=== PATIENT | female | born 1945 | race Caucasian/White ===

== ENCOUNTER 2017-05-31 16:18 | Inpatient (IN) | payer MEDICARE, OTHER ==
[~2017-05-31] VITALS: Ht 162.6 cm; Wt 92.3 kg
[~2017-05-31 16:18] MED LIST: ACETAMINOPHEN500 MG PO; ALBUTEROL2.5 MG/3 M INH; ALLERGY25 MG PO; AMLODIPINE BESYL5 MG PO; AMOX TR-K CLV1 EAC1 PO; ASPIRIN EC325 MG PO; AVASTIN100 MG/4 M IV; AVASTIN100 MG/4 M OU; B12 5,000 MCG1 EACH PO; BENADRYL25 MG PO; BENZONATATE100 MG PO; BUPROPION XL300 MG PO; CARBAMAZEPINE200 MG PO; CARVEDILOL25 MG PO; COZAAR50 MG PO; D3 DOTS2000 UNIT PO; DICLOFENAC SOD2.5 ML OPTH; ERYTHROMYCIN3.5 GM OPTH; FERROUS SULFAT325 MG PO; FLOVENT HFA12 GM INH; FLUZONE HI180 MCG/07 IM; FUROSEMIDE20 MG PO; FUROSEMIDE40 MG PO; GEMFIBROZIL600 MG PO; HYDRALAZINE HCL25 MG PO; IPRAT-ALBUT 0.5-3 ML INH; LIQUITEARS15 ML OU; LOPID600 MG PO; LORAZEPAM0.5 MG PO; LOSARTAN POTASS50 MG PO; LOSARTAN-HCTZ1 EACH PO; MAG-OXIDE400 MG PO; MELOXICAM7.5 MG PO; MUCINEX D ER T1 EACH PO; MUCINEX600 MG PO; NICOTINE PATCH1 EA TD; NICOTINE PATCH1 EAC1 TD; NICOTINE PATCH1 EAC3 TD; NICOTINE1 EAC2 TD; NITROGLYCERIN0.4 MG SL; OMEPRAZOLE20 M1 PO; OPCON-A EYE DRO15 ML OPTH; PLAVIX75 MG PO; POTASSIUM CHLO20 ME1 PO; PRAVASTATIN SOD40 MG PO; PREDNISONE20 MG PO; PROAIR HFA8.5 GM IH; PROAIR HFA8.5 GM INH; PROVENT NS; REFRESH CLASSI1 EACH OS; SIMVASTATIN40 MG PO; TUMS ULTRA400 MG PO; TUMS200 MG PO; ZOSTAVAX VIAL1 VIAL SUB-Q; [UNRECOGNIZED DRUG - OTHER] PO; [UNRECOGNIZED DRUG - OTHER] PO
--- NOTE | 2017-05-31 21:04 | NUR ---
pt arrived to floor via stretcher. pt alert and oriented x4. pleasent demeanor. took standing weight, pt able to stand with 2 person assist and step onto scale, pt sob after standing on scale. gave pt 250mls of water and explained to pt that she is on a fluid restriction. fritz in place and draining freely. pt sl is a field start, wnl and flushes well. gave warm blankets. oriented pt to room and call light. pt has call light in reach. no further needs at this time.
--- NOTE | 2017-05-31 21:59 | NUR ---
PT REFUSED LOVENOX INJECTION TONIGHT, SEE NOTE ON EMAR FOR FURTHER DETAILS. WILL NOTIFY DR SALVADOR VIA MESSAGE ON [employer].
--- NOTE | 2017-05-31 23:02 | NUR ---
PT RESTING QUIETLY. EYES ARE CLOSED, RR WNL AND UNLABORED.
--- NOTE | 2017-06-01 00:22 | NUR ---
PT APPEARS TO BE SLEEPING, RR WNL AND UNLABORED.
--- NOTE | 2017-06-01 02:49 | NUR ---
NOTIFIED DR SALVADOR OF PT'S DECREASED BLOOD PRESSURE. PT ASYMPTOMATIC. HOLD MORNING DOSE OF LASIX PER DR SALVADOR'S ORDER, NURSE NOTIFY ORDER PLACED AND HOLD ACKNOWLEDGMENT PUT ON LASIX IN EMAR. PT NOSE "STUFFED UP." PLACED PT ON OXYMASK AND PUT HUMITITY ON O2 FOR COMFORT. PT HAS NO FURTHER NEEDS AT THIS TIME. CALL LIGHT IN REACH. DOUGLAS DRAINING LARGE AMOUNTS OF DILUTE URINE. CALL LIGHT IN REACH.
--- NOTE | 2017-06-01 05:01 | NUR ---
PT APPEARS TO BE SLEEPING. RR WNL AND UNLABORED. OXYMASK IN PLACE.
--- NOTE | 2017-06-01 05:56 | NUR ---
PT HAD UNEVENTFUL NIGHT, SLEPT MAJORITY OF SHIFT. PLACED PT ON OXYMASK DUE TO HER BREATHING OUT OF HER MOUTH. ALERT AND ORIENTED X4. PT GETS ANXIOUS AT TIMES, CURRENT SMOKER, REFUSES SMOKING CESSATION MEDICATIONS AT THIS TIME. STOOD AT BEDSIDE AND UP TO SCALE WITH 2 PERSON ASSIST, PT STEADY ON FEET ONCE STANDING BUT IS SOB. PT USES CALL LIGHT APPROPRIATLY. LASIX GIVEN.
--- NOTE | 2017-06-01 06:51 | NUR ---
CALLED DR SALVADOR REGARDING LOW BLOOD PRESSURE, ORDERS RECEIVED TO HOLD AM COREG
--- NOTE | 2017-06-01 08:00 | NUR ---
PT AWAKE, SITTING AT EDGE OF BED EATING BREAKFAST. AM MEDS ADMINISTERED. DENIES PAIN OR NAUSEA AT THIS TIME. ALERT AND ORIENTED. C/O SOME DIZZINESS, BP 99/42. CALL LIGHT WITHIN REACH.
--- NOTE | 2017-06-01 09:20 | NUR ---
GOT PT UP TO BEDSIDE COMMODE TO TRY FOR A BM, WAS UNSUCCESSFUL. SHE STATED SHE FELT EXCRUCIATING DIZZINESS. TOLD MARIA ALEJANDRA THE RN, I TOOK HER BLOOD SUGAR (107) AND HER BP WAS FINE. HER OXYGEN SATS WERE 80%, I ASKED THE PT IF SHE WAS A CO2 RETAINER, THEN BUMPED HER O2 UP TO 5 LITERS. NOTIFIED HER NURSE, MARIA ALEJANDRA CHANGED HER TO THE OXYMASK. CALLED DR SALVADOR.
--- NOTE | 2017-06-01 09:25 | NUR ---
JANA ALEMAN ASSISTED PT TO BSC AND BACK TO BED. PT COMPLAINED OF SEVERE DIZZINESS. BP 108/50, O2 SAT 80% ON 3L NC. PT PLACED ON 5L OXY MASK, SATS INCREASED TO 95%. PT GRADUALLY WEANED BACK TO 3LNC, SATTING 90-92%. NOTIFIED DR. SALVADOR ABOUT PT EPISODE, NO NEW ORDERS AT THIS TIME. WILL CONTINUE TO MONITOR. CALL LIGHT WITHIN REACH.
--- NOTE | 2017-06-01 10:00 | NUR ---
PATIENT SITTING UP IN BED. WASHED FACE HANDS AND NECK. REFUSED ORAL CARE. CALL BUTTON IN REACH NO OTHER NEEDS AT THIS TIME.
--- NOTE | 2017-06-01 12:15 | NUR ---
PT ATE SMALL AMOUNT OF LUNCH BUT STATES SHE IS NOT THAT HUNGRY, ASKED ME TO TAKE HER TRAY. SATS 91% ON 4LNC. DENIES FURTHER NEEDS OR CONCERNS AT THIS TIME. CALL LIGHT WITHIN REACH.
--- NOTE | 2017-06-01 12:35 | NUR ---
SD RESTING IN BED, SARCASTIC EVER. SHE MENTIONED HER KNEE GAVE OUT AND DOWN SHE WENT. SEVERAL BRUISES. SHE MENTIONED THAT HER SON WANTS HER TO CONSIDER ASSISTED LIVING. PT NOT TOO KEEN ON THIS IDEA. WE DISCUSSED SOMEMORE, AND HER SON JOCELYN CAME IN TO VISIT. PT REQUESTED COFFEE, ANIL BESS SAID NO MORE FLUIDS BECAUSE HER CHF IF CAUSING FLUID RETENTION. WILL CHECK BACK LATER
--- NOTE | 2017-06-01 13:43 | EKG ---
[facility] [address] [facility] [place] [address] Signed Sinus rhythm with premature atrial complexes Possible Left atrial enlargement Rightward axis Pulmonary disease pattern Nonspecific T wave abnormality Prolonged QT Abnormal ECG When compared with ECG of 17-FEB-2017 16:53, premature atrial complexes are now present Confirmed by FOX SALVADOR MD ([id number]) on 06/01/2017 1:43:07 PM Electronically Signed By: FOX SALVADOR MD 06/01/17 1343 PATIENT NAME: MARIOHUNG Artemio Electrocardiogram DATE OF : 49 PHYSICIAN: FOX SALVADOR MD REPORT #: [id number] REPORT IS CONFIDENTIAL AND NOT TO BE RELEASED WITHOUT AUTHORIZATION
--- NOTE | 2017-06-01 15:16 | NUR ---
PT SITTING UP IN BED WATCHING TV. REBECCA CARE AND DOUGLAS CARE PROVIDED BY JANA ALEMAN. PT SATTING 94% ON 4LNC. DENIES DIFFICULTY BREATHING. CALL LIGHT WITHIN REACH.
--- NOTE | 2017-06-01 16:22 | NUR ---
PT NOT HAPPY WITH FLUID RESTRICTION. NEEDS FREQUENT REMINDERS OF HOW MUCH SHE CAN HAVE. PT ALERT AND ORIENTED. 1PA TO BSC WITH FWW. LOOSE BMX2. CARDIAC DIET, MARIANNA WELL. RECIEVING IV LASIX. DOUGLAS IN PLACE PUTTING OUT CLEAR YELLOW URINE. ON 3L CHRONICALLY, SATTING MID 90'S. OCC MOIST COUGH. NYSTATIN POWDER AVAILABLE FOR PANNUS. SL. 1600ML FLUID RESTRICTION, DAILY WEIGHT.
--- NOTE | 2017-06-01 17:00 | NUR ---
PATIENT REFUSED SHOWER. DOUGLAS CATH CARE DONE. SKIN BREAK DOWN IN THE FOLDS OF HER SKIN AND GROIN. NURSE NOTIFIED.
--- NOTE | 2017-06-01 17:27 | NUR ---
PT C/O STABBING ABD PAIN. NOT LOCALIZED, STATES IT MOVES AROUND. FEELS BETTER WITHOUT MOVEMENT, WORSE WITH MOVEMENT. PT REPORTS NOT PASSING GAS BUT HAS HAD 2BM'S THIS SHIFT, ACTIVE BT. DENIES NAUSEA OR VOMITING. NOTIFIED DR. SALVADOR, STATED HE WOULD BE IN TO SEE HER SHORTLY.
--- NOTE | 2017-06-01 18:52 | NUR ---
PATIENT IN BED WATCHING TV. STATES HER STOMACH PAIN IS STILL THERE BUT NOT BAD. NO NEEDS AT THIS TIME. CALL BUTTON IN REACH.
--- NOTE | 2017-06-01 19:27 | NUR ---
RECEIVED REPORT FROM DAY SHIFT RN. PATIENT IS RESTING IN BED. PATIENT DENIES ANY PAIN. PATIENT DENIES ANY NEEDS AT THIS TIME. CALL LIGHT IN REACH. TELE DC'D. PULSE OX PUT ON PATIENT.
--- NOTE | 2017-06-01 20:31 | NUR ---
PATIENT ASSISTED TO BSC. PATIENT TOLERATED ACTIVITY WELL. PATIENT HAD X1 SMALL BM. PATIENT DID HAVE SOB WITH ACTIVITY. PATIENT IS NOW BACK IN BED RESTING. PATIENT DENIES ANY FURTHER NEEDS. CALL LIGHT IN REACH.
--- NOTE | 2017-06-01 21:45 | NUR ---
PATIENT ASSESMENT COMPLETED. PATIENTS EVENING MEDICATIONS GIVEN PER ORDER. PATIENT REFUSED ENOXAPRIN STATING "THAT MAKES BE BLEED, I AM NOT TAKING THAT STUPID THING HOW MANY TIMES DO I HAVE TO SAY THAT" PATIENT DENIES ANY PAIN AT THIS TIME. PATIENTS IV IS A FIELD START. NEW IV STARTED AND RECORDED. PATIENT IS SL. PATIENT IS AAOX3 AND USES CALL LIGHT APPROPRIATELY. PATIENT DENIES ANY FURTHER NEEDS RAMILA LIGHT IN REACH.
--- NOTE | 2017-06-01 23:52 | NUR ---
PATIENTS PULSE OX ALERTED STAFF THAT HER OXYGEN SATURATION FELL BELOW LIMITS. PATIENTS OXYGEN INCREASED TO 5L VIA NC. PATIENT REFUSES TO WEAR OXY MASK. PATIENT DENIES ANY FURTHER NEEDS. CALL LIGHT IN REACH.
--- NOTE | 2017-06-02 02:10 | NUR ---
PATIENT IS RESTING IN BED WITH EYES CLOSED. PULSE OX READINGS ARE WNL. CALL LIGHT IN REACH.
--- NOTE | 2017-06-02 02:29 | NUR ---
PATIENTS PULSE OX ALERTED STAFF. PATIENTS OXYGEN SATURATION WAS DOWN TO 71 AND KEPT FALLING THE LOWEST IT FELL WAS 62. PATIENT WAS BREATHING THROUGH MOUTH AND VERY SHALLOW WHILE ASLEEP. WOOKE PATIENT AND HAD PATIENT TAKE DEEP BREATHS IN THROUGH HER NOSE AND OUT THROUGH HER MOUTH. PATIENT EDUCATED AN AFGREED TO WEAR OXYMASK AT 5L. PATIENTS OXYGEN SATURATION INCREASED TO 92%. PATIENT DENIES ANY FURTHER NEEDS CALL LIGHT IN REACH.
--- NOTE | 2017-06-02 04:32 | NUR ---
PATIENT IS RESTIN GIN BED WITH EYES CLSOED, BREATHING IS SHALLOW AND UINLABORED. PATIENT REMAINS ON 3L VIA OXYMASK. PULSE OX READINGS ARE WNL.
--- NOTE | 2017-06-02 05:33 | NUR ---
PATIENT RESTED WELL THROUGHOUT THE SHIFT. PATIENT HAD X1 BM. PATIENT IS A SBA PIVOT TO BSC. SOB INCREASES W/ACTIVITY. PATIENT IS NOW ON 3L VIA OXYMASK. PATIENT IS ON A PULSE OX. PATIENT IS ON A CARDIAC DIET. PATIENT IS ON A 1600ML FLUID RESTRICTIONS AND STRUGGLES WITH COMPLIANCE. PATIENT HAS A DOUGLAS IN PLACE , URINE OUTPUT IS QS.
--- NOTE | 2017-06-02 06:45 | NUR ---
PATIENTS VITALS TAKEN AND RECORDED. PATIENT STANDING WEIGHT COMPLEDTED AND RECORDED. PATIENT PLACED BACK ON 3L VIA NC. PATIENT DENIES ANY NEEDS AT THIS TIME. CALL LIGHTIN REACH.
--- NOTE | 2017-06-02 09:03 | NUR ---
PATIENT AWAKE ATE WELL AT BREAKFAST. WHEN ENTERING ROOM, PATIENT ON NC OXYGEN SATURATION 70% PATIENT APPEARED DUSKY. INSTRUCTED PATIENT TO TAKE SOME DEEP BREATHS AND SATURATIONS INCREASED TO 88% ON 3L NC. AUSCULATION OF LUNGS COURSE WITH RALES AND AIR MOVEMENT SOUNDED TIGHT. NOTIFIED RT FOR BREATHING TX THAT WAS SCHEDULED AND DUE. NAHUM RT TO ROOM. PATIENT STATES " I NEED TO HAVE A BM RIGHT NOW". ENCOURAGED PATIENT TO HAVE BREATHING TREATMENT FIRST THEN THE ACTIVITY OF BM. PATIENT AGREED TO POC. FULL BODY ASSESMENT DONE, MORNING MEDICAITONS ADMINISTERED.
--- NOTE | 2017-06-02 10:33 | NUR ---
PT IS SITTING UP IN BED CURRENTLY TALKING TO THE DOCTOR. PT HAS AGREED TO SHOWER BUT WANTS TO WAIT UNTIL LATER DUE TO BEING PAINFUL, NURSE AWARE.
--- NOTE | 2017-06-02 11:00 | NUR ---
ROUNDED WITH DR. SALVADOR, PLAN TO DC DOUGLAS CATHETER IF TOLERATES ACTIVITY WITH SHOWER AND AMBULATING TO RECLINER. EDEMA IMPROVED TO LOWER EXTREMITIES, STILL PAINFUL. CHEST XRAY ORDERED FOR TOMORROW MORNING. PATIENT VERBALIZED UNDERSTANDING OF POC.
--- NOTE | 2017-06-02 11:46 | NUR ---
PT WALKED INTO BATHROOM, SHOWERED WITH ASSISTANCE, AND WALKED TO CHAIR. PT IS NOW SITTING CHAIR RECLINED WITH FEET UP.
--- NOTE | 2017-06-02 13:30 | NUR ---
STELLA DC'D@ [phone]. PATIENT TOLERATED ACTIVITY WELL. APPLIED NYSTATIN TO GROIN AREA AND LOWER PANNUS ON RIGHT SIDE. APPEARS PAINFUL, PATIENT GROANING AND GRIMACING WITH CARE. DISCUSSED WITH DR. SALVADOR. NEW ORDER FOR KENYA.
--- NOTE | 2017-06-02 18:00 | NUR ---
VERBALIZED TO DR. SALVADOR PATIENT OUTPUT AND FREQUENCY TO VOID OVER LAST 4 HOURS, DR. HILTON VERBALIZED AWARENESS. PLAN TO AMBULATE PATIENT IN HALLS TOMORROW. PATIENT IS TOLERATING ACTIVITY TO BSC AND AMBULATING IN BR WELL, SATURATIONS MAINTAINING IN LOW 90 PERCENTILE ON 3-4 L NC. MINIMAL SOB.
--- NOTE | 2017-06-02 18:00 | NUR ---
PATIENT UP FREQUENTLY TO BR, SOMETIMES NEEDING BSC SECONDARY TO URGENCY. PATIENT TOLERATING ACTIVITY WELL. EATING WELL. SATURATIONS MAINTAINGIN IN LOW 90 PERCENTILE ON 3L NC. PATIENT WEIGHT TODAY 245.7 REWEIGHED AROUND 1130, COMPLIANT WITH FLUID RESTRICITON HAS 300 ML LEFT FOR NETWORK DIRECTOR. LUNG SOUNDS COURSE WITH RALES THROUGHOUT, RECIEVING SCHEDULED BREATHING TX. CXR FOR TOMORROW MORNING. VS STABLE.
--- NOTE | 2017-06-02 19:30 | NUR ---
RECEIVED REPORT FROM DAY SHIFT RN. PATIENT IS UP TO THE BSC AT THIS TIME.
--- NOTE | 2017-06-02 19:37 | NUR ---
PATIENT UP TO BEDSIDE CAMODE. SBA W/FWW. NEW GOWN AND LINENS APPLIED. PATIENT COMPLAINED OF HER BOTTOM BEING "RAW" AFTER GOING TO THE BATHROOM. DESATIN CREAM APPLIED PER ORDER. PATIENT REPOSITIONED IN BED. PULSE OX IN PLACE, O2 4L PER NC. O2 SAT OF 92%. CALLLIGHT WITHIN REACH. NO FURTHER REQUEST AT THIS TIME.
--- NOTE | 2017-06-02 21:31 | NUR ---
PATIENT ASSESMENT COMPLETED. PATIENT IS RESTING IN BED WITH LEGS ELEVATED ON PILLOWS. PATIENT RATES PAIN AT A 2/10 IN HER LEGS. PATIENT DENIES THE NEED FOR ANY PAIN MEDICATION. PATIENT IS ON 3L VIA NC AND PULSE OX IN PLACE. PATIENT DENIES ANY NEEDS AT THIS TIME. CALL LIGHT IN REACH.
--- NOTE | 2017-06-02 21:37 | NUR ---
PATIENT UP TO BSC. 1PERSON STANDBY ASSIST. REBECCA CARE PROVIDED AND DESATIN CREAM APPLIED PER ORDER. PATIENT REPOSITIONED IN BED. PULSE OX IN PLACE. 4L NC AND O2 SAT OF 90%. PATIENT DENIES ANY FURTHER NEEDS AT THIS TIME. CALL LIGHT WITHIN REACH.
--- NOTE | 2017-06-02 22:15 | NUR ---
PATIENT ASSISTED TO BSC. PATIENT PIVOT TRANSFERRED TO BSC. PATIENT TOLERATED ACTIVITY WELL. PATIENT IS NOW BACK IN BED RESTING IN BED. PATIENT DENIES ANY FURTHER NEEDS AT THIS TIME. PATIENT IS ON 4L VIA NC AND PULSE OX IN PLACE. CALL LIGHT IN REACH.
--- NOTE | 2017-06-03 00:23 | NUR ---
PATIENT IS RESTING IN BED WITH EYES CLOSED. PULSE OX READINGS ARE WNL. PATIENT REMAINS ON 4L VIA NC. CALL LIGHT IN REACH.
--- NOTE | 2017-06-03 02:29 | NUR ---
PATIENT PLACED ON 4L VIA OXYMASK. PATIENTS PULKSE OX ALERTED STAFF THAT HER OXYGEN SATURATION WAS LOW. PATIENTS CALL LIGHT IN REACH.
--- NOTE | 2017-06-03 02:48 | NUR ---
PATIENT UP TO BSC W/STAND BY ASSIST. REBECCA CARE PROVIDED AND DESATIN APPLIED PER ORDERS. PATIENT COMPLAINED OF CRAMP IN HER RIGHT SIDE. PATIENT STATES SHE THINKS THE PAIN IS GAS RELATED. PATIENT REPOSITIONED IN BED. OXY MASK IN PLACE. O2 SAT 88%. PATIENT DENIES ANY FURTHER NEEDS AT THIS TIME. CALL LIGHT WITHIN REACH.
--- NOTE | 2017-06-03 04:28 | NUR ---
PATIENT UP TO [facility]/ STAND BY ASSIST. PATIENT COMPLAINS OF PAIN FROM HER "HEMORRHOIDS". DESATIN CREAM APPLIED PER ORDERS. PATIENT REPOSITIONED IN BED. NYSTATIN APPLIED TO AFFECTED AREA IN GROIN AND LOWER ABD. PATIENT GIVEN ICE WATER IN COMPLIANCE WITH FLUID RESTRICTION. NO FURTHER REQUEST AT THIS TIME. CALL LIGHT WITHIN REACH.
--- NOTE | 2017-06-03 04:45 | NUR ---
PATIENT COMPLAINED OF SOB. PATIENT SAT UP ON SIDE OF BED. PATIENT REQUEST BREATHING TREATMENT. RT CALLED. PATIENT ON XY MASK AT 4L. O2 SAT AT 94%. WILL REMAIN WITH PTIENT AT THIS TIME.
--- NOTE | 2017-06-03 04:55 | NUR ---
RT IN ROOM. PATIENT RECIEVED BREATHING TREATMENT. PATIENT REPORTED IMPROVED ABILITY TO CATCH HER BREATH. PATIENT REPOSITIONED IN BED. CALL LIGHT IN REACH. NO FURTHER REQUEST AT THIS TIME.
--- NOTE | 2017-06-03 05:17 | NUR ---
PATIENT RESTED WELL THROUGHOUT THE SHIFT. PATIENT IS A 1PA TO [facility] [place]. PATIENT IS ON A CRADICA DIET. PATIENT IS ON A 1600ML FLUID RESTRICTION AND IS TOLERATING IT WELL THIS SHIFT. PATIENT IS ON 4L VIA OXYMASK AND PULSE OX IS IN PLACE. PATIENT RECEIVED X1 PRN NEB. PATIENT IS AAOX3 AND USES CALL LIGHT APPROPRIATLEY.
--- NOTE | 2017-06-03 06:08 | NUR ---
PATIENT IS RESTING IN BED WATHCING TV. PATIENT DENIES ANY PAIN. PATIENT REMAINS ON 4L VIA OXYMASK. PATIENTS STANDING WEIGHT COMPLETED. PATIENT DENIES ANY FURTHER NEEDS AT THIS TIME. CALL LIGHT IS WITHIN REACH.
--- NOTE | 2017-06-03 09:58 | NUR ---
PT IS RESTING IN BED WATCHING TV. PT ASKED FOR ICE WILL CHECK WITH NURSE
--- NOTE | 2017-06-03 10:00 | NUR ---
PATIENT UP TO BATHROOM. HEMRROIHDS ARE BLEEDING, PATIENT IS HAVING FREQUENT SMALL BLACK STOOLS, NOTED ON IRON SUPPLEMENT AND CONTINUES TO PRODUCE GOOD URINE OUTPUT. VS STABLE. PATIENT ON 4L NC, EATING BREAKFAST. TOLERATING ACTIVITY TO BATHROOM WELL. FULL BODY ASSESMENT DONE.
--- NOTE | 2017-06-03 12:56 | NUR ---
MEDICATION RECONCILLIATION DIFFICULT TASK. PATIENT'S DR NOTE FROM [facility] HAS NUMEROUS MEDICATIONS, BUT PATIENT'S SON BROUGHT IN MEDICATION BOTTLES, BUT THE PATIENT ONLY HAS THE FOLLOWING MEDICAITONS: PRAVASTATIN 40 MG TAB FILLED ON 09/15/2016 FOR #90, YET HAS #116 AMLODIPINE 5 MG TAB FILLED 10/02/2016 UNOPENED CARVEDILOL 25 MG TAB, 3 BOTTLES, FILLED 07/20/2016, 10/02/2016, 12/15/2016, TWO UNOPENED, 3RD BOTTLE WITH #137/180 CLOPIDOGREL 75 MG TAB, 3 BOTTLES, FILLED 05/19/2016, 01/05/17, 03/22/2017, TWO UNOPENED, 3RD BOTTLE WITH #80/90 NITROSTAT FILLED 04/01/2016 ADVAIR 250/50 UNOPENED OVER THE COUNTER COUGH AND COLED PRODUCTS [facility] PHENYLEPHRINE PATIENT IS CLEARLY NON-COMPLIANT. PERHAPS THIS PATIENT NEEDS A BUSINESS PLANNING DIRECTOR OR FAMILY TO HELP [facility] MEDICATION ADMINISTRATION.
--- NOTE | 2017-06-03 13:00 | NUR ---
PATIENT PANNUS IMPROVING, APPLIED NYSTATIN AND DESTITIN TO AREA. PATIENT UP TO BR, TOLERATING ACTIVITY WELL. NO COMPLAINTS OF PAIN. PATIENT STATES "I WILL TAKE A WALK IN THE HALLS AFTER A NAP".
--- NOTE | 2017-06-03 14:21 | NUR ---
PT IS RESTING IN BED SAFELY WITH CALL LIGHT IN REACH. PT DID NOT NEED ANYTHING ELSE
--- NOTE | 2017-06-03 17:00 | NUR ---
PATIENT UP AMBULATING IN HALLS, TOLERATING ACTIVITY WELL, CONVERSING EASILY NO SOB. PHYSICAL THERAPY DID AN EVALUATION ON PATIENT FOUND PATIENT TO BE 80% WHILE AMBULATING BACK TO ROOM ON 5L NC. NEED TO INCREASE OXYGEN WHILE UP AMBULATING, PLAN FOR PHYSICAL THERAPY 2-3 MORE DAYS INPATIENT AND NEEDS HOME HEALTH PT AND CAREGIVER. DR. SALVADOR AWARE.
--- NOTE | 2017-06-03 18:09 | NUR ---
PT IS SITTING UP IN BED EATING DINNER. PT DID NOT NEED ANYHTING AT THE MOMENT
--- NOTE | 2017-06-03 18:50 | NUR ---
PATIENT UP AMBULATING WITH PHYSICAL THERAPY AND STAFF. NOTED PATIENT DESATS INTO LOW 80 PERCENTILE. NEED TO INCREASE OXYGEN WHILE UP 1-2 LITERS AND MONITOR. LASIX WILL RESUME TOMORROW. PATIENT FOLLOWED STRICT FLUID INTAKE. PATIENT CONTINUES TO BE UP FREQUENTLY URINATING AND HAVING BMS. HEMORRHOIDS INFLAMED AND BLEEDING.
--- NOTE | 2017-06-03 20:11 | NUR ---
DECLINES LOVENOX SC "DONT WANT IT" TEACHING DONE, STILL DECLINES
--- NOTE | 2017-06-03 20:15 | NUR ---
pt visiting, no requests, no c/o pain, O2 in place, no c/o SOB
--- NOTE | 2017-06-04 00:29 | NUR ---
PT ON 4L N/C O2, SLEEPING SOUNDLY, CONT PULSE OX IN PLACE, DESATTING TO 66%. O2 INCREASED TO 6L. SATS INMEDIATELY UP TO 90-92%, PT STATES 'MAR A MOUTH BREATHER, OF COURSE I DESAT WHEN I GO TO SLEEP, JUST GIVE ME THE MASK' RT NOTIFIED, HERE TO ASSESS PT. PT UP TO BSC. MASK READY TO BE PLACED ON AFTER PT GETS BACK TOP BED, DENIES SOB OR CP
--- NOTE | 2017-06-04 02:00 | NUR ---
Pt up to bsc, voided, lotion to area between buttocks, red colored irritated from frequent loose stools yesterday am and frequent wiping due to urinary frequency. Back to bed, tolerated well, O2 6L via mask, no request. 1 person assist, legs still tight from edema.
--- NOTE | 2017-06-04 03:00 | NUR ---
Up to bsc, voided, back to bed, tolerated well. uses one person assist. Lotion to red area between buttocks, area red and tender. Pt back in bed, Oxy mask in place at 6L O2. cont pulse ox in place sats 92-95%
--- NOTE | 2017-06-04 05:26 | NUR ---
Pt currently resting, eyes closed. O2 at 6L via mask, pt is a mouth breather and she desats at HS and after walking. 4L/NC when awake, gets neb txs. Pt lungs are coarse bilat. Continues to have tight edema of legs, upper butocks and left lateral body and abd area. on Lasix therapy. Received lotion to area between buttocks as it is red and painful from too many loose stools yesterday and urinary frequency. Pt declined Lovenox. Not very receptive to teaching
--- NOTE | 2017-06-04 08:35 | NUR ---
PT RESTING SOUNDLY IN BED, EYES CLOSED, RESP EVEN AND UNLABORED. SATS 95% ON 5LNC. AWOKE EASILY TO VOICE. REQUESTED ASSISTANCE TO COMMODE. SBA TO BSC WITH WALKER. VOIDED AND BACK TO BED. SITTING UP AT EDGE OF BED EATING BREAKFAST, AM MEDS ADMINISTERED. C/O HEMORROID PAIN, OTHERWISE DENIES COMPLAINTS OR CONCERNS. DENIES DIFFICULTY BREATHING OR SOB. CALL LIGHT WITHIN REACH.
--- NOTE | 2017-06-04 10:20 | NUR ---
PT UP TO COMMODE FREQUENTLY THIS AM D/T IV LASIX. AMB TO RESTROOM WITH WALKER FOR BM. PT BACK TO BED. CALL LIGHT WITHIN REACH.
--- NOTE | 2017-06-04 13:04 | NUR ---
PT ATE ALL OF BREAKFAST AND LUNCH. UP TO COMMODE FREQUENTLY. PREPARATION H AND TUCKS APPLIED. PT REPORTS SLIGHT RELIEF. CALL LIGHT WITHIN REACH.
--- NOTE | 2017-06-04 15:04 | NUR ---
PT SBA TO BSC. PREPARATION H AND TUCKS PADS APPLIED. ASSISTED BACK TO BED. CALL LIGHT WITHIN REACH.
--- NOTE | 2017-06-04 15:42 | NUR ---
I HAVE ASKED PT SEVERAL TIMES NOW WHEN SHE WOULD LIKE TO SHOWER AND SHE HAS REFUSED EVERY TIME. NURSE IS AWARE
--- NOTE | 2017-06-04 17:04 | NUR ---
PT UP TO COMMODE WITH MINIMAL ASSIST. BACK TO BED. CALL LIGHT WITHIN REACH.
--- NOTE | 2017-06-04 17:32 | NUR ---
PT UP TO COMMODE. PT AMB TO SIT UP IN CHAIR. BED MALFUNCTIONED SO REPLACED. FAMILY AT BEDSIDE.
--- NOTE | 2017-06-04 18:15 | NUR ---
PT IS SITTING UP IN BED VISITING WITH FAMILY. PT REFUSED DINNER STATNG SHE WAS NOT HUNGRY
--- NOTE | 2017-06-04 19:39 | NUR ---
up to bsc, voided clear yellow urine. tolerated well, Lotion and tucks applied to buttocks due to redness and painful areas between buttocks. back to bed. Cont pulse ox in place, 91% on return to bed. O2 at 4Ln/c Pt repositioned self in bed. Still not very receptive to teaching, Generalzided tight edema of buttocks, abd and legs still present, but much improved from yesterday. No c/o pain or sob. Repositoned self in bed, improved mood.
--- NOTE | 2017-06-04 20:41 | NUR ---
PT UP TO NSC, VOIDED, BACK TO BED. ONE PERSON ASSIST. CREAM TO AREA BETWEEN BUTTOCKS
--- NOTE | 2017-06-05 00:01 | NUR ---
Up to bsc, voided, back to bed. O2 via mask in place, cont pulse ox in place, tolerating well, lotion to paz area applied. Cooperative, no c/o sob
--- NOTE | 2017-06-05 05:56 | NUR ---
CURRENTLY RESTING, EYES CLOSED, NO RESP DISTRESS. OXY MASK AT 4L ON WHEN ASLEEP. USES CALL LIGHT APPROPRIATELY, UP TO BSC SEVERAL TIMES THIS SHIFT, VOIDING 350-400CC CLEAR URINE EVERY TIME. PT ON LASIX THERAPY. DAILY WEIGHT . PT CURRENT WEIGHT 220.4#, APPROX WEIGHT LOSS 20#. LOTION TO AREA BETWEEN BUTTOCKS DUE TO REDNESS AND IRRITATION FROM URINARY FREQUENCY. DECREASED OF EDEMA AROUND LEGS, AND ABD, LUNGS VERY IMPROVED FROM YESTERDAY CLEAR AT THIS TIME. NO SOB, GETS NEB TX. UP TO BSC WITH ONE ASSIST. DECLINED LOVENOX.
--- NOTE | 2017-06-05 09:00 | NUR ---
PT AWAKE IN BED WATCHING TV. DENIES PAIN, DIFFICULTY BREATHING OR OTHER CONCERNS. LOWER EXTREMITIY EDEMA DRASTICALLY IMPROVING, 1-2+ PITTING EDEMA. PT REQUESTED ASSISTANCE TO COMMODE. STRENGTH HAS IMPROVED GREATLY. REQUIRES MINIMAL ASSIST IN AND OUT OF BED WITH WALKER TO COMMODE OR BATHROOM. ASSISTED BACK TO BED. PT REPORTS HEMORROID PAIN IMPROVING. SATTING 95% ON 4LNC. BACK TO BED. CALL LIGHT WITHIN REACH. ATE BREAKFAST, NO FURTHER NEEDS OR CONCERNS.
--- NOTE | 2017-06-05 12:10 | NUR ---
PT UP TO COMMODE, ASSISTED BACK TO BED. UP SITTING AT EDGE OF BED EATING LUNCH INDEPENDENTLY. DENIES NEEDS OR CONCERNS AT THIS TIME. CALL LIGHT WITHIN REACH.
--- NOTE | 2017-06-05 15:24 | NUR ---
PT ASSISTED TO COMMODE AND BACK TO BED. CALL LIGHT WITHIN REACH.
--- NOTE | 2017-06-05 18:20 | NUR ---
PT ATE ALL OF DINNER, MARIANNA WELL. ASSISTED TO COMMODE AND BACK TO BED. DENIES NEEDS OR CONCERNS AT THIS TIME. CALL LIGHT WITHIN REACH.
--- NOTE | 2017-06-05 20:28 | NUR ---
PT UP TO COMMODE AGAIN, SECOND TIME SINCE 1929. [facility] ASSIST WITH TRANSFER. PT REFUSED THE ENOXAPARIN INJECTION, STATES THAT SHE HAS "REFUSED THEM ALL SINCE SHE HAS BEEN HERE" EXPLAINED THE IMPORTANCE, SHE SAID SHE DIDN'T CARE.
--- NOTE | 2017-06-05 22:15 | NUR ---
PT UP TO BSC WITH MIMINAL ASSISTANCE TO VOID. COMPLAINT OF HEMMORDIAL PAIN, PREP H APPLIED. SATS IN 90'2 ON 4L.
--- NOTE | 2017-06-06 00:10 | NUR ---
PT WITH EYES CLOSED, RESP EVEN AND UNLABORED, LAYING ON HER BACK WITH NC IN PLACE @ 4L.
--- NOTE | 2017-06-06 02:25 | NUR ---
PT WITH EYES CLOSED. HAS USED HER CALL LIGHT X 1 SINCE MIDNIGHT TO USE THE BSC WITH ONE ASSIST. BACK TO BED, OXYGEN IN PLACE.
--- NOTE | 2017-06-06 06:37 | NUR ---
PT UP TO BATHROOM SEVERAL TIMES THIS SHIFT WITH NADIA. ASSIST. O2 ON @ 4L SAT IN THE 90'S. PLEASANT AND COOPERATIVE. FLUID RESTRICTIONS CONTINUE.
--- NOTE | 2017-06-06 08:05 | NUR ---
patient resting in bed with her eyes closed.
--- NOTE | 2017-06-06 08:30 | NUR ---
patient sitting up in bed eating breakfast with no oxygen on. oxygen SAT's 77%. Put NC oxygen back on patient and SAT's back up to 90%. call button in reach. no other needs at this time.
--- NOTE | 2017-06-06 08:45 | NUR ---
PT AWAKE IN BED WATCHING TV, RECEIVING NEB TREATMENT. ATE ALL OF BREAKFAST, MARIANNA WELL. DENIES PAIN OR OTHER CONCERNS. SATTING 92% WITH NEB TREATMENT. AM MEDS GIVEN AFTER TREATMENT. BACK ON 4LNC. WITHIN LIMITS OF FLUID RESTRICTION. CALL LIGHT WITHIN REACH.
--- NOTE | 2017-06-06 09:00 | NUR ---
patient in bed resting with her eyes closed.
--- NOTE | 2017-06-06 09:15 | NUR ---
PT AWAKE IN BED, ATE ALL OF BREAKFAST. DENIES PAIN, NAUSEA, SOB, OR OTHER CONCERNS. SATTING 93% ON 4LNC. AM MEDS ADMINISTERED. CALL LIGHT WITHIN REACH.
--- NOTE | 2017-06-06 10:30 | NUR ---
patient up to bed side commode with 1 person assist.
--- NOTE | 2017-06-06 11:10 | NUR ---
talked to patient about assisting her with a shower after lunch. PT in working with patient.
--- NOTE | 2017-06-06 12:22 | NUR ---
PT SITTING UP AT EDGE OF BED EATING LUNCH. ASSESSMENT BENIGN. CALL LIGHT WITHIN REACH.
--- NOTE | 2017-06-06 14:05 | NUR ---
PT MINIMAL ASSIST TO BSC, VOIDED AND HAD SMALL BM. AMB BACK TO BED. CALL LIGHT WITHIN REACH.
--- NOTE | 2017-06-06 15:32 | NUR ---
TALKED TO PATIENT ABOUT SHOWERING NOW. SHE STATES THAT SHE JUST WANTS TO NAP. TOLD PATIENT THAT AT 1600 I'LL BE IN TO ASSIST WITH A SHOWER.
--- NOTE | 2017-06-06 16:30 | NUR ---
PATIENT ASSIST WITH SHOWER. SHAMPOO AND REBECCA CARE DONE. DENTURES OUT AND BRUSHED. PATIENT BACK TO BED. CALL BUTTON IN REACH. NO OTHER NEEDS AT THIS TIME.
--- NOTE | 2017-06-06 17:30 | NUR ---
PT SITTING AT BEDSIDE EATING DINNER, MARIANNA WELL. DENIES NEEDS OR CONCERNS AT THIS TIME. CALL LIGHT WITHIN REACH.
--- NOTE | 2017-06-06 18:50 | NUR ---
ASSISTED PATIENT UP TO BATHROOM. REBECCA CARE DONE BY AID. PATIENT BACK TO BED WITH CALL BUTTON IN REACH. WARM BLANKET GIVEN. NO OTHER NEEDS AT THIS TIME.
--- NOTE | 2017-06-06 20:00 | NUR ---
SON CAME IN AND DISCUSSED DISCHARGE PLANS WITH MOM. SHE BECAME VERY UPSET AND TEARFUL. SHE DID CALM DOWN AFTER TALKING WITH HER FOR A WHILE. WATCHING TV AT THIS TIME, DENIES ANY NEEDS. CALL LIGHT IN EASY REACH.
--- NOTE | 2017-06-06 22:30 | NUR ---
PT IS RESTING QUIETLY ON BED. WEARING OXYMASK WHILE RESTING. CALL LIGHT IN EASY REACH.
--- NOTE | 2017-06-07 02:05 | NUR ---
SBA USING FWW INTO BATHROOM TO VOID, STATES SHE IS RESTING BETTER TONIGHT. DENIES FURTHER NEEDS. CALL LIGHT IN EASY REACH.
--- NOTE | 2017-06-07 03:45 | NUR ---
REQUESTED SOMETHING FOR A HEADACHE. TYLENOL 500MG GIVEN.
--- NOTE | 2017-06-07 05:04 | NUR ---
PT UPSET BEGINNING OF SHIRT, SON DISCUSSED DC PLANS WITH HER. CALMED DOWN AND SLEPT WELL, NEEDED REMINDING TO CALL FOR ASSIST WHEN AMB TO BATHROOM. TYLENOL FOR ABERNATHY. SLEPT WITH OXYMASK AND O2 @ 4L. PLEASED EDEMA IS DECREASED IN LE. WALKING MUCH BETTER.
--- NOTE | 2017-06-07 06:47 | NUR ---
PT WEIGHT TODAY IS 208.2. ADMIT WEIGHT WAS 253.3.
--- NOTE | 2017-06-07 06:50 | NUR ---
NOTE INCORRECTLY ENTERED INCORRECT WEIGHT THIS AM, ATTEMPTED TO CORRECT IT, "UNDO" BUT IT CLEARED OUT HER ADMISSION WEIGHT. THIS WAS CORRECTED BY IT TREVON Fong TODAYS WEIGHT IS 208.2 ADMIT WEIGHT WAS 253.3
--- NOTE | 2017-06-07 07:15 | NUR ---
HAVE RECEIVED REPORT FROM RN. PT. IS SLEEPING AT THIS TIME.
--- NOTE | 2017-06-07 08:58 | NUR ---
MORNING MEDICATIONS GIVEN. PATIENT HAS NO NEEDS AT THIS TIME. PATIENT STATES SHE IS FEELING IRRITABLE.
--- NOTE | 2017-06-07 09:00 | NUR ---
ASSIST RN ALEXIA WITH PLACING SUPPOSITORY. PT TOLERATED WELL. HAD JUST BEEN UP TO RESTROOM AND WAS STILL SOB. O2 AT 7L.
--- NOTE | 2017-06-07 09:57 | NUR ---
PATIENT SITTING UP IN BED DRINKING COFFEE AND WATCHING TV. WASHED HANDS AND FACE. TALKED TO PATIENT ABOUT GETTING UP IN THE CHAIR THIS AM. WILL TRY AGAIN. CALL BUTTON IN REACH NO OTHER NEEDS AT THIS TIME.
--- NOTE | 2017-06-07 10:50 | NUR ---
PT. IS SITTING IN BED WATCHING TV. ASSESSMENT DONE. PT. STATES THAT SHE IS FEELING IRRITABLE.
--- NOTE | 2017-06-07 10:57 | NUR ---
ASSISTED PT TO RESTROOM. HEMORROIDS QUITE PAINFUL UPON RETURNING TO BED. PT UNABLE TO STATE ANYTHING THAT WOULD HELP.
--- NOTE | 2017-06-07 11:15 | NUR ---
PATIENT IS RESTING IN BED WATCHING TV. IV DC'D PER DR. SALVADOR. PATIENT HAS NO NEEDS AT THIS TIME.
--- NOTE | 2017-06-07 11:39 | NUR ---
PATIENT UP TO BATHROOM. COMPLAINING OF PAINFUL HEM. IN RECTUM. PREP. H. APPLIED.
--- NOTE | 2017-06-07 13:45 | NUR ---
PATIENT IS RESTING IN BED WATCHING TV. PATIENT DOES NOT HAVE ANY NEEDS AT THIS TIME. SHE STATES THAT SHE HAS RELIEF FROM HEMORRHOID PAIN.
--- NOTE | 2017-06-07 14:40 | NUR ---
PT TOLD ME RIGHT UP FRONT THAT TODAY WAS NOT A GOOD DAY. SHE APOLOGIZED, AND WE BEGAN TO DISCUSS HER FEELINGS AND WHAT HAS LED UP TO THIS. SHE THOUGHT SHE WAS HEADED HOME TODAY, AND THAT DIDN'T HAPPEN. SHE HAS SEVERE CHF, AND REALLY LIMITS HRE ABILITY TO CARE FOR HERSELF. SHE LET ME PRAY FOR HER, SHE SMILED AND HELD MY HAND. GOD BLESS HER
--- NOTE | 2017-06-07 14:52 | NUR ---
PATIENT SITTING UP IN BED WATCHING TV. TALKED TO PATIENT ABOUT ASSISTING HER THIS AFTERNOON WITH SOME REBECCA CARE. NO OTHER NEEDS AT THIS TIME. CALL BUTTON IN REACH.
--- NOTE | 2017-06-07 14:57 | NUR ---
PATIENT IS RESTING IN BED WATCHING TV. PATIENT HAS NO NEEDS AT THIS TIME.
--- NOTE | 2017-06-07 15:30 | NUR ---
CARE CONFERENCE ATTENDEES: PT, SON OMAR, AND , AND PT FRIEND CEDRIC. STAFF: DR SALVADOR, [employer] MANAGEMENT, ALEXIA RN, [facility] DR SALVADOR DISCUSSED WITH THE PT THAT HE AND WE FEEL IT IS UNSAFE FOR THE PT TO RETURN TO HER HOME BY HERSELF SHE IS NOT ABLE TO TAKE GOOD/SAFE CARE OF HERSELF. DR SALVADOR HAD HAD THIS CONVERSATION PREVIOUSLY WITH PT, BUT WANTED ALL INVOLVED TO BE THERE. PT DID GET TEARFUL WHEN THIS WAS BROUGHT UP. GAVE SON A LIST OF LOCAL ASSISTED LIVING FACILITIES AND TALKED WITH THEM ABOUT THE FACT THAT MEDICARE DOES NOT PAY FOR ASSISTED LIVING AND TALKED WITH THEM ABOUT GETTING THE PT HOOKED UP WITH MEDICAID AGAIN THEY CAN GET HELP WITH PAYMENT THROUGH THIS. DR SALVADOR AND I TOLD PT AND FAMILY THAT PT COULD STAY HERE SWING BED (TRANSITIONAL) WHILE THEY ARE TRYING TO MAKE ARRANGEMENT FOR THE ASSISTED LIVING FOR THE PT.
--- NOTE | 2017-06-07 16:30 | NUR ---
PATIENT REFUSED SHOWER. BED BATH DONE. REBECCA AND SKIN CARE DONE. PATIENT SITTING AT BEDSIDE WITH DINNER TRAY. CALL BUTTON IN REACH. FRESH ICE WATER GIVEN. NO OTHER NEEDS AT THIS TIME.
--- NOTE | 2017-06-07 17:03 | NUR ---
PT. IS SITTING ON END OF BED EATING DINNER. ASSESSMENT DONE, PATIENT HAS NO NEEDS AT THIS TIME.
--- NOTE | 2017-06-07 17:59 | NUR ---
PATIENT HAS BEEN RESTING IN BED THROUGHOUT THE DAY. VITALS HAVE BEEN STABLE, NO COMPLAINTS OF NAUSEA. PATIENT WAS HAVING 10/10 PAIN DUE TO HEMORRHOIDS. HEMORRHOIDS TREATED WITH PREPARATION H AND HYDROCORTISONE SUPPOSITORY. CARE CONFERENCE WAS DONE TODAY WITH CARE TEAM (SEE CARE CONFERENCE NOTE). THERE WERE NO ACUTE CHANGES FROM BEGINNING OF SHIFT ASSESSMENT. INTENTIONAL ROUNDING DONE WITH ALL PATIENT'S NEEDS MET.
--- NOTE | 2017-06-07 17:59 | NUR ---
PATIENT IS SITTING IN BED VISITING WITH FAMILY. HAS NO NEEDS AT THIS TIME.
--- NOTE | 2017-06-07 19:26 | NUR ---
patient up to bathroom stand by assist with walker. oral care done.
--- NOTE | 2017-06-07 19:52 | NUR ---
RESTING ON BED DENIES ANY NEEDS, STATES SHE IS HAPPY WITH NEW ROOM, BETTER VIEW. DOING WELL WITH FLUID RESTRICTION. CALL LIGHT IN EASY REACH.
--- NOTE | 2017-06-07 22:00 | NUR ---
FAMILY IN TO VISIT EARLIER. STATES SHE IS READY TO GO TO SLEEP NOW, CALL LIGHT IN EASY REACH. DOES NOT WANT TO WEAR OXYMASK TONIGHT. AGREES IF OXIMETER IS SOUNDING SHE WILL PUT IT ON.
--- NOTE | 2017-06-08 02:00 | NUR ---
USING CALL LIGHT APPROP FOR ASSIST INTO BATHROOM USING FWW. TOLERATED WELL, DENIES FURTHER NEEDS. MAINTAINING OXIMETER 90% ON 4L/NC.
--- NOTE | 2017-06-08 06:54 | NUR ---
PT STATES SHE SLEPT BETTER TONIGHT. WORE NANSAL CANNULA ALL NIGHT AND WAS ABLE TO MAINTAIN OXIMETER >90%. ONE PERSON ASSIST TO AMBULATE TO BATHROOM. USING CALL LIGHT APPROPRIATELY.
--- NOTE | 2017-06-08 08:00 | NUR ---
PT AWAKE IN BED WATCHING TV. ATE 100% OF BREAKFAST. SATTING 92% ON 4L NC, DENIES SOB. DENIES PAIN OR NAUSEA. REFUSED SUPP FOR HEMORROIDS THIS AM, STATED "THEY AREN'T REALLY BUGGING ME THIS MORNING." ASSESSMENT COMPLETED. CALL LIGHT WITHIN REACH.
--- NOTE | 2017-06-08 08:30 | NUR ---
patient washed hands and face. states that she just want to sleep because she hates herself right now. talked to her about going for a walk with me this am and gave some encouragment. call button in reach no other needs at this time.
== END 2017-06-08 12:05 | disposition swing bed (61) | DRG 292 ==
LOC: ED 16:18 → MS 19:00
PROVIDERS: ADMIT Internal Medicine
DX: I11.0 Hypertensive heart disease with heart failure (principal); J96.11 Chronic respiratory failure with hypoxia; J96.12 Chronic respiratory failure with hypercapnia; I50.33 Acute on chronic diastolic (congestive) heart failure; J44.9 Chronic obstructive pulmonary disease, unspecified; E78.5 Hyperlipidemia, unspecified; Z66 Do not resuscitate; R26.2 Difficulty in walking, not elsewhere classified; F17.210 Nicotine dependence, cigarettes, uncomplicated; E83.42 Hypomagnesemia; I27.2 Other secondary pulmonary hypertension; Z91.14 Patient's other noncompliance with medication regimen; Z91.81 History of falling
CPT/HCPCS: 36415; 36600; 71020; 73560; 80048; 80053; 80069; 81001; 82607; 82728; 82746; 82803; 83540; 83735; 83880; 84100; 84466; 84484; 85025; 85045; 87077; 87088; 87186; 93005; 93010; 94640; 94667; 94668; 94760; 94762; 97110; 97116; 97161; 97162; 97165; 97530; 99406; J1650; J3475

== ENCOUNTER 2017-06-08 12:05 | Inpatient (IN) | payer MEDICARE, OTHER ==
[~2017-06-08] VITALS: Ht 162.6 cm; Wt 90.5 kg
--- NOTE | 2017-06-08 12:20 | NUR ---
PT AT EDGE OF BED EATING LUNCH. DENIES NEEDS OR CONCERNS AT THIS TIME. CALL LIGHT WITHIN REACH.
--- NOTE | 2017-06-08 14:02 | NUR ---
ELECTRONICS TECHNOLOGY INSTRUCTOR STAFF BUSY WITH PT. ASKED IF I WOULD COME BACK LATER. WILL FOLLOW NEEDED
--- NOTE | 2017-06-08 14:30 | NUR ---
REBECCA CARE DONE. PATIENT ABULATED HALLWAY ONE TIME AROUND ONE PERSON ASSIST WITH WALKER. PATIENT STATES THAT SHE IS IRRITATED DUE TO HER HEMOROID PAIN AND BEING TIERED. PATIENT REFUSED SHOWER. BACK IN BED WITH CALL BUTTON IN REACH. NO OTHER NEEDS AT THIS TIME.
--- NOTE | 2017-06-08 14:45 | NUR ---
PATIENT TOOK HER OXYGEN TUBING OFF OXYGEN LEVEL AT 74%. PLACED NC BACK ON AND BUMPED OXYGEN UP TO 6 PER RT REQ. SAT BACK UP TO 93% PATIENT NOW ON 5L OF O2 And level at 91%. patient states she forgot to put NC back on. call button in reach. no other needs at this time.
--- NOTE | 2017-06-08 16:04 | NUR ---
PT INDEPENDENT IN ROOM. IN BED WATCHING TV AT THIS TIME. DENIES NEEDS OR CONCERNS. SATTING 92% ON 4LNC. CALL LIGHT WITHIN REACH.
--- NOTE | 2017-06-08 19:45 | NUR ---
PT SITTING UP IN BED WATCHING TV. NC IN PLACE. PT ALERT AND ORIENTED X4. PLEASENT AT THIS TIME. GAVE PT'S 300MLS OF FRESH ICE WATER FOR THE NIGHT. PT HAS NO FURTHER NEEDS AT THIS TIME. CALL LIGHT IN REACH.
--- NOTE | 2017-06-08 22:15 | NUR ---
PLACED OXYMASK ON PT WHILE SLEEPING DUE TO MOUTH BREATHING. SAT'S DROPPING INTO MID 80'S WHILE SLEEPING WITH NC. SATING IN THE LOW 90'S WITH OXYMASK. CALL LIGHT IN REACH.
--- NOTE | 2017-06-08 23:45 | NUR ---
PT UP TO RESTROOM TO VOID. BACK TO BED. NO FURTHER NEEDS. CALL LIGHT IN REACH.
--- NOTE | 2017-06-09 05:26 | NUR ---
PT HAD UNEVENTFUL NIGHT, SLEPT MAJORITY OF SHIFT. PLACED ON OXYMASK DURING SLEEP. PT USES CALL LIGHT APPROPRIATLY. SOB ON EXERTION. USING FWW WELL, A LITTLE UNSTEADY AT TIMES WHEN FIRST STANDING. ALERT AND ORIENTED X4, PLEASENT DEMEANOR.
--- NOTE | 2017-06-09 08:20 | NUR ---
PATIENT UP TO THE SIDE OF THE BED FOR BREAKFAST. PATIENT IS ALERT AND ORIENTED AND REMAINS ON 5L OF OXYGEN PER NASAL CANNULA. PATIENT BREAKFAST TRAY SET UP FOR HER AT THIS TIME AND AM ASSESSMENT COMPLETE AND MEDICATION GIVEN.
--- NOTE | 2017-06-09 10:09 | NUR ---
PATIENT SITTING UP IN BED, PATIENT ATE 50% OF HER BREAKFAST AND I AND O COMPLETE. PATIENT HAS NO C/O SOB AT THIS TIME BUT DROPPED TO 79% WHEN WORKING WITH PHYSICAL THERAPY. PATIENT NOW BACK UP TO 5L PER NC AND SATURATIONS SITTING AT 90%
--- NOTE | 2017-06-09 12:51 | NUR ---
patient ate 75% of her lunch and is now sitting semi fowlers in bed resting. patient is on oxygen at 4l per nc with no c/o sob o2 sat are at 90%.
--- NOTE | 2017-06-09 15:11 | NUR ---
patient up ambulating the hallway with physical therapy and her front wheeled walker.
--- NOTE | 2017-06-09 16:16 | NUR ---
[facility] SAID NO SHOWER TODAY BUT WILL SHOWER TOMORROW.
--- NOTE | 2017-06-09 16:34 | NUR ---
AWAKE IN BED. HELP TRANSFER HER TO HER CHAIR. FRESH ICE WATER. LINEN CHANGE. EMPTY GARBAGE. CLEANED UP ROOM. CALL LIGHT IN REACH.
--- NOTE | 2017-06-09 19:17 | NUR ---
PATIENT UP TO THE BATHROOM WITH NO ASSIST. PATIENT STEADY ON HER FEET AND KEPT HER OXYGEN ON WHILE SHE AMBULATED.
--- NOTE | 2017-06-09 19:51 | NUR ---
IN TO CHECK ON PT, PT SITTING AT BEDSIDE TALKING WITH FAMILY. PT AAOX3 AND PLEASANT. NO NEEDS AT THIS TIME. CALL LIGHT WITH IN REACH.
--- NOTE | 2017-06-09 20:30 | NUR ---
IN TO SEE PT, PT AWAKE. ASSESSMENT DONE. PM MEDICATIONS GIVEN. RT IN FOR NEBULIZER TREATMENT. NO FURTHER NEEDS AT THIS TIME. CALL LIGHT WITH IN REACH.
--- NOTE | 2017-06-09 21:10 | NUR ---
IN ROOM TO ASSIT PT TO RESTROOM. PT UP WITH MINIMAL ASSIST. TOLERATED WELL. PT STATES THAT SHE IS UPSET AND HAD "BEEN ARGUING WITH HER SON WHILE HE WAS HERE." PT APPEARS TEARY, STATING HER FAMILY WANTS HER TO GO TO ASSITED LIVING. PT FEELS THAT THE MD AGREES WITH HER SON. PT STATES "I GUESS IT DOESN'T MATTER WHAT I WANT ANYMORE." PT STATES SHE WANTS TO GO HOME AND FEELS THAT SHE WOULD BE OKAY LIVING BY HERSELF. LISTENED AND ACKNOWLEDGED PT CONCERNS. ADVISED THE PT WILL PASS ON HER FEELINGS IN REPORT.
--- NOTE | 2017-06-09 23:30 | NUR ---
IN TO CHECK ON PT, PT APPEARS TO BE SLEEPING. RR EVEN AND UNLABORED. O2 PER NC. PULSE OX IN PLACE. CALL LIGHT WITH IN REACH.
--- NOTE | 2017-06-10 01:47 | NUR ---
IN TO CHECK ON PT. O2 CANNULA OUT OF NOSE, O2 SAT 77%. NC REPLACED, O2 RECOVERED TO 90%. NO FURTHER NEEDS AT THIS TIME. CALL LIGHT IN REACH.
--- NOTE | 2017-06-10 03:09 | NUR ---
IN TO CHECK ON PT, PT SITTING AT BEDSIDE. [address], PULSE OX ON. RR EVEN AND UNLABORED. NO NEEDS AT THIS TIME. PT WATCHING TV. CALL LIGHT WITH IN REACH.
--- NOTE | 2017-06-10 04:33 | NUR ---
PT HAS RESTED INTERMITTENTLY THROUGH OUT THE SHIFT. PT HAS REMAINED ON NC ALL SHIFT. O2 SATURATIONS 88-90% ON 4 L. PT UP WITH 1 PERSON STANDBY ASSISTS, SOB WITH EXERTION IMPROVING. PT AAO X3, PLEASANT AND CALL APPROPRIATLY. [address] IN [address].
--- NOTE | 2017-06-10 07:30 | NUR ---
REPORT RECEIVED FROM KAREN MA AT THIS TIME. PATIENT SITTING SEMI FOWLERS IN BED AND RESTING WITH HOB ELEVATED. OXYGEN AT 4L PER NC WITH O2 SAT AT 90%. PATIENT HAS NO C/O SOB AT THIS TIME.
--- NOTE | 2017-06-10 07:57 | NUR ---
AM MEDICATION PASS DONE AND BREAKFAST ORDER CALLED DOWN TO THE KITCHEN. RT IN THE ROOM FOR NEBULIZER TREATMENT.
--- NOTE | 2017-06-10 09:09 | NUR ---
PATIENT C/O ABERNATHY PAIN AT THIS TIME, TYLENOL 500MG PO GIVEN AT THIS TIME.
--- NOTE | 2017-06-10 10:07 | NUR ---
PATIENT RESTING UP IN THE CHAIR WITH OXYGEN ON AT 4L PER NC. PATIENT DENIES ANY NEEDS AT THIS TIME. ABERNATHY PAIN A LITTLE IMPROVED.
--- NOTE | 2017-06-10 11:04 | NUR ---
PT OUT WALKING WITH P.T. WALKED WITH THEM AND PT TOLD ME SHE IS UNHAPPY THAT I DIDN'T STOP BY YESTERDAY-SO I KNOW SHE IS FEELING BETTER! WILL CONTINUE TO FOLLOW
--- NOTE | 2017-06-10 11:06 | NUR ---
patient sitting up in the bed reading her paper.
--- NOTE | 2017-06-10 13:19 | NUR ---
patient ate 100% of her lunch and is now sitting up in the bed reading a book. patient has no c/o sob or pain at this time.
--- NOTE | 2017-06-10 15:05 | NUR ---
PATIENT ASSISTED UP TO THE BATHROOM, HAD A FORMED SMALL BM. ASSISTED PATIENT WITH REBECCA CARE.
--- NOTE | 2017-06-10 17:22 | NUR ---
GOT A SHOWER TODAY FROM [facility]
--- NOTE | 2017-06-10 17:32 | NUR ---
DOCTOR KRISH IN TO SEE THE PATIENT AT THIS TIME, PATIENT WILL STAY THE NIGHT AND D/C TO [facility] IN THE AM
--- NOTE | 2017-06-10 19:45 | NUR ---
RECIEVED REPORT FROM DAY SHIFT NURSE. PT RESTING IN BED. NASAL CANNULA IN PLACE. MEAL TRAY REMOVED, PT ATE 100%. PT REQUESTING SODA. REMINDED PT HER FLUID RESTRICTION IS STILL IN PLACE. PT DENIES FURTHER NEEDS. CALL RAMSEY WITHIN REACH.
--- NOTE | 2017-06-10 20:54 | NUR ---
PT IS ALERT, IN GOOD SPIRITS, SITTING UP ON BED READING A BOOK. RT IN TO GIVE SCHEDULED NEBS. DENIES ANY NEEDS. CALL LIGHT IN EASY REACH.
--- NOTE | 2017-06-11 00:30 | NUR ---
PT UP TO BATHROOM. STATES SHE IS RESTING GOOD TONIGHT. MAINTAINING OXIMETER >90% ON O2 @ 4L/NC.
--- NOTE | 2017-06-11 06:16 | NUR ---
PT SLEPT WELL LAST NIGHT. MAINTAINING OXIMETER >90% ON O2 @ 4L/NC. IN BETTER SPIRITS, SBA IN ROOM WITH WALKER. USING CALL LIGHT APPROP WHEN NEEDING ASSIST.
--- NOTE | 2017-06-11 10:00 | NUR ---
PATIENT UP AMBULATING IN HALLS, DOING BEDSIDE EXCERCISES TODAY. NOTED SOME SOB WITH EXERTION TO BATHROOM. PATIENT APPEARED TO RECOVER FROM ACTIVITY WELL. PATIENT REQUESTING MORE FLUIDS THEN FLUID RESTRICTION ALLOWS, PROVIDED EDUCATION ON IMPORTANCE OF FLUID RESTRICITON WITH CHF. VS STABLE. LUNG SOUNDS COURSE THROUGHOUT.
--- NOTE | 2017-06-11 14:00 | NUR ---
PATIENT RESTING IN BED. FAMILY AND FRIENDS TO VISIT.
--- NOTE | 2017-06-11 18:30 | NUR ---
PATIENT HAD UNEVENTFUL DAY, FRIENDS VISITED THROUGHOUT DAY. VS STABLE. NO COMPLAINTS OF PAIN. APPLIED CREAMS TO REBECCA AREA. PATIENT REPORTE HEMORRHOIDS ARE FEELING BETTER. TOLERATED ACTIVITY THROUGHUT DAY WITH LIMITED SOB.
--- NOTE | 2017-06-11 19:59 | NUR ---
RESTING COMFORTABLY ON BED READING A BOOK, DENIES ANY NEEDS, CALL LIGHT IN EASY REACH.
--- NOTE | 2017-06-11 22:03 | NUR ---
RECIEVED REPORT FROM KAREN MA.
--- NOTE | 2017-06-11 22:37 | NUR ---
PT RANG RAMSEY AND ASKED LEAD APPLIER IF SHE COULD HAVE SOME TYLENOL. LEAD APPLIER RELAYED MESSAGE TO ME. I WENT IN THE ROOM TO FIND PT ASLEEP EVIDENCE BY SNORING.
--- NOTE | 2017-06-11 23:52 | NUR ---
PT RESTING IN BED. PT ASKED FOR TYLENOL FOR A ABERNATHY. WATER PITCHER FILLED. PT DENIES FURTHER NEEDS. CALL RAMSEY IN REACH.
--- NOTE | 2017-06-12 00:45 | NUR ---
PT SLEEPING. NC IN PLACE. CALL RAMSEY IN REACH.
--- NOTE | 2017-06-12 02:33 | NUR ---
PT SLEEPING. NC IN PLACE. CALL RAMSEY IN REACH.
--- NOTE | 2017-06-12 03:30 | NUR ---
RT IN REPLACING HUMIDIFICATION WATER.
--- NOTE | 2017-06-12 05:43 | NUR ---
PT SLEPT ALL NIGHT. ON 4L O2 WITH ADEQUATE O2 SATS. PT INDEPENDENT IN ROOM. HERE FOR REHAB. PLAN IS TO GO TO ASSISTED LIVING.
--- NOTE | 2017-06-12 08:00 | NUR ---
PATIENT RESTING BACK WITH EYES CLOSED. GENTLY WOKE PATIENT, PERFORMED FULL BODY ASSESMENT. PATIENT REPORTED SLEPT WELL THROUGHOUT NIGHT. NO COMPLAINTS OF PAIN OR DISCOMFORT AT THIS TIME.
--- NOTE | 2017-06-12 09:54 | NUR ---
patient was sleeping, i woke her to do her vitals for the shift, she then went back to sleep.
--- NOTE | 2017-06-12 11:30 | NUR ---
PATIENT UP AMBULATING IN ROOM INDEPENDENTLY, NO NOTED SOB. APPEARS TO BE DOING WELL. FOLLOWING FLUID RESTRICTION WELL. FAMILY VISITING AT BEDSIDE.
--- NOTE | 2017-06-12 16:16 | NUR ---
PATIENT DOING CROSSWORD PUZZLES AND WATCHING TELEVISION. HAS NOT COMPLAINTS OF PAIN OR DISCOMFORT. STATES " I AM SO READY TO GET OUT OF THIS HOLE".
--- NOTE | 2017-06-12 19:32 | NUR ---
RECIEVED REPORT FROM DAY SHIFT NURSE. PT RESTING IN BED, NC IN PLACE. PT DENIES NEEDS AT THIS TIME. CALL RAMSEY IN REACH.
--- NOTE | 2017-06-12 22:00 | NUR ---
PT RESTING IN BED. LOTION APPLIED TO BLE. WATER PITCHER FILLED. PT DENIES FURTHER NEEDS. CALL RAMSEY IN REACH.
--- NOTE | 2017-06-13 01:20 | NUR ---
PT SLEEPING. CALL RAMSEY IN REACH.
--- NOTE | 2017-06-13 04:57 | NUR ---
PT SLEEPING. CALL RAMSEY IN REACH.
--- NOTE | 2017-06-13 04:59 | NUR ---
PT SLEPT ALL NIGHT WITH 4L O2 VIA NC. PT UP INDEPENDENTLY IN ROOM. PT STATES HEMORRHOIDS FEELING BETTER. HEMORRHOIDAL SUPPOSITORY SWITCHED TO PRN. TYLENOL ADMINISTERED FOR ABERNATHY. NO OTHER COMPLAINTS.
--- NOTE | 2017-06-13 07:38 | NUR ---
Assessment complete. Patient waiting for breakfast. Discussed fluid restriction with patient who is compliant at this time. O2 in place 4L NC. Lungs very dim, scattered exp wheezes noted.
--- NOTE | 2017-06-13 11:47 | NUR ---
This RN spends one hour talking with patient and family and MD. Patient has been wanting to leave AMA, patient is very upset about having to go to assisted living. After a long tearful discussion patient decides to stay in the hospital. This will likely be a recurring topic of discussion as patient is very unhappy to be moving in to assisted living.
--- NOTE | 2017-06-13 14:17 | NUR ---
Patient requesting more fluids, reminded patient of fluid restriction.
--- NOTE | 2017-06-13 14:47 | NUR ---
PT HAS HAD COMPANY SEVERAL DIFFERENT TIMES TODAY. SHE SEEMS MORE RESTED AND IS BREATHING WITH OUT SO MUCH WHEEZING. GOOD VISIT, ANOTHER PT CAME BY TO VISIT. I LEFT SO THEY COULD CONNECT.
--- NOTE | 2017-06-13 15:38 | NUR ---
SPOKE WITH PT SON ON THE PHONE THIS AFTERNOON, HE STATED THAT HE CONTACTED [facility] AND TALKED WITH THEM ABOUT HIS MOTHER AND THEY STATED THEY WOULD CALL HIM BACK WITH 48 HOURS, WELL HE STATES THEY CALLED [employer] AND GOT HER ALL UPSET ETC AND TALKED WITH HER TELLING HER THINGS THAT WEREN'T NECESSARILY SO. [facility] IS SENDING SOMEONE TO DO AN EVALUATION ON HER ON TUESDAY OF THIS WEEK AT 1100. OMAR SAID HE WOULD BE HERE. I WILL ALSO BE THERE TO MEET WITH THEM TO SEE HOW MUCH ASSISTANCE WE COULD GET HER. I DID TALK TO KHRIS ABOUT IF THEY CAN'T GET HER INTO AN ASSISTED LIVING FACILITY WHAT WOULD THE PLAN BE. HE STATED WELL SHE WILL HAVE TO GO HOME AND WE WILL HAVE TO FIGURE IT OUT. WE DISCUSSED HER MAJOR ISSUE IS SHE DOESN'T TAKE HER MEDS--HE SAID THAT IF SOMEHOW WE COULD GET HER REMINDED DAILY OF THIS IT WOULD MAKE A DIFFERENCE. WE WERE THINKING WE COULD GET HOME HEALTH IN TO SEE HER FOR MED COMPLIANCE, BUT THAT IS ONLY A COUPLE DAYS A WEEK. HE WOULD LIKE TO SEE ABOUT A CAREGIVER A COUPLE HOURS A DAY TO HELP AROUND THE HOUSE. WE WILL REVISIT THIS AFTER THE [facility] APPT.
--- NOTE | 2017-06-13 16:40 | NUR ---
Patient resting in bed, O2 in place. Patient denies needs at this time. Reading a book in no distress.
--- NOTE | 2017-06-13 18:14 | NUR ---
PATIENT VERY UNHAPPY ABOUT ASSISTED LIVING, HOWEVER THIS RN/FAMILY/DC FORESTRY ADVISER/MD/FRIENDS HAVE SPENT A GOOD AMOUNT OF TIME TALKING WITH PATIENT ABOUT ASSISTED LIVING AND SHE IS MORE RECEPTIVE AT THIS ITME. PATIENT IS INDEPENDENT IN ROOM, SOMETIMES USING WALKER, OTHER TIMES USING FURNITURE TO GET AROUND. PATIENT WEARS 4L O2 AT ALL TIMES.
--- NOTE | 2017-06-13 19:36 | NUR ---
RECIEVED REPORT FROM DAY SHIFT. PT RESTING IN BED READING BOOK. NC IN PLACE. PT DENIES NEEDS AT THIS TIME. CALL RAMSEY IN REACH.
--- NOTE | 2017-06-13 22:22 | NUR ---
PT RESTING IN BED. WATER PITCHER FILLED. C/O ABERNATHY-ADMINISTERED TYLENOL PER DEC. APPLIED LOTION TO BLE. CALL RAMSEY IN REACH.
--- NOTE | 2017-06-14 | NUR ---
PT RESTING. DENIES NEEDS. CALL RAMSEY IN REACH.
--- NOTE | 2017-06-14 04:00 | NUR ---
PT SLEEPING. NC IN PLACE. CALL RAMSEY IN REACH.
--- NOTE | 2017-06-14 05:23 | NUR ---
PT HAD AN UNEVENTFUL NIGHT. SLEPT MOST OF THE NIGHT. INDEPENDENT WITH WALKER IN ROOM. PLAN IS FOR D/C TO ASSISTED LIVING TODAY. THERE IS A PLAN IN PLACE IF SHE REFUSES AND WANTS TO GO HOME. PT NOT HAPPY ABOUT CHANGE IN HOSPITALISTS.
--- NOTE | 2017-06-14 08:40 | NUR ---
Patient given AM meds. Patient has just finished eating her breakfast. Patient states, "I am not taking a god dam shower in your freezing cold bathroom, I refuse! I am going home today and I don't care what they say, They can't keep me locked up in this place like a prisoner." Patient is adament that she will be discharged home today.
--- NOTE | 2017-06-14 10:31 | NUR ---
PT IS SITTING UP IN BED WITH CALL LIGHT IN REACH. PT DOES NOT WANT TO SHOWER B/C SHE IS HOPING TO BE DISCHARGED TO HOME. PT DID NOT NEED ANYTHING ELSE AT THE MOMENT
--- NOTE | 2017-06-14 10:35 | NUR ---
Patient watching tv in no distress.
--- NOTE | 2017-06-14 11:12 | NUR ---
PATIENT SLEEPING, O2 IN PLACE.
--- NOTE | 2017-06-14 14:08 | NUR ---
Patient yelling at staff, tearful and very upset. Patient states, "I've got to get out of here. I have this place." This RN talks with demand planner and patient. Plan is patient will be evaluated on . Patient aware, very upset at this time.
--- NOTE | 2017-06-14 16:18 | NUR ---
UPDATED MD, WHO INCREASES FLUID RESTRICTIONS AND CHANGES LASIX DOSE.
--- NOTE | 2017-06-14 16:33 | NUR ---
THIS RN SITS AND TALKS WITH PATIENT WHO IS IN BETTER SPIRITS NOW. PATIENT GIVEN COFFEE AND A COOKIE. PATIENT DENIES NEEDS AT THIS TIME.
--- NOTE | 2017-06-14 17:26 | NUR ---
Patient upset about being in hospital. Patient wants to be discharged home. Patient aware plan is to have and evaluation on at 11:00 and discharge plan will be made from that point. Patient really wants to be discharged home. Patient is at her baseline at this time. Independant in room, O2 at 4L nc.
--- NOTE | 2017-06-14 18:03 | NUR ---
PT IS SITTING UP IN BED EATING HER DINNER PT ASKED FOR ICE FOR HER ICE TEA
--- NOTE | 2017-06-14 21:36 | NUR ---
PT SITTING UP IN BED, WATCHING TV. ALERT AND ORIENTED X4, PLEASENT AT THIS TIME. PT EXPRESSED SADDNESS BECAUSE SHE FOUND OUT THAT HER DOG HAD BEEN KILLED TODAY, SAT WITH PT FOR A WHILE AND TALKED ABOUT THE DOG, PT IS VISIBLY UPSET ABOUT HER DOG. PT HAS FRESH ICE WATER AT BEDSIDE. CALL LIGHT IN REACH. NO FURTHER NEEDS AT THIS TIME.
--- NOTE | 2017-06-15 01:21 | NUR ---
pt has been sleeping well tonight. eyes are closed, rr wnl and unlabored.
--- NOTE | 2017-06-15 05:02 | NUR ---
pt complained of 9/10 headache pain. gave tylenol per request. no further needs. call light in reach.
--- NOTE | 2017-06-15 05:18 | NUR ---
PT HAD UNEVENTFUL NIGHT, SLEPT MAJORITY OF SHIFT. PT IS UPSET ABOUT LOSING HER DOG YESTERDAY. TYLENOL GIVEN FOR HEADACHE THIS MORNING. PT ALERT AND ORIENTED X4, PLEASENT THROUGH SHIFT. COMPLYING WITH FLUID RESTRICTION. INDEPENDANT.
--- NOTE | 2017-06-15 07:30 | NUR ---
Patient up to standing scale. Patient has lost over 50# since origional admission. Patient amazed by this fact. Educated patient about the importance of watching her fluid intake, output and monitoring daily weight.
--- NOTE | 2017-06-15 09:09 | NUR ---
PATIENT AWAKE IN BED. GOT PATIENT SET UP FOR BREAKFAST. CLEANED ROOM. EMPTYED GARBAGE. PATIENT TOOK SHOWER. COMPLETE LINEN CHANGE.
--- NOTE | 2017-06-15 11:30 | NUR ---
PATIENT TAKEN OUTSIDE IN A WHEELCHAIR FOR SOME FRESH AIR. THIS RN ACCOMPANIES PATIENT WHO IS VERY HAPPY TO BE OUTSIDE. PATIENT'S SON OS BRINGING HER DOG TO VISIT LATER TODAY. THESE EFFORTS HAVE GREATLY INCREASED PATIENT'S COMPLIANCE AND MORALE.
--- NOTE | 2017-06-15 12:09 | NUR ---
PT SEEMS TO BE DOING WELL TODAY, ESPECIALLY AFTER THE NEWS OF HER DOG DYING YESTERDAY. ANIL BARRON OFFERED TO TAKE PT FOR A WALK, AND SHE JUMPED AT THE CHANCE. I WILL CONTINUE TO FOLLOW
--- NOTE | 2017-06-15 16:33 | NUR ---
PATIENT AWAKE IN BED. ASH HINDS TOOK PATIENT FOR A WALK. TOOK PATIENT TO THE BATHROOM AND ASSISTED BACK TO BED. PATIENT HAS CALL LIGHT IN REACH.
--- NOTE | 2017-06-15 19:28 | NUR ---
RECEIVED REPORT FROM DAY SHIFT RN. PATIENT HAS FAMILY IN THE ROOM AT THIS TIME. PATIENT DENIES ANY NEEDS.
--- NOTE | 2017-06-15 21:14 | NUR ---
PATIENT ASSESMENT COMPLETED. PATIENTS EVENING MEDICATIONS GIVEN PER ORDER. PATIENT COMPLAINS OF A HEADACHE. PATIENT GIVEN PRN TYLENOL FOR HEADACHE. PATIENT REMAINS ON 4L VIA NC. PATIENT DENIES ANY SOB. PATIENT IS INDPENDENT IN THE ROOM. PATIENT DENIES ANY FURTHER NEEDS. PATIENTS CALL LIGHT IS WITHIN REACH.
--- NOTE | 2017-06-15 23:29 | NUR ---
PATIENT IS RESTING IN BED WITH EYES CLOSED, RR 17
--- NOTE | 2017-06-16 01:59 | NUR ---
PATIENT GIVEN PRN TYELNOL FOR A HEADACHE. PATIENT DENIES ANY SOB. PATIENT REMAINS ON 4L VIA CT. PATIENT REMAINS INDEPENDENT IN THE ROOOM. PATIENT DENIES ANY FURTHER NEEDS. CALL LIGHT IN REACH.
--- NOTE | 2017-06-16 04:21 | NUR ---
PATIENT IS RESTING IN BED WITH EYES CLOSED, RR 16 PATIENTS BREATHING IS EVEN AND UNLABORED. PATIENT REMAINS ON 4L VIA NC. CALL LIGHT IN REACH.
--- NOTE | 2017-06-16 05:30 | NUR ---
PATIENT RESTED WELL THROUGHTOUT THE SHIFT. PATIENT RECEIVED PRN TYLENOL FOR A HEADACHE X2. PATIENT DENIED ANY SOB. PATIENT IS ON 4L VIA NC. PATIENT IS INDEPENDENT IN THE ROOM. PATIENT IS ON CARDIAC DIET W/1200ML FLUID RESTRICITON. PATIENT IS AAOX3 AND USES CALL LIGHT APPROPRIATLEY.
--- NOTE | 2017-06-16 06:31 | NUR ---
PATIENT IS RESTING IN BED WATCHING TV. PATIENT REMAINS ON 4L VIA NC. PATIENT DENIES ANY NEEDS AT THIS TIME. CALL LIGHT IN REACH.
--- NOTE | 2017-06-16 07:00 | NUR ---
BEDSIDE HANDOFF REPORT RECEIVED FROM FILAMENT MAKER RN. PT RESTING IN BED. PT DENIES NEEDS AT THIS TIME.
--- NOTE | 2017-06-16 08:45 | NUR ---
PT RESTING IN BED. PT COMPLAINT OF HEADACHE, REQUESTING TYLEON, GIVEN. PT LUNG SOUNDS CLEAR, DIMINISHED BASES, ON 4L NC, O2 VICKI 88-91%. PT TOLERATING CARDIAC DIET, FOLLOWING FLUID RESTRICTION. PT WITH TRACE EDEMA TO BLE, CMS INTACT. PT INDEPENDENT IN ROOM. PT DENIES NEEDS AT THIS TIME.
--- NOTE | 2017-06-16 12:30 | NUR ---
IN PT ROOM AT 1130 WITH PT, HER SON AND THE WORKER FROM [employer] AND PEOPLE WITH DISABLITIES PT WAS BEING EVALUATED PER THE PT REQUEST FOR ME TO BE THERE. TALKED WITH THE HAND COMPOSITOR AFTER THE EVAL AND SHE STATED IT WOULD BE A MINIMUM OR A WEEK MAYBE 2 BEFORE THEY WOULD HAVE AN ANSWER TO WHETHER SHE WOULD BE ELIGIBLE FOR ANY KIND OF HELP. DISCUSSED IT WITH THE PT THEN WITH HER SON AND THE PT IS STATING SHE IS GOING HOME THAT NO ONE CAN KEEP HER HERE ANY LONGER, DISCUSSED THIS WITH THE SON AND HE STATES HE CAN'T KEEP HER HERE IF SHE WANTS TO GO HOME. SHE DID TELL THE WORKER THAT SHE WOULD GO TO A ASSISTED LIVING FACILITY WHEN THE MONEY/ MEDICAID THING IS WORKED OUT. PT IS GOING HOME WITH HOME HEALTH RN, PT, LIGHT BULB TESTER AND A BATH AIDE. SON ALSO STATES HE WILL BE CHECKING ON HER MUCH MORE FREQUENTLY,
--- NOTE | 2017-06-16 13:45 | NUR ---
PT TO BE DC'D TODAY. WANTS TO FEEL SHE IS IN CONTROL OF HER OWN LIFE, RESISTS WHEN SHE FEELS SHE IS BEING TOLD WHAT TO DO. I HAVE COME TO UNDERSTAND PT, AND SHE SEEMS TO APPRECIATE MY VISITS. HAD PRAYER WITH PT, AND RN CAME IN TO HELP GET HER READY.
--- NOTE | 2017-06-16 14:10 | NUR ---
FAXED CHART NOTES TO [facility] FOR PT TO GET A WALKER, PT HAD TOLD ME SHE DIDN'T HAVE ONE SO WE DISCUSSED IT AND SHE SAID SHE WANTED ONE. FAXED ORDER, H AND P, DC SUMMARY, PT EVAL AND NOTES. SPOKE WITH ZACK.
[2017-06-16] MEDS ORDERED: METOPROLOL SUCC25 MG PO (14:42)
[2017-06-16] MEDS ORDERED: FUROSEMIDE20 MG PO ×2 (14:43→17:48)
[2017-06-16] MEDS ORDERED: NICOTINE PATCH1 EA TD (14:46)
[2017-06-16] MEDS ORDERED: NICORETTE4 M2 BUCCAL (14:46)
--- NOTE | 2017-06-16 16:00 | NUR ---
PT SON HERE TO PICK PT UP, STATES I HAVE HER WALKER FROM HOME IN THE TRUNK SO WE CAN GO LOOK AT A ROOM AT [facility]. I WAS GOING TO TALK TO HIM ABOUT PICKING UP ONE THAT I HAD ORDERED PER PT REQU. WE WENT IN THE ROOM AND ASKED THE PT IF SHE NEEDED ONE, AND SHE SAID YES UNTIL SON SAID HE HAD HERS IN THE TRUNK OF THE CAR. ANYWAY. I CANCELED THE ORDER FOR THE WALKER WITH [facility] PT ALREADY HAS ONE.
[2017-06-16] MEDS ORDERED: FERROUS SULFAT325 MG PO (17:48)
[2017-06-16] MEDS ORDERED: PRAVASTATIN SOD40 MG PO (17:48)
[2017-06-16] MEDS ORDERED: POTASSIUM CHLO20 ME1 PO (17:48)
[2017-06-16] MEDS ORDERED: ASPIRIN EC325 MG PO (17:48)
[2017-06-16] MEDS ORDERED: IPRAT-ALBUT 0.5-3 ML INH (17:48)
[2017-06-16] MEDS ORDERED: MAG-OXIDE400 MG PO (17:48)
[2017-06-16] MEDS ORDERED: LOPID600 MG PO (17:48)
[2017-06-16] MEDS ORDERED: ACETAMINOPHEN500 MG PO (17:48)
[2017-06-16] MEDS ORDERED: NITROGLYCERIN0.4 MG SL (17:48)
[2017-06-16] MEDS ORDERED: REFRESH CLASSI1 EACH OS (17:48)
[2017-06-16] MEDS ORDERED: TUMS200 MG PO (17:48)
[2017-06-16] MEDS ORDERED: ALBUTEROL2.5 MG/3 M INH (17:48)
[2017-06-16] MEDS ORDERED: FLOVENT HFA12 GM INH (17:48)
== END 2017-06-16 16:07 | disposition home or self-care (01) | DRG 292 ==
LOC: MS 12:05
PROVIDERS: ADMIT Internal Medicine
DX: I50.33 Acute on chronic diastolic (congestive) heart failure (principal); J96.11 Chronic respiratory failure with hypoxia; J96.12 Chronic respiratory failure with hypercapnia; J44.9 Chronic obstructive pulmonary disease, unspecified; E78.5 Hyperlipidemia, unspecified; Z91.14 Patient's other noncompliance with medication regimen; Z72.0 Tobacco use
CPT/HCPCS: 36415; 80048; 94640; 94668; 94760; 97110; 97116; 97165; 97530; 97535

== ENCOUNTER 2018-04-30 08:30 | Emergency (ER) | payer MEDICARE, OTHER ==
[~2018-04-30] VITALS: Ht 162.6 cm; Wt 90.5 kg
[~2018-04-30 08:30] MED LIST changes: +METOPROLOL SUCC25 MG PO; +NICORETTE4 M2 BUCCAL
[2018-04-30] MEDS ORDERED: PERCOCET 5-3251 EACH PO (12:14)
== END 2018-04-30 13:02 | disposition home or self-care (01) ==
LOC: ED 08:30
PROC: 0T9B70Z Drainage of Bladder with Drainage Device, Via Natural or Artificial Opening (ICD-10-PCS; principal; 2018-04-30)
DX: N13.2 Hydronephrosis with renal and ureteral calculous obstruction (principal); J44.9 Chronic obstructive pulmonary disease, unspecified; I11.0 Hypertensive heart disease with heart failure; I50.9 Heart failure, unspecified; F17.200 Nicotine dependence, unspecified, uncomplicated; Z88.5 Allergy status to narcotic agent; Z79.899 Other long term (current) drug therapy; Z79.82 Long term (current) use of aspirin
CPT/HCPCS: 51701; 74176; 80053; 81001; 83690; 85025; 85610; 85730; 96374; 96375; 96376; 99284; J1170; J2405

== ENCOUNTER 2018-05-02 09:45 | Emergency (ER) | payer MEDICARE, OTHER ==
[~2018-05-02] VITALS: Ht 162.6 cm; Wt 90.5 kg
[~2018-05-02 09:45] MED LIST changes: +PERCOCET 5-3251 EACH PO
[2018-05-02] MEDS ORDERED: NORCO 5-325 TA1 EACH PO (10:10)
[2018-05-02] MEDS ORDERED: CIPRO250 MG PO (10:11)
[2018-05-02] MEDS ORDERED: NORCO 10-325 T1 EACH PO (10:12)
== END 2018-05-02 10:25 | disposition home or self-care (01) ==
LOC: ED 09:45
DX: N39.0 Urinary tract infection, site not specified (principal); R10.9 Unspecified abdominal pain; I11.0 Hypertensive heart disease with heart failure; I50.9 Heart failure, unspecified; F17.200 Nicotine dependence, unspecified, uncomplicated; Z88.5 Allergy status to narcotic agent; Z79.82 Long term (current) use of aspirin; Z79.899 Other long term (current) drug therapy
CPT/HCPCS: 99283

== ENCOUNTER 2018-06-26 07:50 | Day surgery (SDC) | payer MEDICARE, OTHER ==
[~2018-06-26] VITALS: Ht 162.6 cm; Wt 81.9 kg
[~2018-06-26 07:50] MED LIST changes: +ASPIR-LOW81 MG PO; +CIPRO250 MG PO; +DOCUSATE SODIU100 MG PO; +LIPITOR80 MG PO; +NORCO 10-325 T1 EACH PO; +NORCO 5-325 TA1 EACH PO; +SYMBICORT 16010.2 GM INH; +VITAMIN D32000 UNI1 PO
--- NOTE | 2018-06-26 08:25 | NUR ---
PATIENT IS READY FOR SURGERY. SON IN ROOM WITH PATIENT.
--- NOTE | 2018-06-26 09:16 | NUR ---
INTO PT ROOM AT REQUEST OF LAB TO HELP WITH DRAW. LAB DRAW ATTEMPTED X1 UNSUCCESSFUL. IN TO HELP WITH LAB DRAW, 2ND ATTEMPT UNSUCCESSFUL. PT STATES "GET OUT, I AM DONE." LAB DRAW ATTEMPT DISCONTINUED. DISCUSSED WITH DR. TRUJILLO AND CATERINA NEED FOR T&S PRIOR TO SURGERY. RN OFFERED TO DRAW LAB AFTER PT IS IN OR. PER DR. MATA AND REBECCA,VIBRATING SCREED OPERATOR OKAY TO POSTPONE T&S AT THIS TIME. WILL DISCUSS DRAWING IN OR AFTER VIBRATING SCREED OPERATOR IN TO EVALUATE PT.
--- NOTE | 2018-06-26 11:32 | NUR ---
06/26/18 1132 Jillian Foster 1115 PT ARRIVED IN PACU SLEEPY WITH ORAL AIRWAY IN PLACE. 1130 PT AWAKE. ORAL AIRWAY REMOVED. ASKING FOR WATER. OXYGEN MASK REMOVED AND O2 AT 3L VIA NC PLACED. 1132 SIPPING ON WATER.
--- NOTE | 2018-06-26 12:04 | NUR ---
PATIENT RETURNED TO DAY SURGERY AT 1150. PATIENT RATES ABDOMINAL PAIN 3/10, GIVEN WARM BLANKET TO ABDOMEN. PATIENT IS ON 3L O2 VIA NASAL CANNULA AND THIS IS CHRONIC FOR HER. DOUGLAS CATHETER IS INTACT AND DRAINING MEDIUM RED URINE. PATIENT IS NOT NAUSEATED AND IS TOLERATING COFFEE AND WATER.
[2018-06-26] MEDS ORDERED: PERCOCET 5-3251 EACH PO ×2 (12:31)
--- NOTE | 2018-06-26 13:20 | NUR ---
PATIENT UP TO AMBULATE IN HALLWAY WITH STANDBY ASSIST. DOUGLAS CATHETER LIGHTENING UP TO PINK/RED AND DOUGLAS D/C'D. PATIENT EATING CRACKERS AND PLAN TO GIVE PAIN PILL SOON.
[2018-06-26] MEDS ORDERED: AUGMENTIN 875-1 EACH PO ×2 (13:25)
--- NOTE | 2018-06-26 14:10 | NUR ---
PATIENT TOLERATING PO INTAKE, PO PAIN MEDICATIONS, WAS ABLE TO VOID AND AMBULATE INDEPENDANTLY. RIGHT HAND IV D/C'D WITH CATHETER INTACT. PATIENT D/C INSTRUCTIONS GIVEN, AND DRESSED SELF. PATIENT GIVEN WHEELCHAIR RIDE TO FRONT DOOR FOR SON TO TRANSPORT HOME TO [facility].
[2018-06-27] MEDS ORDERED: AUGMENTIN 875-1 EACH PO (05:06)
[2018-06-27] MEDS ORDERED: PERCOCET 5-3251 EACH PO (05:07)
--- NOTE | 2018-06-28 07:44 | OR ---
[facility] [address] [place], [place] [address] Signed DATE OF OPERATION: 06/26/2018 SURGEON: Saloni Trujillo MD PREOPERATIVE DIAGNOSES: 1. Gross hematuria. 2. Right distal ureteral mass. NAMES OF PROCEDURES: 1. Right retrograde pyelogram with diagnostic cystoscopy and right ureteral washings. 2. Right semi-rigid ureteroscopy with biopsy of right distal ureteral mass and partial laser ablation of right ureteral mass. ANESTHESIA: MAC. ESTIMATED BLOOD LOSS: 5 mL. DRAINS: A 22-P[place] Islander two-way Rausch catheter, connected to gravity drainage. INDICATIONS FOR PROCEDURE: Ms. Pastor is a very pleasant 72-year-old female with a past medical history significant for severe coronary artery disease status post five coronary stents and severe COPD, on supplemental oxygen, who recently presented to my clinic upon referral from her fpc after she began to experience intermittent bouts of severe gross hematuria and flank pain. She underwent a contrasted CT scan, which revealed the presence of an approximately 1 cm distal right ureteral mass that was very suspicious for ureteral carcinoma. After undergoing a thorough preoperative evaluation to ensure safety of the patient while undergoing anesthetic, she now presents today to undergo a biopsy of the suspicious ureteral mass in order to better plan the next phase in her clinical care. OPERATIVE FINDINGS: 1. On cystoscopy, there was no evidence of any suspicious masses, lesions, or stones within the bladder. Bilateral ureteral orifices are in their normal anatomic location. Her left ureteral orifice is completely normal in appearance. Her right ureteral orifice, however, appears to be swollen and ecchymotic, with small amounts of blood effluxing from the ureteral orifice. 2. Right retrograde pyelogram revealed a 3-4 cm obstruction of the distal right ureter Electronically Signed By: SALONI TRUJILLO MD 06/28/18 0744 PATIENT NAME: HUNG PASTOR OPERATIVE REPORT DATE OF : 49 REPORT #: [id number] PHYSICIAN: SALONI TRUJILLO MD PCP: FOX SALVADOR MD REPORT IS CONFIDENTIAL AND NOT TO BE RELEASED WITHOUT AUTHORIZATION [facility] [address] [place], [place] [address] Signed allowing only a very tiny wisps of contrast towards the midportion of the right ureter. This is consistent with this known right distal ureteral mass. Just proximal to the mass, the ureter dilates significantly, consistent with long-standing obstruction on that side. I was unable to pass a ureteral catheter beyond the tumor and into the proximal ureter to actually obtain a right retrograde pyelogram. 3. Diagnostic semi-rigid ureteroscopy was performed on the right side, which revealed the presence of a very long tumor that was completely obstructing the distal right ureter. The tumor appeared to be mostly smooth walled and vascular in nature. 4. I was able to get multiple bites of tissue from the right ureteral mass using the biopsy forceps as well as a Zero tip basket. These bits of tissue were placed in specimen cup and sent to pathology for evaluation. Ureteral washings were also obtained for pathology purposes. 5. A 400 micron Holmium laser fiber was then used to ablate the visible portion of the mass located in the distal portion of the right ureter. This was performed as a part of my attempt to be able to pass the distant ureteroscope into the mid and proximal right ureter. However, this was unsuccessful. 6. At the end of the procedure, a 22-[place] Islander two-way Rausch catheter was inserted into the patient's bladder and connected to gravity drainage for management of gross hematuria. DESCRIPTION OF PROCEDURE: After informed consent was obtained, the patient was taken back to the operating room. She was transferred from the [facility] to the operating room table, where MAC anesthesia was induced. She was placed in the dorsal lithotomy position and her genitalia prepped and draped in the standard sterile fashion. Using a 30-degree lens on a 22-1/2 Pitc[place] Islander introducer, rigid cystoscope was inserted through the urethra and into her bladder under direct visualization. Panendoscopic views of the bladder were then obtained including the lateral thakur, floor, dome, and trigone areas. Please see above findings. Attention was turned to the right ureteral orifice. A whistle-tip ureteral catheter was passed into the right ureteral orifice and a right ureteral washing was obtained. Once the washing was obtained, I then inserted a cone-tipped catheter and performed a right retrograde pyelogram. Please see above findings. I then attempted to pass a 0.035 Sensor wire beyond the tumor and into the right collecting system; however, this was unsuccessful. I then inserted a semi-rigid ureteroscope through the bladder and into the distal right ureter and performed a diagnostic right ureteroscopy. Please see above findings. I also took pictures of the tumor, which were then given to her son, David. The ureteral tumor was biopsied using both biopsy forceps as well as a Zero tip basket. I was able to get larger fragments of tissue using the Zero tip basket. The specimens were then placed in a specimen cup and sent to pathology for evaluation. I did not experience any significant bleeding from the tumor with removal of the specimens. Through the semi-rigid ureteroscope, I then advanced a 400 micron Holmium laser fiber and then ablated the tumor at a frequency of 8 Hz and one joule. I ablated a good deal of the distal aspect of the tumor in hopes to be able to pass my ureteroscope beyond the Electronically Signed By: SALONI TRUJILLO MD 06/28/18 0744 PATIENT NAME: HUNG PASTOR OPERATIVE REPORT DATE OF : 49 REPORT #: [id number] PHYSICIAN: SALONI TRUJILLO MD PCP: FOX SALVADOR MD REPORT IS CONFIDENTIAL AND NOT TO BE RELEASED WITHOUT AUTHORIZATION [facility] [address] [place], [place] [address] Signed tumor and into the proximal portion of the ureter. I was able to get my ureteroscope somewhat past the tumor. However, when I performed a retrograde pyelogram, all I was able to appreciate was a severely dilated proximal right ureter with no obvious entrance into the kidney. At this time, I also noted a significant amount of dark old blood coming from the right proximal ureter. I aspirated a good deal of this blood from the right ureter. Once I realized that there was no obvious or easy way to get proximal to the right ureteral mass, I decided to abort my attempts to pass a stent into the area. I removed the ureteroscope and then I inserted the cystoscope and irrigated the blood clots from the patient's bladder. The patient's bladder was then drained and then the cystoscope was removed. A 22-[place] Islander two-way Rausch catheter was then inserted into the patient's bladder and connected to gravity drainage. The procedure was then terminated. The patient tolerated the procedure well without any complication. She will now be transferred to the Postanesthesia Care Unit in stable condition. DISPOSITION: I discussed the details of today's procedure with the patient's family and answered all of their questions. She will maintain her Rausch catheter gravity drainage as she awakes in the PACU. Once her urine clears, her Rausch catheter can be removed prior to discharge. I discussed the results of what I saw during today's ureteroscopy with her son, David, and answered all of his questions. I recommended that she be seen by a urologic oncologist as soon as possible so that they can make a determination as far as her best course of clinical management given her multiple medical comorbidities. The patient's son verbalized understanding of this. The patient will be referred to Dr. Amauri Baez, in [place], for definitive management of what is most likely a right ureteral tumor. She is scheduled to see me in clinic in approximately 2 to 3 weeks for a postop checkup. By that time, hopefully she will have seen a urologic oncologist, who can then determine the best course of action, which will likely not be a nephroureterectomy given her multiple medical problems. Saloni Trujillo MD AR/MODL /[id number] Copies: Electronically Signed By: SALONI TRUJILLO MD 06/28/18 0744 PATIENT NAME: HUNG PASTOR OPERATIVE REPORT DATE OF : 49 REPORT #: [id number] PHYSICIAN: SALONI TRUJILLO MD PCP: FOX SALVADOR MD REPORT IS CONFIDENTIAL AND NOT TO BE RELEASED WITHOUT AUTHORIZATION [address] [address] Signed ~ Electronically Signed By: SALONI TRUJILLO MD 06/28/18 0744 PATIENT NAME: MARIOAGNESHUNG R OPERATIVE REPORT DATE OF : 49 REPORT #: [id number] PHYSICIAN: SALONI TRUJILLO MD PCP: FOX SALVADOR MD REPORT IS CONFIDENTIAL AND NOT TO BE RELEASED WITHOUT AUTHORIZATION
== END 2018-06-26 13:55 | disposition home or self-care (01) ==
LOC: OPS 07:50 → DS 07:50 → OPS 08:45
PROVIDERS: Urology
PROC: 0TB68ZX Excision of Right Ureter, Via Natural or Artificial Opening Endoscopic, Diagnostic (ICD-10-PCS; principal; 2018-06-26 08:45)
PROC: 0T568ZZ Destruction of Right Ureter, Via Natural or Artificial Opening Endoscopic (ICD-10-PCS; 2018-06-26 08:45)
PROC: BT1DZZZ Fluoroscopy of Right Kidney, Ureter and Bladder (ICD-10-PCS; 2018-06-26 08:45)
DX: C66.1 Malignant neoplasm of right ureter (principal); I25.10 Atherosclerotic heart disease of native coronary artery without angina pectoris; J44.9 Chronic obstructive pulmonary disease, unspecified; I10 Essential (primary) hypertension; E78.5 Hyperlipidemia, unspecified; J96.11 Chronic respiratory failure with hypoxia; Z95.5 Presence of coronary angioplasty implant and graft; Z88.5 Allergy status to narcotic agent; Z79.82 Long term (current) use of aspirin; Z79.899 Other long term (current) drug therapy
CPT/HCPCS: 00910; 74420; C2617; J0696; J1170; J2250; J2704; J3010; J7120; Q9967

== ENCOUNTER 2018-06-27 04:54 | Emergency (ER) | payer MEDICARE, OTHER ==
[~2018-06-27] VITALS: Ht 165.1 cm; Wt 81.9 kg
--- OUTSIDE RECORDS SUMMARY | ~2018-06-27 | XMS | Encounter Summary ---
Demographics + + + | Address | [address] | | | [address] | | | [place] [address] | + + + | Home Phone | | + + + | Preferred Language | Unknown | + + + | Marital Status | Single | + + + | Advent Affiliation | Unknown | + + + | Race | Unknown | + + + | Ethnic Group | Unknown | + + + Author + + + | Author | [employer] | + + + | Organization | [facility] | + + + | Address | Unknown | + + + | Phone | Unavailable | + + + Support + + +---------+ + | Name | Relationship | Address | Phone | + + +---------+ + | Mau Pastor | ECON | Unknown | | + + +---------+ + | Ely Larson | ECON | Unknown | | + + +---------+ + Care Team Providers + +------+ + | Care Travel Information Center Supervisor Name | Role | Phone | + +------+ + | Duyen Chavira MD | PCP | | + +------+ + Encounter Details +--------+ + + + + | Date | Type | Department | Care Team | Description | +--------+ + + + + | 05/29/ | Orders Only | [facility] | Delia Albert, | | | 2017 | | Cardiology [place] | DANIEL | | | | | [address] | | | | | | [address] | | | | | | [place] [address] | | | | | | [phone] | | | +--------+ + + + + Social History + + + +--------+------+ | Tobacco Use | Types | Packs/Day | Years | Date | | | | | Used | | + + + +--------+------+ | Current Every Day | Cigarettes | 1 | 55 | | | Smoker | | | | | + + + +--------+------+ + +---+---+---+ | Smokeless Tobacco: | | | | | Never Used | | | | + +---+---+---+ + + +---------+ + | Alcohol Use | Drinks/We | oz/Week | Comments | | | ek | | | + + +---------+ + | No | 0 | 0.0 | heavy drinker in past hx. | | | Standard | | | | | drinks or | | | | | | | | | | equivalen | | | | | t | | | + + +---------+ + + + + | Sex Assigned at | Date Recorded | | | | + + + | Not on file | | + + + as of this encounter Plan of Treatment +--------+---------+ + + + | Date | Type | Specialty | Care Team | Description | +--------+---------+ + + + | 08/14/ | Office | Cardiology | [facility] [place] | | | 2018 | Visit | | JOSEPHINE [address]illan [address] | | | | | | [address] | | | | | | [place] [address] | | | | | | [phone] | | | | | | | | +--------+---------+ + + + | 08/23/ | Office | Cardiology | Lidia Yañez, | | | 2018 | Visit | | MD Frandy Rao | | | | | | Dr [address], | | | | | | [place] [address] | | | | | | [phone] | | | | | | | | +--------+---------+ + + + as of this encounter Visit Diagnoses Not on filein this encounter"
--- OUTSIDE RECORDS SUMMARY | ~2018-06-27 | XMS | Encounter Summary ---
Demographics + + + | Address | [address] | | | [address] | | | [place] [address] | + + + | Home Phone | | + + + | Preferred Language | Unknown | + + + | Marital Status | Single | + + + | Sikhism Affiliation | Unknown | + + + | Race | Unknown | + + + | Ethnic Group | Unknown | + + + Author + + + | Author | [employer] [facility] | + + + | Organization | [facility] | + + + | Address [...] Team Providers + +------+ + | Care Aircraft Rigging And Controls Mechanic Name | Role | Phone | + +------+ + | Duyen Chavira MD | PCP | | + +------+ + Reason for Visit +--------+ + | Reason | Comments | +--------+ + | Other | [facility] PCP Notes 05/15/18 | +--------+ + Encounter Details +--------+ + + + + | Date | Type | Department | Care Team | Description | +--------+ + + + + | 05/29/ | Tracyati | [facility] | Delia Albert, | Other ([place] | | 2018 | on Only | Cardiology [place] | [place] | PCP Notes 05/15/18 ) | | | | [address] | | | | | | [address] | | | | | | [place] [address] | | | | | | [phone] | | | +--------+ + + + [...] | 08/14/ | Office | Cardiology | [facility] | | | 2017 | Visit | | JOSEPHINE Santillan | | | | | | [address] | | | | | | [place] [address] | | | | | | [phone] | | | | | | | | +--------+---------+ + + + | 08/23/ | Office | Cardiology | Lidia Yañez, | | | 2017 | Visit | | MD Frandy Rao | | | | | | Dr Haq, | | | | | | [place] [address] | | | | | | [phone] | | | | | | | | +--------+---------+ + + + as of this encounter Visit Diagnoses Not on filein this encounter"
--- OUTSIDE RECORDS SUMMARY | ~2018-06-27 | XMS | Encounter Summary ---
Demographics + + + | Address | [address] | | | [address] | | | [place] [address] | + + + | Home Phone | | + + + | Preferred Language | Unknown | + + + | Marital Status | Single | + + + | Rastafarian Affiliation | Unknown | + + + | Race | Unknown | + + + | Ethnic Group | Unknown | + + + Author + + + | Author | [employer] | + + + | Organization | [facility] | + + + | Address [...] Team Providers + +------+ + | Care Buyer Agent Name | Role | Phone | + +------+ + | Duyen Chavira MD | PCP | | + +------+ + Encounter Details +--------+ + + + + | Date | Type | Department | Care Team | Description | +--------+ + + + + | 06/16/ | Telephone | [facility] | Delia Albert, | | | 2017 | | Cardiology [facility] [place] | | | | | [address] [facility] [address] | | | | | | [facility] [address] | | | | | | [place] [address] | | | | | | [phone] | | | +--------+ + + + [...] | | | | | [place] [address] | | | | | | [phone] | | | | | | | | +--------+---------+ + + + | 08/23/ | Office | Cardiology | Lidia Yañez, | | | 2018 | Visit | | MD Frandy Rao | | | | | | Dr [address], | | | | | | [place] [address] | | | | | | [phone] | | | | | | | | +--------+---------+ + + + as of this encounter Visit Diagnoses Not on filein this encounter"
--- OUTSIDE RECORDS SUMMARY | ~2018-06-27 | XMS | Encounter Summary ---
Demographics + + + | Address | [address] | | | [address] | | | [place] [address] | + + + | Home Phone | | + + + | Preferred Language | Unknown | + + + | Marital Status | Single | + + + | Jainism Affiliation | Unknown | + + + | Race | Unknown | + + + | Ethnic Group | Unknown | + + + Author + + + | Author | [employer] | + + + | Organization | [facility] | + + + | Address [...] Team Providers + +------+ + | Care Psychologist Counseling Name | Role | Phone | + +------+ + | Duyen Chavira MD | PCP | | + +------+ + Reason for Visit +--------+ + | Reason | Comments | +--------+ + | Other | [facility] PCP Notes 05/23/18 | +--------+ + Encounter Details +--------+ + + + + | Date | Type | Department | Care Team | Description | +--------+ + + + + | 05/29/ | Documentati | SHEILA [facility] | Delia Albert, | Other ([facility] | | 2018 | on Only | Cardiology [place] | [place] | PCP Notes 05/23/18) | | | | [address] | | | | | | [address] | | | | | | [place] [address] | | | | | | [phone] | | | +--------+ + + + [...] Cardiology | Yelena [facility] | | | 2017 | Visit | | JOSEPHINE Santillan | | | | | | [address] | | | | | | [place] [address] | | | | | | [phone] | | | | | | | | +--------+---------+ + + + | 08/23/ | Office | Cardiology | Lidia Yañez, | | | 2017 | Visit | | MD Frandy Rao | | | | | | Dr [address]q, | | | | | | [place] [address] | | | | | | [phone] | | | | | | | | +--------+---------+ + + + as of this encounter Visit Diagnoses Not on filein this encounter"
--- OUTSIDE RECORDS SUMMARY | ~2018-06-27 | XMS | Encounter Summary ---
Demographics + + + | Address | [id number] | | | [address] | | | [place] [address] | + + + | Home Phone | | + + + | Preferred Language | Unknown | + + + | Marital Status | Single | + + + | Sikhism Affiliation | Unknown | + + + | Race | Unknown | + + + | Ethnic Group | Unknown | + + + Author + + + | Author | [employer] | + + + | Organization | [facility] | + + + | Address [...] Team Providers + +------+ + | Care Lead Housekeeper Name | Role | Phone | + +------+ + | Duyen Chavira MD | PCP | | + +------+ + Reason for Visit + + + | Reason | Comments | + + + | Follow-up | Annual & Clearance for biopsy | + + + Encounter Details +--------+---------+ + + + | Date | Type | Department | Care Team | Description | +--------+---------+ + + + | 05/29/ | Office | [facility] | Yelena Madrid | Coronary artery | | 2018 | Visit | Cardiology [place] | JOSEPHINE [address] | disease involving | | | | [address] | Jalen [address]wood F | kashia coronary | | | | [facility] [address] | [place] [address] | artery of kashia | | | | [place] [address] | [phone] | heart without angina | | | | [phone] | | pectoris (Primary | | | | | | Dx); S/P PTCA | | | | | | (percutaneous | | | | | | transluminal | | | | | | coronary | | | | | | angioplasty); S/P | | | | | | drug eluting | | | | | | coronary stent | | | | | | placement; Mild | | | | | | calcific aortic | | | | | | stenosis; Essential | | | | | | hypertension; Mixed | | | | | | hyperlipidemia; | | | | | | Tobacco abuse; | | | | | | Chronic obstructive | | | | | | pulmonary disease | | | | | | with acute | | | | | | exacerbation ([facility]); | | | | | | Risk factors for | | | | | | obstructive sleep | | | | | | apnea | +--------+---------+ + + + Social History + + [...] + + + as of this encounter Last Filed Vital Signs + + + + | Vital Sign | Reading | Time Taken | + + + + | Blood Pressure | 116/62 | 05/29/2018 11:12 AM PDT | + + + + | Pulse | 83 | 05/29/2018 11:12 AM PDT | + + + + | Temperature | - | - | + + + + | Respiratory Rate | 18 | 05/29/2018 11:12 AM PDT | + + + + | Oxygen Saturation | 94% | 05/29/2018 11:12 AM PDT | + + + + | Inhaled Oxygen | - | - | | Concentration | | | + + + + | Weight | 81.4 kg (179 lb 8 | 05/29/2018 11:12 AM PDT | | | oz) | | + + + + | Height | 162.6 cm (5' 4") | 05/29/2018 11:12 AM PDT | + + + + | Body Mass Index | 30.81 | 05/29/2018 11:12 AM PDT | + + + + in this encounter Instructions Patient Instructions - Yelena MadridJOSEPHINE - 05/29/2018 11:00 AM PDTI made no change s to medications today Keep working on quitting smoking I have ordered Echo to be done to see how your aortic stenosis and pulmonary hypertension a re, and for pre operative exam See me back in 3-4 weeks in this encounter Progress Notes [facility] SantillanJOSEPHINE - 05/29/2018 11:00 AM PDTFormatting of this note may be differen t from the original. Date of visit: 05/30/2018 Primary Care Physician: Duyen Chavira CHIEF COMPLAINT: Chief Complaint Patient presents with Follow-up Annual & Clearance for biopsy HISTORY OF PRESENT ILLNESS: Ms. Sveta Pastor is a 72 yr old woman who is here today as long overdue for follow-up, an d also needs cardiac risk evaluation for biopsy for ureteral mass. He is accompanied today by her son who contributed to history, which is helpful as her memory is quite poor She has a history of three-vessel coronary artery disease with stenting in 2009, and last catheterization in 2009, mild aortic stenosis, severe pulmonary hypertension, heart failure with preserved EF and right sided heart failure hypertension, hyperlipidemia, chronic hypona tremia ,and COPD and is a current smoker. She also has a strong family history for heart disease as her mother at age 68 of hea rt disease congestive heart failure and also had COPD. I saw her last in January 2017when I had started her on hydralazine for fluid overload, and she had never followed up as requested Her previous testing and procedures are detailed below . Her echo performed in February 2017 had shown a normal EF of 60-65 percent, mild diastolic dys function, moderate RV failure, enlarged atrium, mild calcific aortic stenosis. mild mitral a nd tricuspid regurgitation, and severe pulmonary hypertension. Her EKG performed in the clinic today shows normal sinus rhythm with sinus arrhythmia at 83 bpm Since I saw her last, she has been moved to a care facility , [facility], as she was n o longer able to care for herself , and had not been taking her medications . I reviewed the medication and vital sign records from there today . Her son and Dr. Chavira's reports she hospitalized with decompensation of chronic diastol ic heart failure 05/31/2017-06/16/2017 secondary to not taking her medications, and subsequent ly moved to [facility], and established with Dr. Chavira as her PCP. I reviewed Dr. Chavira 's clinic notes today , as well as recent ER notes from , from April when she was seen for hematuria and pain and CT of her abdomen and pelvis not ed severe right hydro-ureter nephrosis and high density material within the right ureter and urinary bladder consistent with hemorrhage and clot also suspicious for underlying malignan cy. CT of abdomen and pelvis done with contrast 05/18/2018 again reported severe right hydrou reter nephrosis down to the level of the trigone with an 8 mm right distal ureteral mass She was referred to Urologist Dr. Tricia Velez who wishes to perform right ureteroscopy with biopsy of her right ureteral but biopsy on Jun 26, possible stent, and aspirin to be held starting June 17. She reports ongoing dyspnea with exertion and continues to use continuous oxygen, and den ies any chest pain, palpitations, dizziness, or syncope. He also denies any signs or sympto ms of stroke or transient ischemic attack but reports ongoing poor memory. 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 Colin . She continues to smoke half a pack a day and is not interested in quitting. She has also been referred for sleep apnea evaluation in [place] REVIEW OF SYSTEMS: Negative except for pertinent items noted in HPI. Constitutional: Weight Down 82 lbs sine 01/2017 ( wt 261 lbs) .Denies fatigue or unexplain ed weight loss. Appetite is good. 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 Colin ( 11/2017) Denies nosebleeds. Denies hearin g problems. Denies dysphagia Eyes: Central retinal vein occlusion left eye., treated with injections. Denies other visua l disturbance or double vision. Denies history of cataracts or glaucoma Respiratory: History COPD, on continuous oxygen at 2-to 4 L , sees Dr. Diaz in [facility] positive for cough and shortness of breath.Denies hemoptysis . Cardiovascular: Reports mild lower extremity edema, much improved, denies chest pain, palpi tations Gastrointestinal: history of GERD. Denies for nausea, vomiting, abdominal pain and blood in stool. Genitourinary: Negative for hematuria. Musculoskeletal:Hx back and severe generalized joint pain. Arthritic TMJ Skin: Reports ongoing skin reddening and rash to lower legs Neurological: Reports ongoing poor memory Denies history of stroke/Transient ischemic .att ack Denies dizziness, syncope and numbness. Denies focal motor or sensory deficits Hematological: Does not bruise/bleed easily. history of cancer: Newly diagnosed right ur eteral mass Endocrine: Denies diabetes or thyroid disease. Denies excessive thirst or hunger. Psychiatric/Behavioral: mild situational depression. Vaccines: Current on 2017 flu vaccine. Current on pneumonia vaccine. Habits: Smoker of half a pack a day, has smoked 1ppd x 55 years. Denies EtOH use. Resid ent of [facility] in [place]. Drinks 1-2 servings of caffeine daily. Denies illicit d rug use. Son is her spokesperson and comes to her appointment Outpatient Medications Prior to Visit Medication Sig Dispense Refill acetaminophen (TYLENOL) 500 MG tablet Take 500 mg by mouth every 6 (six) hours as neede d for Pain. albuterol (VENTOLIN HFA) 108 (90 BASE) MCG/ACT inhaler Inhale 2 puffs into the lungs ev yarelis 4 (four) hours as needed. Calcium Carbonate Antacid (TUMS PO) Take 200 mg by mouth daily. DULoxetine (CYMBALTA) 30 MG capsule Take 1 capsule by mouth daily. furosemide (LASIX) 20 MG tablet Take 1 tablet by mouth 2 (two) times daily. gemfibrozil (LOPID) 600 MG tablet Take 1 tablet by mouth 2 (two) times daily. ipratropium-albuterol (DUO-NEB) 0.5-2.5 mg/3mL 3 mLs. loperamide (IMODIUM) 2 MG capsule Take 2 mg by mouth 4 (four) times daily as needed for Diarrhea. metoprolol (TOPROL-XL) 25 MG 24 hr tablet Take 1 tablet by mouth daily. nitroGLYCERIN (NITROSTAT) 0.[address] 1 tablet under the tongue every 5 (fiv e) minutes as needed. 25 tablet 11 potassium chloride SA (K-DUR,KLOR-CON) 20 MEQ tablet Take 1 tablet by mouth daily. pravastatin (PRAVACHOL) 80 MG tablet Take 1 tablet by mouth daily. SYMBICORT 160-4.5 MCG/ACT inhaler Inhale 2 puffs into the lungs 2 (two) times daily. VOLTAREN 1 % Apply 1 strip topically as needed. amLODIPine (NORVASC) 5 MG tablet Take 1 tablet by mouth daily. (Patient not taking: Rep orted on 05/29/2018) 90 tablet 3 aspirin 325 MG tablet Take 325 mg by mouth daily. bevacizumab (AVASTIN) 100 MG/4ML injection Inject 10 mg/kg into the vein every 30 (thir ty) days. Left eye carvedilol (COREG) 25 MG tablet Take 1 tablet by mouth 2 (two) times daily with meals. (Patient not taking: Reported on 05/29/2018) 180 tablet 3 clopidogrel (PLAVIX) 75 MG tablet take 1 tablet by mouth once daily (Patient not taking : Reported on 05/29/2018) 90 tablet 3 Dextromethorphan-Guaifenesin (MUCINEX DM MAXIMUM STRENGTH) 60-1200 MG per 12 hr tablet Take 1 tablet by mouth as needed. erythromycin (ROMYCIN) ophthalmic ointment Place 5 mg into both eyes nightly. Thin ribb on to affected eye four times daily for 7 days furosemide (LASIX) 40 MG tablet Take 1 tablet by mouth 2 (two) times daily. 60 tablet 2 guaiFENesin (MUCINEX) 600 MG 12 hr tablet Take 600 mg by mouth 2 (two) times daily. hydrALAZINE (APRESOLINE) 25 MG tablet Take 1 tablet by mouth 3 (three) times daily. 90 tablet 3 losartan (COZAAR) 50 MG tablet Take 1 tablet by mouth daily. (Patient not taking: Jaki debby on 05/29/2018) 30 tablet 2 Menthol-Methyl Salicylate (TIGER BALM LINIMENT EX) Apply topically as needed. For fing er nodules Nutritional Supplements (ENSURE ACTIVE) LIQD Take by mouth as needed. pravastatin (PRAVACHOL) 40 MG tablet Take 1 tablet by mouth nightly. (Patient not fernando parks: Reported on 05/29/2018) 90 tablet 3 tiotropium (SPIRIVA RESPIMAT) 2.5 MCG/ACT inhaler Inhale 2 puffs into the lungs. No facility-administered medications prior to visit. PHYSICAL EXAM: Wt Readings from Last 3 Encounters: 05/29/18 81.4 kg (179 lb 8 oz) 01/20/17 118.4 kg (261 lb) 12/20/16 116.8 kg (257 lb 6.4 oz) Temp Readings from Last 3 Encounters: No data found for Temp BP Readings from Last 3 Encounters: 05/29/18 116/62 01/20/17 118/68 12/20/16 148/68 Pulse Readings from Last 3 Encounters: 05/29/18 83 01/20/17 70 12/20/16 84 GENERAL: Thin, pale woman, in no distress. Appears approximately stated age.Examined in wheelchair, unable to get on exam table HEENT: Normocephalic, atraumatic. EYES: PERRL, EOM normal. MOUTH: Oral mucosae moist, dentition poor, no lesions noted NECK: No JVD, lymphadenopathy, thyromegaly, bruits. Carotid pulses are 2+ bilateral ly LUNGS: On continuous oxygen, Clear bilaterally, with diminished air entry to bases with n o rales, rhonchi or wheezing noted, respirations unlabored HEART: Nondisplaced PMI, regular rate and rhythm, S1, S2 normal. No murmurs, rubs or ga llops noted. ABDOMEN: Soft, nontender, no organomegaly, masses or bruits. Bowel sounds are normal in all 4 quadrants. The abdominal aortic pulsation is not palpable. EXTREMITIES:trace edema bilateral lower legs ., Lower legs have reddened skin Radial pu lses 1+ bilaterally. DP and PT pulses are 1+ bilaterally. Mild clubbing. SKIN: Warm and dry, capillary refill is normal, no lesions. NEUROLOGIC: Awake, alert and oriented x 3. No focal motor or sensory deficits. PSYCHIATRIC: Appropriate, affect appears normal DATA: Blood tests: Lab Results Component Value Date WBC 5.9 04/21/2015 RBC 5.66 (A) 04/21/2015 HGB 16.5 (A) 04/21/2015 HCT 50.6 (A) 04/21/2015 PLT 294 04/21/2015 Lab Results Component Value Date NA 138 04/21/2015 K 4.6 04/21/2015 K 4.1 02/23/2010 CL 95 04/21/2015 CO2 31 04/21/2015 ANIONGAP 16.6 04/21/2015 GLUF 104 (A) 04/21/2015 BUN 9 04/21/2015 CREATININE 0.66 (A) 04/21/2015 BCR 13.6 04/21/2015 CA 9.9 04/21/2015 EGFR 89 04/21/2015 Lab Results Component Value Date CHOL 264 (A) 10/28/2014 TRIG 555 (A) 10/28/2014 LDL 66 05/21/2014 GLUF 104 (A) 04/21/2015 HGBA1C 6.3 12/11/2014 Lab Results Component Value Date CKTOTAL 69 04/21/2015 TSH 0.341 04/21/2015 No results found for: METF, NMETFX, TFNMFX, [id number], [id number], TOTEPI CARDIAC IMAGING/PROCEDURES Hx PCI/stent: 03/23/2010:prox LAD (3.5*12mm Promus EL), RCA (3.5*28mm, 3.5*18mm Promus EL) 02/23/2010: prox LCx (2.75*12mm Promus EL), distal L Cx (2.5*12mm Promus EL). Last Cath, 03/23/2010: LCx stents patent, LAD and RCA stented Last stress test, 01/16/2015: Lexiscan, breast/diaphragmatic attenuation, LVEF 55%.. ECHO Last Echo: 02/18/2017:( [facility]):TDS: EF 60-65 percent. LV normal in size and wall thickness. N o regional wall motion abnormalities, septal flattening in diastole and systole, consistent with right ventricular pressure and volume overload. Mild diastolic dysfunction, grade 1 mi ld RVE, moderately impaired RV systolic function. Moderate left atrial enlargement, marked MARGO. Aortic valve trileaflet and moderately thickened with mild aortic stenosis peak/mean p ressure gradient of 27.55mmHg / 13.49mmHg, the aortic valve area by continuity equation is 1 .8cm. Mild MR, mild to moderate MAC. Mild TR. Severe pulmonary hypertension, RVSP 7 1-76 mmHg area did mild MS. IVC dilated >2.5 cm, CVP 15-20. Aortic root, ascending aorta, and aortic arch are normal. No mass, no clot Echo, 02/23/2010: TDS, LVEF grossly NML, no significant valvular stenosis or regurgitation. NON CARDIAC IMAGING/PROCEDURES CXR, 08/25/2016: Questionable mild CHF, superimposed up on diffuse interstitial disease. CT Abd/Pelvis w/ contrast 05/18/2018:( [facility]) Severe right hydroureter nephrosis down to the l evel of the trigone, due to an 8 mm right distal ureteral mass. Urothelial thickening assoc iated with this area. Multiple punctuate calculi present in both kidneys. There is no cont rast noted in delayed images on the right even after 60 minutes PFT: 11/25/2017 ([facility]). FEV1 59 % of predicted and FEF 25-75 % 33 %of predicted, RV/TLC 135% of predicted, DLCO/VA 41 p% of predicted EKG/EVENT MONITORS ,EK02/19/2016: Sinus rhythm with sinus arrhythmia: Rate 69 bpm, MS 180 ms, QRS 98 ms, QTC 450 ms. Nonspecific T-wave abnormalities in anterior leads EK: ER, [place]'s: Sinus tachycardia rate 10 6 bpm, MS 170 ms, QRS 90 ms, QTC 479. PAC, RAD, PRWP, no acute changes. EK12/20/2016: Sinus rhythm, PRWP, rate 79 bpm, MS 198 ms, QRS 94ms,QTC 463 ms personally r eviewed by me EK05/29/2018: Normal sinus rhythm with sinus arrhythmia. Low voltage QRS in limb leads. Rate 83 bpm, MS 174 ms, QRS 90 ms, QTC 470 ms ,Personally reviewed by me, similar morpholog y to previous EKG performed in December 2016, except for MS interval is shortened and now has s inus arrhythmia LABS: Labs: 08/11: Cholesterol 186, triglycerides 202, HDL 44, LDL 101, CMP: Sodium 133, potassium 4.7, chloride 94, glucose 125, BUN 7, creatinine 0.64, GFR 92, AST 16, ALT 13, alk phos 93, total bilirubin 0.5Lab, 09/06/2016: Na: 131, K: 4.2, BUN/Cr: 11/0.5, glu: 84 Labs: 01/05: Sodium 126, potassium 4.8, chloride 86, CO2 29, glucose 135, BUN 9, creatinine 0.59, GFR 101, AST 14, ALT 11, alk phos 88, total bilirubin 0.6 Labs: 11/14/2017: Lipids: Total cholesterol 197, LDL 119, HDL 48, triglycerides 151, A1c 6 Labs: 04/30/2018: CMP: Sodium 131, potassium 4.2, chloride 95, glucose 125, BUN 11, creatin ine 0.88, AST 15, ALT 8, alk phos 151, total bilirubin 0.5, GFR 64, albumin 4.4. Lipase: 10 0. CBC: WBC 9.3, RBC 4.99, hemoglobin 15.1, hematocrit 45, platelets 441, INR 0.9 ASSESSMENT & PLAN: She was here today as overdue for follow-up, and needs cardiac risk evaluation for planned biopsy of her right ureteral mass Since I saw her last, her echo performed in Feb, 2017 had shown normal EF, new mild calcif ic aortic stenosis and severe pulmonary hypertension,and moderate right-sided heart failure . Her EKG performed in the clinic today shows normal sinus rhythm with new sinus arrhythmia , otherwise similar morphology to previous EKG with no ischemic changes. Her medications have changed considerably since I saw her last but her blood pressure and heart rate are well controlled on current medication, and her last lipid panel performed in October had shown a mildly elevated LDL, but otherwise seemed well controlled on Pravachol, and her dose been increased to 80 mg since I saw her last, and now on gemfibrozil I made no changes to medications today, and for her cardiac medications Pravachol 80 mg, m etoprolol XL 25 mg daily, aspirin 81 mg daily, which will be held prior to her biopsy, furos emide 20 mg bid,and potassium 20 mEq daily. I have encouraged her to quit smoking, but she is not interested . I discussed with her today that I would need to order an Echo to evaluate her aortic stenos is and EF, and I am reluctant to order a stress test with aortic stenosis. It is not clear how exactly her procedure is being performed, as she would be a considera ble anesthetic risk with her severe COPD, and I have placed a call to Dr. Chavira to discuss t his further, but he is out of the office today. Her weight is down almost 80 pounds since I saw her last, which may be secondary to her ar thritic TMJ, but may also be secondary to malignancy. I will see her back June 26 to follow-up on the results of her Echo, and she will es tablish care with Dr. Mayer August 23, which had been my plan for her when I had see n her in January 2017 1. Coronary artery disease involving kashia coronary artery of kashia heart without angina pectoris 2. S/P PTCA (percutaneous transluminal coronary angioplasty) 3. S/P drug eluting coronary stent placement 4. Mild calcific aortic stenosis 5. Essential hypertension 6. Mixed hyperlipidemia 7. Tobacco abuse 8. Chronic obstructive pulmonary disease with acute exacerbation (HCC) 9. Risk factors for obstructive sleep apnea 10. Moderate to severe pulmonary hypertension (HCC) 11. Dyspnea on exertion 12. Pre-operative cardiovascular examination 13. Ureteral mass Orders Placed This Encounter Procedures Electrocardiogram, 12-lead Echo cardiac adult complete The following portions of the patient's history were personally reviewed by me and updated as appropriate: EKG tracings, other specialty provider and PCP notes, , previous and current cardiac testin g and procedure reports and data, any hospital admission or discharge records, any ER recor ds Allergies, current medications.labs Family history, past medical history, past social history, past surgical history. Problem list. JOSEPHINE Chaparro [facility] Cardiology 05/30/2018in this encounter Plan of Treatment +--------+---------+ + + + | Date | Type | Specialty | Care Team | Description | +--------+---------+ + + + | 08/14/ | Office | Cardiology | Yelena Madrid | | | 2017 | Visit | | JOSEPHINE [address]an [address] | | | | | | [address] | | | | | | [place] [address] | | | | | | [phone] | | | | | | | | +--------+---------+ + + + | 08/23/ | Office | Cardiology | Lidia Yañez, | | | 2017 | Visit | | [facility] | | | | | | [address], | | | | | | [place] [address] | | | | | | [phone] | | | | | | | | +--------+---------+ + + + as of this encounter Procedures + +--------+ + + + | Procedure Name | Priori | Date/Time | Associated Diagnosis | Comments | | | ty | | | | + +--------+ + + + | EKG STANDARD 12 LEAD | Routin | 05/29/2018 | Coronary artery | Results for this | | | e | 11:20 AM | disease involving | procedure are in the | | | | PDT | kashia coronary | results section. | | | | | artery of kashia | | | | | | heart without angina | | | | | | pectoris S/P PTCA | | | | | | (percutaneous | | | | | | transluminal | | | | | | coronary | | | | | | angioplasty) S/P | | | | | | drug eluting | | | | | | coronary stent | | | | | | placement Essential | | | | | | hypertension Mixed | | | | | | hyperlipidemia | | | | | | Tobacco abuse | | | | | | Chronic obstructive | | | | | | pulmonary disease | | | | | | with acute | | | | | | exacerbation (HCC) | | + +--------+ + + + in this encounter Results ECHO outside interpretation standard (06/07/2018 1:28 PM) + + + | Impressions | Performed At | + + + | 1. Overall left ventricular systolic function is normal with, an EF | [facility] | | between 55 - 60 %. | RADIOLOGY | + + + + + + | Narrative | Performed At | + + + | Patient Name: SVETA PASTOR Date of : 1945 | [facility] | | Performing Physician: SPENSER CARBAJAL | RADIOLOGY | | MD | | | INDICATIONS , PULM HTN CONCLUSIONS | | | 1. Overall left ventricular systolic function is normal with, an EF | | | between 55 - 60 %. FINDINGS -------- ECG rhythm: Sinus rhythm. | | | Study: A 2-dimensional transthoracic echocardiogram with m-mode, | | | spectral and color flow Doppler was perfomed. Study: This was a | | | technically adequate study. Left Ventricle: Overall left ventricular | | | systolic function is normal with, an EF between 55 - 60 %. Left | | | Ventricle: The left ventricle cavity size is normal. Left Ventricle: | | | There is mild concentric left ventricular hypertrophy. Left | | | Ventricle: The diastolic filling pattern indicates impaired relaxation | | | consistent with mild dysfunction (Grade I). Left Ventricle: Both | | | the mean atrial pressure as well as the LV end diastolic pressure is | | | elevated. Right Ventricle: The right ventricle is normal in size and | | | function. Left Atrium: The left atrium is mildly dilated. Right | | | Atrium: The right atrium is normal in size. Aortic Valve: The aortic | | | valve is mildly calcified. Aortic Valve: There is no evidence of | | | aortic regurgitation. Aortic Valve: The aortic valve area by | | | continuity equation is 2.0cm Aortic Valve: Peak/mean gradient | | | across the valve is 8.30mmHg/4.42mmHg. Aortic Valve: The aortic | | | valve appears to be trileaflet. Mitral Valve: Mild mitral | | | regurgitation is present. Mitral Valve: Mild mitral annular | | | calcification present. Tricuspid Valve: The tricuspid valve appears | | | structurally normal. Tricuspid Valve: Mild tricuspid regurgitation | | | present. Tricuspid Valve: The right ventricular systolic pressure | | | (pulmonary artery systolic pressure), as measured by Doppler, is | | | 34.88mmHg. Pulmonic Valve: Pulmonic valve appears structurally | | | normal. Pulmonic Valve: Trace pulmonic regurgitation. | | | Pericardium: There is no pericardial effusion. IVC/Hepatic Veins: The | | | inferior vena cava is normal in size and collapses > 50 % with sniff, | | | indicating normal central venous pressures. Aorta: The aortic root, | | | ascending aorta and aortic arch are normal. Mass: No mass visualized | | | Thrombus: No clot visualized Thrombus: No vegetation visualized. | | | Septum: No ASD observed. Septum: No VSD observed. MEASUREMENTS | | | Ao sinus: 3.12 cm IVC: 1.36 cm LA Diam: | | | 4.08 cm EDV(Teich): 72.65 ml IVSd: 1.02 cm LVIDd: 4.06 | | | cm LVPWd: 0.85 cm LVOT Area: 3.62 cm2 LVOT Diam: 2.15 | | | cm %FS: 23.53 % EF(Teich): 47.53 % ESV(Teich): 38.12 ml | | | LVIDs: 3.10 cm SV(Teich): 34.53 ml RVIDd: 2.86 cm | | | LVEF MOD A2C: 66.55 % SV MOD A2C: 48.54 ml LVEF MOD A4C: | | | 62.37 % SV MOD A4C: 65.41 ml EF Biplane: 63.91 % LVEDV MOD | | | BP: 90.16 ml LVESV MOD BP: 32.53 ml LVEDV MOD A2C: | | | 72.94 ml LVLd A2C: 7.62 cm LVEDV MOD A4C: 104.87 ml LVLd | | | A4C: 8.13 cm LVESV MOD A2C: 24.39 ml LVLs A2C: 6.02 cm | | | LVESV MOD A4C: 39.45 ml LVLs A4C: 6.72 cm LAESV(A-L): | | | 66.19 ml LAESV Index (A-L): 35.40 ml/m2 LAAs A2C: 19.53 cm2 | | | LAESV A-L A2C: 56.96 ml LALs A2C: 5.69 cm LAAs A4C: | | | 22.73 cm2 LAESV A-L A4C: 64.56 ml LALs A4C: 6.79 cm | | | RAAs: 15.32 cm2 RAESV A-L: 40.10 ml RAESV MOD: 36.59 ml | | | RALs: 4.97 cm TAPSE: 1.55 cm AV maxP.30 mmHg AV | | | meanP.42 mmHg AV Vmax: 1.44 m/s AV Vmean: 0.96 m/s | | | AV VTI: 23.77 cm ANTONIO Vmax: 1.71 cm2 ANTONIO (VTI): 2.01 cm2 | | | AVAI (Vmax): 0.00 cm2/m2 AVAI (VTI): 0.00 cm2/m2 LVOT | | | maxP.85 mmHg LVOT meanP.02 mmHg LVSI Dopp: 25.56 | | | ml/m2 LVSV Dopp: 47.80 ml LVOT Vmax: 0.68 m/s LVOT | | | Vmean: 0.47 m/s LVOT VTI: 13.17 cm MV A Eugene: 0.93 m/s | | | MV Dec Howard: 2.44 m/s2 MV DecT: 259.68 ms MV E Eugene: | | | 0.63 m/s MV E/A Ratio: 0.67 MV PHT: 75.30 ms MVA By | | | PHT: 2.92 cm2 Septal e': 0.03 m/s Septal E/e': 19.92 | | | Lateral e': 0.04 m/s Lateral E/e': 15.46 RAP: 5 mmHg | | | RVSP: 34.88 mmHg TR maxP.88 mmHg TR Vmax: 2.73 m/s | | | Sustainability Manager: JUNIOR Authenticated by: SPENSER CARBAJAL MD | | | Report Date/Time: -- [id number]:[id number] | | + + + + + | Procedure Note | + + | [place], Rad Results In - 06/08/2018 4:26 PM PDT Patient Name: Kodi PASTOR of | | : 1945ccession: [id number] Physician: SPENSER CARBAJAL MD | | INDICATIONS , | | PULM HTNCONCLUSIONS 1. Overall left ventricular systolic function is normal | | with, an EF between 55 - 60 %.FINDINGS--------ECG rhythm: Sinus rhythm.Study: A | | 2-dimensional transthoracic echocardiogram with m-mode, spectral and color flow Doppler | | was perfomed. Study: This was a technically adequate study.Left Ventricle: Overall left | | ventricular systolic function is normal with, an EF between 55 - 60 %. Left Ventricle: | | The left ventricle cavity size is normal. Left Ventricle: There is mild concentric left | | ventricular hypertrophy. Left Ventricle: The diastolic filling pattern indicates | | impaired relaxation consistent with mild dysfunction (Grade I). Left Ventricle: Both the | | mean atrial pressure as well as the LV end diastolic pressure is elevated.Right | | Ventricle: The right ventricle is normal in size and function.Left Atrium: The left | | atrium is mildly dilated.Right Atrium: The right atrium is normal in size. Aortic Valve: | | The aortic valve is mildly calcified. Aortic Valve: There is no evidence of aortic | | regurgitation. Aortic Valve: The aortic valve area by continuity equation is 2.0cm | | Aortic Valve: Peak/mean gradient across the valve is 8.30mmHg/4.42mmHg. Aortic Valve: | | The aortic valve appears to be trileaflet.Mitral Valve: Mild mitral regurgitation is | | present. Mitral Valve: Mild mitral annular calcification present.Tricuspid Valve: The | | tricuspid valve appears structurally normal. Tricuspid Valve: Mild tricuspid | | regurgitation present. Tricuspid Valve: The right ventricular systolic pressure | | (pulmonary artery systolic pressure), as measured by Doppler, is 34.88mmHg.Pulmonic | | Valve: Pulmonic valve appears structurally normal. Pulmonic Valve: Trace pulmonic | | regurgitation.Pericardium: There is no pericardial effusion.IVC/Hepatic Veins: The | | inferior vena cava is normal in size and collapses > 50 % with sniff, indicating normal | | central venous pressures.Aorta: The aortic root, ascending aorta and aortic arch are | | normal.Mass: No mass visualizedThrombus: No clot visualized Thrombus: No vegetation | | visualized.Septum: No ASD observed. Septum: No VSD observed.MEASUREMENTS Ao | | sinus: 3.12 cmIVC: 1.36 cmLA Diam: 4.08 cmEDV(Teich): 72.65 mlIVSd: 1.02 | | cmLVIDd: 4.06 cmLVPWd: 0.85 cmLVOT Area: 3.62 [id number] Diam: 2.15 cm%FS: 23.53 | | %EF(Teich): 47.53 %ESV(Teich): 38.12 mlLVIDs: 3.10 cmSV(Teich): 34.53 mlRVIDd: | | 2.86 cmLVEF MOD A2C: 66.55 %SV MOD A2C: 48.54 mlLVEF MOD A4C: 62.37 %SV MOD A4C: | | 65.41 mlEF Biplane: 63.91 %LVEDV MOD BP: 90.16 mlLVESV MOD BP: 32.53 mlLVEDV MOD | | A2C: 72.94 mlLVLd A2C: 7.62 cmLVEDV MOD A4C: 104.87 mlLVLd A4C: 8.13 cmLVESV | | MOD A2C: 24.39 mlLVLs A2C: 6.02 cmLVESV MOD A4C: 39.45 mlLVLs A4C: 6.72 | | cmLAESV(A-L): 66.19 mlLAESV Index (A-L): 35.40 ml/m2LAAs A2C: 19.53 [id number] A-L | | A2C: 56.96 mlLALs A2C: 5.69 cmLAAs A4C: 22.73 [id number] A-L A4C: 64.56 mlLALs | | A4C: 6.79 cmRAAs: 15.32 [id number] A-L: 40.10 mlRAESV MOD: 36.59 mlRALs: 4.97 | | cmTAPSE: 1.55 cmAV maxP.30 mmHgAV meanP.42 mmHgAV Vmax: 1.44 m/Abigail | | Vmean: 0.96 m/Abigail VTI: 23.77 cmAVA Vmax: 1.71 cm2AVA (VTI): 2.01 wi1CLLC (Vmax): | | 0.00 cm2/m2AVAI (VTI): 0.00 cm2/m2LVOT maxP.85 mmHgLVOT meanP.02 | | mmHgLVSI Dopp: 25.56 ml/m2LVSV Dopp: 47.80 mlLVOT Vmax: 0.68 m/sLVOT Vmean: 0.47 | | m/sLVOT VTI: 13.17 cmMV A Eugene: 0.93 m/sMV Dec Howard: 2.44 m/s2MV DecT: 259.68 | | msMV E Eugene: 0.63 m/sMV E/A Ratio: 0.67 MV PHT: 75.30 msMVA By PHT: 2.92 | | wi7Vfikyv e': 0.03 m/sSeptal E/e': 19.92 Lateral e': 0.04 m/sLateral E/e': 15.46 | | RAP: 5 mmHgRVSP: 34.88 mmHgTR maxP.88 mmHgTR Vmax: 2.73 m/sSonographer: | | DBSAuthenticated by: SPENSER CARBAJAL MDReport Date/Time: -- | | [id number]:26:3IMPRESSION:1. Overall left ventricular systolic function is normal | | with, an EF between 55 - 60 %. | | | |MEASUREMENTS | | | |Ao sinus: 3.12 cm | |IVC: 1.36 cm | |LA Diam: 4.08 cm | |EDV(Teich): 72.65 ml | |IVSd: 1.02 cm | |LVIDd: 4.06 cm | |LVPWd: 0.85 cm | |LVOT Area: 3.62 cm2 | |LVOT Diam: 2.15 cm | |%FS: 23.53 % | |EF(Teich): 47.53 % | |ESV(Teich): 38.12 ml | |LVIDs: 3.10 cm | |SV(Teich): 34.53 ml | |RVIDd: 2.86 cm | |LVEF MOD A2C: 66.55 % | |SV MOD A2C: 48.54 ml | |LVEF MOD A4C: 62.37 % | |SV MOD A4C: 65.41 ml | |EF Biplane: 63.91 % | |LVEDV MOD BP: 90.16 ml | |LVESV MOD BP: 32.53 ml | |LVEDV MOD A2C: 72.94 ml | |LVLd A2C: 7.62 cm | |LVEDV MOD A4C: 104.87 ml | |LVLd A4C: 8.13 cm | |LVESV MOD A2C: 24.39 ml | |LVLs A2C: 6.02 cm | |LVESV MOD A4C: 39.45 ml | |LVLs A4C: 6.72 cm | |LAESV(A-L): 66.19 ml | |LAESV Index (A-L): 35.40 ml/m2 | |LAAs A2C: 19.53 cm2 | |LAESV A-L A2C: 56.96 ml | |LALs A2C: 5.69 cm | |LAAs A4C: 22.73 cm2 | |LAESV A-L A4C: 64.56 ml | |LALs A4C: 6.79 cm | |RAAs: 15.32 cm2 | |RAESV A-L: 40.10 ml | |RAESV MOD: 36.59 ml | |RALs: 4.97 cm | |TAPSE: 1.55 cm | |AV maxP.30 mmHg | |AV meanP.42 mmHg | |AV Vmax: 1.44 m/s | |AV Vmean: 0.96 m/s | |AV VTI: 23.77 cm | |ANTONIO Vmax: 1.71 cm2 | |ANTONIO (VTI): 2.01 cm2 | |AVAI (Vmax): 0.00 cm2/m2 | |AVAI (VTI): 0.00 cm2/m2 | |LVOT maxP.85 mmHg | |LVOT meanP.02 mmHg | |LVSI Dopp: 25.56 ml/m2 | |LVSV Dopp: 47.80 ml | |LVOT Vmax: 0.68 m/s | |LVOT Vmean: 0.47 m/s | |LVOT VTI: 13.17 cm | |MV A Eugene: 0.93 m/s | |MV Dec Howard: 2.44 m/s2 | |MV DecT: 259.68 ms | |MV E Eugene: 0.63 m/s | |MV E/A Ratio: 0.67 | |MV PHT: 75.30 ms | |MVA By PHT: 2.92 cm2 | |Septal e': 0.03 m/s | |Septal E/e': 19.92 | |Lateral e': 0.04 m/s | |Lateral E/e': 15.46 | |RAP: 5 mmHg | |RVSP: 34.88 mmHg | |TR maxP.88 mmHg | |TR Vmax: 2.73 m/s | | | |Sustainability Manager: DBS | |Authenticated by: SPENSER CARBAJAL MD | |Report Date/Time: -- [id number]:26:3 | | | |IMPRESSION: | |1. Overall left ventricular systolic function is normal with, an EF between 55 - 60 %. | + + + + + + + | Performing | Address | City/State/Zipcode | Phone Number | | Organization | | | | + + + + + | [facility] | [address] | [place] [address] | | + + + + + EKG STANDARD 12 LEAD (05/29/2018 11:20 AM) + + + + + | Component | Value | Ref Range | Performed At | + + + + + | Ventricular Rate | 83 | BPM | [facility] | + + + + + | Atrial Rate | 83 | BPM | [facility] | + + + + + | P-R Interval | 174 | ms | [facility] | + + + + + | QRS Duration | 90 | ms | [facility] | + + + + + | Q-T Interval | 400 | ms | [facility] | + + + + + | QTC Calculation | 470 | ms | [facility] | | (Bezet) | | | | + + + + + | Calculated P [place] | 46 | degrees | [facility] | + + + + + | Calculated R [place] | 47 | degrees | [facility] | + + + + + | Calculated T [place] | 62 | degrees | [facility] | + + + + + | Diagnosis | Please refer to | | [facility] | | | Providers office visit | | | | | note for Providers | | | | | Interpretation.Confirmed | | | | | by [facility] [place] Read Only, | | | | | [facility] Jalen ([id number]), | | | | | editorial assistant Martin Simmons | | | | | ([phone]) on 05/29/2018 | | | | | 12:05:43 PM | | | + + + + + + + + + + | Performing | Address | City/State/Zipcode | Phone Number | | Organization | | | | + + + + + | [facility] | [address] | [place] [address] | | + + + + + in this encounter Visit Diagnoses + + | Diagnosis | + + | Coronary artery disease involving kashia coronary artery of kashia heart without angina | | pectoris - Primary | + + | S/P PTCA (percutaneous transluminal coronary angioplasty) | + + | Postsurgical percutaneous transluminal coronary angioplasty status | + + | S/P drug eluting coronary stent placement | + + | Mild calcific aortic stenosis | + + | Aortic valve disorders | + + | Essential hypertension | + + | Unspecified essential hypertension | + + | Mixed hyperlipidemia | + + | Tobacco abuse | + + | Tobacco use disorder | + + | Chronic obstructive pulmonary disease with acute exacerbation (HCC) | + + | Obstructive chronic bronchitis with exacerbation | + + | Risk factors for obstructive sleep apnea | + + | Moderate to severe pulmonary hypertension (HCC) | + + | Other chronic pulmonary heart diseases | + + | Dyspnea on exertion | + + | Other dyspnea and respiratory abnormality | + + | Pre-operative cardiovascular examination | + + | Ureteral mass | + + | Unspecified disorder of kidney and ureter | + +
--- OUTSIDE RECORDS SUMMARY | ~2018-06-27 | XMS | Encounter Summary ---
Demographics + + + | Address | [address] | | | [address] | | | [place] [address] | + + + | Home Phone | | + + + | Preferred Language | Unknown | + + + | Marital Status | Single | + + + | Scientology Affiliation | Unknown | + + + | Race | Unknown | + + + | Ethnic Group | Unknown | + + + Author + + + | Author | [id number] | + + + | Organization | [facility] | + + + | Address [...] Team Providers + +------+ + | Care Tractor Mechanic Name | Role | Phone | + +------+ + | Duyen Chavira MD | PCP | | + +------+ + Reason for Visit + + + | Reason | Comments | + + + | Labs Only | [facility] 06/08/18 | + + + Encounter Details +--------+ + + + + | Date | Type | Department | Care Team | Description | +--------+ + + + + | 06/21/ | Documentati | [facility] [place] | Delia Albert, | Labs Only ([facility] | | 2018 | on Only | [facility] [place] | DANIEL | Labs 06/08/18) | | | | [address] [facility] [address] | | | | [address] | | | | | | [place] [address] | | | | | | [phone] | | | +--------+ + + + [...] | 08/14/ | Office | Cardiology | [facility] | | | 2017 | Visit | | JOSEPHINE Santillan [address] | | | | | | [address] | | | | | | [place] [address] | | | | | | [phone] | | | | | | | | +--------+---------+ + + + | 08/23/ | Office | Cardiology | Lidia Yañez, | | | 2018 | Visit | | MD Frandy Rao | | | | | | Dr Haq, | | | | | | [place] [address] | | | | | | [phone] | | | | | | | | +--------+---------+ + + + as of this encounter Visit Diagnoses Not on filein this encounter"
--- OUTSIDE RECORDS SUMMARY | ~2018-06-27 | XMS | Encounter Summary ---
Demographics + + + | Address | [address] | | | [address] | | | [place] [address] | + + + | Home Phone | | + + + | Preferred Language | Unknown | + + + | Marital Status | Single | + + + | Religion Affiliation | Unknown | + + + | Race | Unknown | + + + | Ethnic Group | Unknown | + + + Author + + + | Author | [facility] | + + + | Organization | [facility] | + + + | Address [...] Team Providers + +------+ + | Care Aquaculturist Name | Role | Phone | + [...] [facility] | [address]alen [address]wood F | napaimute coronary | | | | [facility] [address] | [place] [address] | artery of napaimute | | | | [place] [address] | [phone] | heart without angina | | | | [phone] | | pectoris (Primary | | | [...] | | | | | | exacerbation ([facility]); | | | | | | Risk [...] been moved to a care facility , [facility], as she was n o longer able to care for herself , and had not been taking her medications . I reviewed the medication and vital sign records from there today . Her son and Dr. Chavira's reports she hospitalized with decompensation of chronic diastol ic heart failure 05/31/2017-06/16/2017 secondary to not taking her medications, and subsequent ly moved to [facility], and established with Dr. Chavira [...] been referred for sleep apnea evaluation in [place] REVIEW OF SYSTEMS: Negative except for pertinent [...] 4 L , sees Dr. Diaz in [facility] positive for cough and shortness of [...] years. Denies EtOH use. Resid ent of Xplenty in [place]. Drinks 1-2 servings of caffeine daily. Denies [...] No results found for: METF, NMETFX, TFNMFX, [id number], [id number], TOTEPI CARDIAC IMAGING/PROCEDURES Hx PCI/stent: 03/23/2010:prox LAD [...] RVSP 7 1-76 mmHg area did mild MI. IVC dilated >2.5 cm, CVP 15-20. Aortic [...] rhythm with sinus arrhythmia: Rate 69 bpm, MI 180 ms, QRS 98 ms, QTC 450 ms. Nonspecific T-wave abnormalities in anterior leads EK: ER, [place]: Sinus tachycardia rate 10 6 bpm, MI 170 ms, QRS 90 ms, QTC 479. PAC, RAD, PRWP, no acute changes. EK12/20/2016: Sinus rhythm, PRWP, rate 79 bpm, MI 198 ms, QRS 94ms,QTC 463 ms personally r eviewed by me EK05/29/2018: Normal sinus rhythm with sinus arrhythmia. Low voltage QRS in limb leads. Rate 83 bpm, MI 174 ms, QRS 90 ms, QTC 470 ms ,Personally reviewed by me, similar morpholog y to previous EKG performed in December 2016, except for MI interval is shortened and now has s [...] January 2017 1. Coronary artery disease involving napaimute coronary artery of napaimute heart without angina pectoris 2. S/P PTCA [...] past surgical history. Problem list. JOSEPHINE Chaparro [facility] 05/30/2018in this encounter Plan of Treatment +--------+---------+ + + + | Date | Type | Specialty | Care Team | Description | +--------+---------+ + + + | 08/14/ | Office | Cardiology | Yelena [place] | | | 2017 | Visit | | JOSEPHINE [address] | | | | | | [address] | | | | | | [place] [address] | | | | | | [phone] | | | | | | | | +--------+---------+ + + + | 08/23/ | Office | Cardiology | Lidia Yañez, | | | 2017 | Visit | | MD Frandy [address] | | | | | | Dr Haq, | | | | | | [place] [address] | | | | | | [phone] | | | | | | | [...] the | | | | PDT | napaimute coronary | results section. | | | | | artery of napaimute | | | | | | heart [...] 0.93 m/s | | | MV Dec Yuba: 2.44 m/s2 MV DecT: 259.68 ms MV [...] TR Vmax: 2.73 m/s | | | Supervisor Solder Making: JUNIOR Authenticated by: SPENSER CARBAJAL MD | | | Report Date/Time: -- [id number]:[id number] | | + + + + + | Procedure Note | + + | [place], Rad Results In - 06/08/2018 4:26 PM PDT Patient Name: Kodi PASTOR of | | : 1945ccession: [id number] Physician: SPENSER CARBAJAL MD | | INDICATIONS [...] cmLVIDd: 4.06 cmLVPWd: 0.85 cmLVOT Area: 3.62 [id number] Diam: 2.15 cm%FS: 23.53 | | %EF(Teich): [...] mlLAESV Index (A-L): 35.40 ml/m2LAAs A2C: 19.53 [id number] A-L | | A2C: 56.96 mlLALs A2C: 5.69 cmLAAs A4C: 22.73 [id number] A-L A4C: 64.56 mlLALs | | A4C: 6.79 cmRAAs: 15.32 [id number] A-L: 40.10 mlRAESV MOD: 36.59 mlRALs: 4.97 | | cmTAPSE: 1.55 cmAV maxP.30 mmHgAV meanP.42 mmHgAV Vmax: 1.44 m/Abigail | | Vmean: 0.96 m/Abigail VTI: 23.77 cmAVA Vmax: 1.71 cm2AVA (VTI): 2.01 lr0PPEK (Vmax): | | 0.00 cm2/m2AVAI (VTI): 0.00 cm2/m2LVOT maxP.85 mmHgLVOT meanP.02 | | mmHgLVSI Dopp: 25.56 ml/m2LVSV Dopp: 47.80 mlLVOT Vmax: 0.68 m/sLVOT Vmean: 0.47 | | m/sLVOT VTI: 13.17 cmMV A Eugene: 0.93 m/sMV Dec Yuba: 2.44 m/s2MV DecT: 259.68 | | msMV E Eugene: 0.63 m/sMV E/A Ratio: 0.67 MV PHT: 75.30 msMVA By PHT: 2.92 | | jh6Xzjqjb e': 0.03 m/sSeptal E/e': 19.92 Lateral e': 0.04 m/sLateral E/e': 15.46 | | RAP: 5 mmHgRVSP: 34.88 mmHgTR maxP.88 mmHgTR Vmax: 2.73 m/sSonographer: | | DBSAuthenticated by: SPENSER CARBAJAL MDReport Date/Time: -- | | [id number]:26:3IMPRESSION:1. Overall left ventricular systolic function is normal [...] A Eugene: 0.93 m/s | |MV Dec Yuba: 2.44 m/s2 | |MV DecT: 259.68 ms [...] |TR Vmax: 2.73 m/s | | | |Supervisor Solder Making: DBS | |Authenticated by: SPENSER CARBAJAL MD | |Report Date/Time: -- [id number] | | | |IMPRESSION: | |1. Overall left ventricular systolic function is normal with, an EF between 55 - 60 %. | + + + + + + + | Performing | Address | City/State/Zipcode | Phone Number | | Organization | | | | + + + + + | [facility] | [address] | [place] [address] | | + + + + + [...] + + + + | Calculated P [place] | 46 | degrees | [facility] | + + + + + | Calculated R [place] | 47 | degrees | [facility] | + + + + + | Calculated T [place] | 62 | degrees | [facility] | + + + + + | Diagnosis | Please refer to | | [facility] | | | Providers office visit | | | | | note for Providers | | | | | Interpretation.Confirmed | | | | | by [facility] [place] Read Only, | | | | | [facility] Jalen ([id number]), | | | | | web editor Martin Simmons | | | | | ([id number]) on 05/29/2018 | | | | | 12:05:43 PM | | | + + + + + + + + + + | Performing | Address | City/State/Zipcode | Phone Number | | Organization | | | | + + + + + | [facility] | [address] | [place] [address] | | + + + + + in this encounter Visit Diagnoses + + | Diagnosis | + + | Coronary artery disease involving napaimute coronary artery of napaimute heart without angina | | pectoris - [...]
--- OUTSIDE RECORDS SUMMARY | ~2018-06-27 | XMS | Encounter Summary ---
Demographics + + + | Address | [address] | | | [address] | | | [place] [address] | + + + | Home Phone | | + + + | Preferred Language | Unknown | + + + | Marital Status | Single | + + + | Congregation Affiliation | Unknown | + + + | Race | Unknown | + + + | Ethnic Group | Unknown | + + + Author + + + | Author | [employer] | + + + | Organization | [facility] | + + + | Address [...] Team Providers + +------+ + | Care Home Health Physical Therapist Name | Role | Phone | + +------+ + | Duyen Chavira MD | PCP | | + +------+ + Encounter Details +--------+ + + + + | Date | Type | Department | Care Team | Description | +--------+ + + + + | 06/16/ | Telephone | [facility] [place] | Y[facility] | | | 2017 | | Cardiology [place] | JOSEPHINE [address] | | | | | [address] | [address] | | | | | [facility] [address] | [place] [address] | | | | | [place] [address] | [phone] | | | | | [phone] | | | +--------+ + + + [...] Ren | | | | | | [place] [address] | | | | | | [phone] | | | | | | | | +--------+---------+ + + + | 08/23/ | Office | Cardiology | Lidia Yañez, | | | 2017 | Visit | | MD Frandy Rao | | | | | | Dr Haq, | | | | | | [place] [address] | | | | | | [phone] | | | | | | | | +--------+---------+ + + + as of this encounter Visit Diagnoses Not on filein this encounter"
--- OUTSIDE RECORDS SUMMARY | ~2018-06-27 | XMS | Clinical Summary ---
Demographics + + + | Address | [address] | | | [place] [address] | + + + | Home Phone | | + + + | Preferred Language | Unknown | + + + | Marital Status | Single | + + + | Christianity Affiliation | NRP | + + + | Race | White | + + + | Ethnic Group | Not or | + + + Author + + + | Author | [facility] | + + + | Organization | [facility] | + + + | Address | Unknown | + + + | Phone | Unavailable | + + + Support + + +---------+ + | Name | Relationship | Address | Phone | + + +---------+ + | Walker Martin | ECON | Unknown | | + + +---------+ + Care Team Providers + +------+ + | Care Ice Cream Freezer Name | Role | Phone | + +------+ + PP | Unavailable | + +------+ + Source Comments YAO is fully live on both [facility] and [facility] InPatient.[facility] & [facility] Allergies + + + + + + | Active Allergy | Reactions | Severity | Noted | Comments | | | | | Date | | + + + + + + | Morphine | Headache | | 06/07/20 | | | | | | 13 | | + + + + + + Current Medications + + +--------+---------+------+------+-------+ | Prescription | Sig. | Disp. | Refills | Star | End | Statu | | | | | | t | Date | s | | | | | | Date | | | + + +--------+---------+------+------+-------+ | carBAMazepine 200 | Take 200 mg by mouth | | | | | Activ | | mg Oral tablet | two times daily. | | | | | e | + + +--------+---------+------+------+-------+ | carvedilol 25 mg | Take 25 mg by mouth | | | | | Activ | | Oral tablet | two times daily. | | | | | e | | | Administer with | | | | | | | | food. | | | | | | + + +--------+---------+------+------+-------+ | buPROPion XL 300 | Take 300 mg by mouth | | | | | Activ | | mg Oral tablet | once daily in the | | | | | e | | extended release 24 | morning. | | | | | | | hr | | | | | | | + + +--------+---------+------+------+-------+ | simvastatin 40 mg | Take 40 mg by mouth | | | | | Activ | | Oral tablet | once daily in the | | | | | e | | | evening. | | | | | | + + +--------+---------+------+------+-------+ | clopidogrel 75 mg | Take 75 mg by mouth | | | | | Activ | | Oral tablet | once daily. | | | | | e | + + +--------+---------+------+------+-------+ | amLODIPine 5 mg | Take 5 mg by mouth | | | | | Activ | | Oral tablet | once daily. | | | | | e | + + +--------+---------+------+------+-------+ | losartan 50 mg | Take 50 mg by mouth | | | | | Activ | | Oral tablet | once daily. | | | | | e | + + +--------+---------+------+------+-------+ | traMADol 50 mg | Take 50 mg by mouth | | | | | Activ | | Oral tablet | every six hours as | | | | | e | | | needed. | | | | | | + + +--------+---------+------+------+-------+ | aspirin 325 mg | Take 325 mg by mouth | | | | | Activ | | Oral tablet | once daily. | | | | | e | + + +--------+---------+------+------+-------+ | BECLOMETHASONE | Inhale 2 Puffs as | | | | | Activ | | DIPROPIONATE (QVAR | needed. | | | | | e | | INHL) | | | | | | | + + +--------+---------+------+------+-------+ | albuterol (PROAIR | Inhale 2 Puffs every | | | | | Activ | | HFA) 90 | four hours as | | | | | e | | mcg/actuation | needed. | | | | | | | Inhalation HFA | | | | | | | | Aerosol Inhaler | | | | | | | + + +--------+---------+------+------+-------+ | nitroglycerin 0.4 | Place 0.4 mg under | | | | | Activ | | mg Sublingual | tongue every five | | | | | e | | tablet, sublingual | minutes as needed. | | | | | | | | Do not crush. Place | | | | | | | | under tongue and | | | | | | | | allow to dissolve. | | | | | | | | Administer every 5 | | | | | | | | minutes for a | | | | | | | | maximum of 3 doses | | | | | | | | in 15 minutes. | | | | | | + + +--------+---------+------+------+-------+ | oxyCODONE, | Take 1 to 2 tablets | 30 | 0 | 09/ | | Activ | | immediate release, 5 | by mouth every four | tablet | | 0/20 | | e | | mg Oral tablet | hours as needed for | | | 13 | | | | | severe pain. | | | | | | + + +--------+---------+------+------+-------+ Active Problems + + + | Problem | Noted Date | + + + | Trigeminal neuralgia | 06/07/2013 | + + + + + | Overview: On tegretal with side effect of hyponatremia | + + Family History + + +------+ + | Medical History | Relation | Name | Comments | + + +------+ + | Cancer | Father | | | + + +------+ + | Cancer | Mother | | | + + +------+ + | Diabetes | Mother | | | + + +------+ + | Heart Disease | Mother | | | + + +------+ + | Cancer | Sister | | | + + +------+ + + +------+ + + | Relation | Name | Status | Comments | + +------+ + + | Brother | | Alive | | + +------+ + + | Father | | | | + +------+ + + | Mother | | | | + +------+ + + | Sister | | | | + +------+ + + | Sister | | Alive | | + +------+ + + | Sister | | | | + +------+ + + | Son | | Alive | | + +------+ + + | Son | | Alive | | + +------+ + + | Son | | Alive | | + +------+ + + Social History + + + +--------+------+ | Tobacco Use | Types | Packs/Day | Years | Date | | | | | Used | | + + + +--------+------+ | Current Every Day | Cigarettes | 1.5 | 55 | | | Smoker | | | | | + + + +--------+------+ + +---+---+---+ | Smokeless Tobacco: | | | | | Never Used | | | | + +---+---+---+ + + +---------+ + | Alcohol Use | Drinks/We | oz/Week | Comments | | | ek | | | + + +---------+ + | No | | | | + + +---------+ + + + + | Sex Assigned at | Date Recorded | | | | + + + | Not on file | | + + + Last Filed Vital Signs + + + + | Vital Sign | Reading | Time Taken | + + + + | Blood Pressure | 162/81 | 07/06/2013 10:00 AM PDT | + + + + | Pulse | 69 | 07/06/2013 6:57 AM PDT | + + + + | Temperature | 36.5 C (97.7 F) | 07/06/2013 8:18 AM PDT | + + + + | Respiratory Rate | 16 | 07/06/2013 10:00 AM PDT | + + + + | Oxygen Saturation | 94% | 07/06/2013 10:00 AM PDT | + + + + | Inhaled Oxygen | - | - | | Concentration | | | + + + + | Weight | 103 kg (227 lb) | 06/07/2013 2:01 PM PDT | + + + + | Height | 165.1 cm (5' 5") | 06/07/2013 2:01 PM PDT | + + + + | Body Mass Index | 37.77 | 06/07/2013 2:01 PM PDT | + + + + Plan of Treatment + + + + + | Health Maintenance | Due Date | Last Done | Comments | + + + + + | Pneumococcal (Adult) | | | | | (1 of 2 - PCV13) | 2 | | | + + + + + | INFLUENZA VACCINE | | | | | (FLU SHOT) | 8 | | | + + + + + Results Not on filefrom Last 3 Months Insurance + +--------+ +--------+ + + | Payer | Benefi | Subscriber | Type | Phone | Address | | | t Plan | ID | | | | | | / | | | | | | | Group | | | | | + +--------+ +--------+ + + | MEDICARE | MEDICA | xxxxxxxxxx | Medica | [phone] | [address] | | | RE A & | | re | [phone] | [place] [address] | | | B | | | | | + +--------+ +--------+ + + | [place] | MCAID | xxxxxxxx | Medica | [phone] | [address] [address] | | | QMM | | id | [phone] | [place] [address] | | | QMB | | | | | + +--------+ +--------+ + + + +--------+ +--------+ + + | Guarantor Name | Accoun | Relation to | Date | Phone | Billing Address | | | t Type | Patient | of | | | | | | | | | | + +--------+ +--------+ + + | SVETA MARTIN | Person | Self | [birth year] Home: | [address] | | | al/Fam | | 1945 | [phone] | [place] [address] | | | [place] | | | [phone] | | + +--------+ +--------+ + +
--- OUTSIDE RECORDS SUMMARY | ~2018-06-27 | XMS | Clinical Summary ---
Demographics + + + | Address | [address] | | | [place] [address] | + + + | Home Phone [...] Team Providers + +------+ + | Care Ping Pong Table Assembler Name | Role | Phone | + +------+ + PP | Unavailable | + +------+ + Source Comments YAO is fully live on both [facility] Ambulatory and [facility] InPatient.[facility] & [facility] Allergies + + + + + [...] | MEDICA | xxxxxxxxxx | Medica | [phone] | [address] | | | RE A & | | re | [phone] | [place] [address] | | | B | | | | | + +--------+ +--------+ + + | [place]ID [place] | MCAID | xxxxxxxx | Medica | [phone] | [address] [address] | | | QMM | | id | [phone] | [place] [address] | | | QMB | | | [...] | 1945 | [phone] | [place] [address] | | | [place] | | | [phone] | | + +--------+ +--------+ + +
--- OUTSIDE RECORDS SUMMARY | ~2018-06-27 | XMS | Encounter Summary ---
Demographics + + + | Address | [address] | | | [place] [address] | | | [place] [address] | + + + | Home Phone | | + + + | Preferred Language | Unknown | + + + | Marital Status | Single | + + + | Cheondoism Affiliation | Unknown | + + + | Race | Unknown | + + + | Ethnic Group | Unknown | + + + Author + + + | Author | [facility] | + + + | Organization | [facility] | + + + | Address [...] Team Providers + +------+ + | Care Tire Man Name | Role | Phone | + [...] SHEILA [place] | Delia Albert, | Other ([place] | | 2018 | on Only | [facility] [place] | MA | PCP Notes 05/15/18 ) | | | | [address] | | | | | | [address] | | | | | | [place] [address] | | | | | | [phone] | | | +--------+ + + + [...] | | | | | [place] [address] | | | | | | [phone] | | | | | | | | +--------+---------+ + + + | 08/23/ | Office | Cardiology | Lidia Yañez, | | | 2017 | Visit | | MD Frandy Rao | | | | | | Dr Haq, | | | | | | [place] [address] | | | | | | [phone] | | | | | | | | +--------+---------+ + + + as of this encounter Visit Diagnoses Not on filein this encounter"
--- OUTSIDE RECORDS SUMMARY | ~2018-06-27 | XMS | Encounter Summary ---
Demographics + + + | Address | [address] | | | [place] [address] [place] | | | [place] [address] | + + + | Home Phone | | + + + | Preferred Language | Unknown | + + + | Marital Status | Single | + + + | Episcopal Affiliation | Unknown | + + + | Race | Unknown | + + + | Ethnic Group | Unknown | + + + Author + + + | Author | [facility] | + + + | Organization | [facility] | + + + | Address [...] Team Providers + +------+ + | Care Log Turner Name | Role | Phone | + [...] + | 06/21/ | Documentati | SHEILA [place] | Delia Albert, | Labs Only ([facility] | | 2018 | on Only | [facility] [place] | DANIEL | Labs 06/08/18) | | | | [address] [facility] [address] | | [address] | | | | | | [place] [address] | | | | | | [phone] | | | +--------+ + + + [...] | | | | | [place] [address] | | | | | | [phone] | | | | | | | | +--------+---------+ + + + | 08/23/ | Office | Cardiology | Lidia Yañez, | | | 2018 | Visit | | MD Frandy Rao | | | | | | Dr Haq, | | | | | | [place] [address] | | | | | | [phone] | | | | | | | | +--------+---------+ + + + as of this encounter Visit Diagnoses Not on filein this encounter"
--- OUTSIDE RECORDS SUMMARY | ~2018-06-27 | XMS | Clinical Summary ---
Demographics + + + | Address | [address] | | | [place] [address] | + + + | Home Phone | | + + + | Preferred Language | Unknown | + + + | Marital Status | | + + + | Adventism Affiliation | Unknown | + + + | Race | Unknown | + + + | Ethnic Group | Unknown | + + + Author + + + | Author | [facility] | | | and [place] | + + + | Organization | [facility] | | | and [place] | + + + | Address | Unknown | + + + | Phone | Unavailable | + + + Support + + + + + | Name | Relationship | Address | Phone | + + + + + | Lamonte Pastor | POONAM | [address] | | | | | [place] | | + + + + + | David Pastor | ECON | Unknown | | + + + + + Care Team Providers + +------+ + | Care Stogie Packer Name | Role | Phone | + +------+ + | Duyen Chavira MD | PP | | + +------+ + Allergies + + + +--------+ + | Active Allergy | Reactions | Severity | Noted | Comments | | | | | Date | | + + + +--------+ + | Morphine | | | | | + + + +--------+ + Current Medications + + + +---------+------+------+-------+ | Prescription | Sig. | Disp. | Refills | Star | End | Statu | | | | | | t | Date | s | | | | | | Date | | | + + + +---------+------+------+-------+ | carvedilol (COREG) | Take 25 mg by mouth | | | 04/0 | | Activ | | 25 mg tablet | 2 times daily. | | | 1/20 | | e | | | | | | 11 | | | + + + +---------+------+------+-------+ | aspirin 325 mg | Take 325 mg by mouth | | | 04/0 | | Activ | | tablet | Daily. | | | 1/20 | | e | | | | | | 11 | | | + + + +---------+------+------+-------+ | clopidogrel | Take 75 mg by mouth | | | 04/0 | | Activ | | (PLAVIX) 75 mg | Daily. | | | 11/05 | | e | | tablet | | | | 11 | | | + + + +---------+------+------+-------+ | amLODIPine | Take 5 mg by mouth | | | | | Activ | | (NORVASC) 5 mg | Daily. | | | | | e | | tablet | | | | | | | + + + +---------+------+------+-------+ | losartan (COZAAR) | Take 50 mg by mouth | | | 08/2 | | Activ | | 50 mg tablet | Daily. | | | 05/05 | | e | | | | | | 13 | | | + + + +---------+------+------+-------+ | loperamide | Take 2 mg by mouth 4 | | | | | Activ | | (IMODIUM) 2 mg | times daily as | | | | | e | | capsule | needed. | | | | | | + + + +---------+------+------+-------+ | pravastatin | Take 40 mg by mouth | | | 10/0 | | Activ | | (PRAVACHOL) 40 MG | nightly. | | | 4/20 | | e | | tablet | | | | 16 | | | + + + +---------+------+------+-------+ | nitroglycerin | Place 0.4 mg under | | | | | Activ | | (NITROSTAT) 0.4 mg | the tongue every 5 | | | | | e | | SL tablet | minutes as needed | | | | | | | | for Chest pain. | | | | | | + + + +---------+------+------+-------+ | furosemide (LASIX) | Take 80 mg by mouth | | 0 | 12/2 | | Activ | | 40 mg tablet | Daily. | | | 1/20 | | e | | | | | | 16 | | | + + + +---------+------+------+-------+ | BEVACIZUMAB IV | Place into the left | | | | | Activ | | | eye Every 4 months. | | | | | e | + + + +---------+------+------+-------+ | | Take 3 mLs by | 360 mL | 5 | 03/2 | | Activ | | albuterol-ipratropiu | nebulization every 4 | | | 0/20 | | e | | m (DUONEB) 2.5-0.5 | hours as needed. | | | 17 | | | | mg/3 mL SOLN | | | | | | | + + + +---------+------+------+-------+ | albuterol (PROAIR | Inhale 2 puffs into | | | 03/2 | | Activ | | HFA) 90 mcg/puff | the lungs every 4 | | | 0/20 | | e | | inhaler | hours as needed for | | | 17 | | | | | Shortness of Breath. | | | | | | + + + +---------+------+------+-------+ | tiotropium | Inhale 2 puffs into | 1 | 5 | 03/2 | | Activ | | (SPIRIVA RESPIMAT) | the lungs Daily. | Inhaler | | 0/20 | | e | | 2.5 mcg/puff | | | | 17 | | | | inhalerIndications: | | | | | | | | COPD, severe (HCC) | | | | | | | + + + +---------+------+------+-------+ Active Problems + + + | Problem | Noted Date | + + + | COPD, severe (HCC) | 01/03/2017 | + + + | Hypoxemia | 01/03/2017 | + + + | Facet arthritis of lumbar region ([facility]) | 01/31/2013 | + + + | Lumbar radiculopathy (L5 distribution) | 08/17/2012 | + + + | DDD (degenerative disc disease), lumbar | 08/17/2012 | + + + | Spinal stenosis of lumbar region (moderate at L2-L3) | 08/17/2012 | + + + | CAD (coronary artery disease) | 08/17/2012 | + + + | CHF (congestive heart failure) ([facility]) | 08/17/2012 | + + + | Nicotine addiction | 08/17/2012 | + + + | Obesity | 08/17/2012 | + + + | PERIPHERAL NEUROPATHY | 01/15/2011 | + + + | TRIGEMINAL NEURALGIA | 01/15/2011 | + + + | HYPERCHOLESTEROLEMIA | | + + + | HYPERTENSION | | + + + | CARPAL TUNNEL SYNDROME | | + + + | DEPRESSION, PROLONGED | | + + + | SYNDROME X | | + + + Resolved Problems + + + + | Problem | Noted | Resolved | | | Date | Date | + + + + | COPD (chronic obstructive pulmonary disease) (HCC) | 08/17/20 | | | | 12 | 7 | + + + + Immunizations + + + + | Name | Dates Previously Given | Next Due | + + + + | INFLUENZA 67 Y [place] >, | 08/09/2016 | | | TRIVALENT HIGH-DOSE | | | + + + + | PNEUMOCOCCAL | 08/08/2015 | | | CONJUGATE 13-VALENT | | | | (PCV13) | | | + + + + | ZOSTER, 1 DOSE | 08/09/2016 | | | (ADULT) | | | + + + + Family History + + +------+ + | Medical History | Relation | Name | Comments | + + +------+ + | No Known Problems | Brother | | | + + +------+ + | Cancer | Father | | Prostate | + + +------+ + | Diabetes | Father | | | + + +------+ + | COPD | Mother | | | + + +------+ + | COPD | Sister | | | + + +------+ + | * | Sister | | Unknown | + + +------+ + + +------+ [...] + + Social History + + + +--------+ + | Tobacco Use | Types | Packs/Day | Years | Date | | | | | Used | | + + + +--------+ + | Former Smoker | Cigarettes | 2 | 59 | 05/05/1957 - | | | | | | 08/17/2016 | + + + +--------+ + + +---+---+---+ | Smokeless Tobacco: | | | | | Never Used | | | | + +---+---+---+ + + | Tobacco Cessation: Counseling Given: No | + + + + +---------+ + | Alcohol Use | Drinks/We | oz/Week | Comments | | | ek | | | + + +---------+ + | Yes | 0 | 0.0 | Occasional | | | Standard | | | [...] + + + | Blood Pressure | 120/86 | 01/24/20171513 PDT | + + + + | Pulse | 76 | 01/24/20171513 PDT | + + + + | Temperature | - | - | + + + + | Respiratory Rate | 14 | 08/09/2013923 PDT | + + + + | Oxygen Saturation | 93% | 01/24/20171513 PDT | + + + + | Inhaled Oxygen | - | - | | Concentration | | | + + + + | Weight | 115.2 kg (254 lb) | 01/24/20171513 PDT | + + + + | Height | 165.1 cm (5' 5") | 01/24/20171513 PDT | + + + + | Body Mass Index | 42.27 | 01/24/20171513 PDT | + + + + Plan of Treatment + + + + + | Health Maintenance | Due Date | Last Done | Comments | + + + + + | Hepatitis C | | | | | Screening | 7 | | | + + + + + | Vaccine: | | | | | Dtap/Tdap/Td (1 - | 6 | | | | Tdap) | | | | + + + + + | BREAST CANCER | | | | | SCREENING (MAMM Q2 | 7 | | | | YEARS 50-74) | | | | + + + + + | Colorectal Cancer | | | | | Screening | 7 | | | | (Colonoscopy) | | | | + + + + + | Lung Cancer | | 02/23/2010 | | | Screening | 1 | | | + + + + + | Statin Therapy | | | | | (optimal intensity) | 5 | | | + + + + + | Vaccine: | | 08/08/2015 | | | Pneumococcal 65+ | 6 | | | | Low/Medium Risk (2 | | | | | of 2 - PPSV23) | | | | + + + + + | Vaccine: Zoster (2 | | 08/09/2016 | | | of 3) | 6 | | | + + + + + | Vaccine: Influenza | | 08/09/2016 | | | (#1) | 8 | | | + + + + + Results Not on filefrom Last 3 Months Insurance + +--------+ +--------+ +---------+ | Payer | Benefi | Subscriber | Type | Phone | Address | | | t Plan | ID | | | | | | / | | | | | | | Group | | | | | + +--------+ +--------+ +---------+ | MEDICARE | MEDICA | [id number] | Medica | [phone] | | | | RE | | re | [phone] | | | | PART A | | | | | | | AND B | | | | | + +--------+ +--------+ +---------+ + +--------+ +--------+ + + | Guarantor Name | Accoun | Relation to | Date | Phone | Billing Address | | | t Type | Patient | of | | | | | | | | | | + +--------+ +--------+ + + | SVETA PASTOR | Person | Self | [birth year] | Home: | [address] | | | al/Fam | | 1945 | [phone] | [address] [place] | | | [place] | | | [phone] | [address] | + +--------+ +--------+ + +
--- OUTSIDE RECORDS SUMMARY | ~2018-06-27 | XMS | Encounter Summary ---
Demographics + + + | Address | [address] | | | [place] [address] [place] | | | [place] [address] | + + + | Home Phone | | + + + | Preferred Language | Unknown | + + + | Marital Status | Single | + + + | Bahai Affiliation | Unknown | + + + | Race | Unknown | + + + | Ethnic Group | Unknown | + + + Author + + + | Author | [facility] | + + + | Organization | [facility] | + + + | Address [...] Team Providers + +------+ + | Care Vice President Industrial Relations Name | Role | Phone | + +------+ + | Duyen Chavira MD | PCP | | + +------+ + Encounter Details +--------+ + + + + | Date | Type | Department | Care Team | Description | +--------+ + + + + | 06/07/ | Ancillary | [facility] | [place] | Mild calcific aortic | | 2018 | Procedure | ECHO | [address] | stenosis; Moderate | | | | | Jalen Haywood F | to severe pulmonary | | | | | [place] [address] | hypertension (HCC); | | | | | [phone] | Dyspnea on exertion; | | | | | | Pre-operative | | | | | | cardiovascular | | | | | | examination | +--------+ + + + + Social [...] Ren | | | | | | [place] [address] | | | | | | [phone] | | | | | | | | +--------+---------+ + + + | 08/23/ | Office | Cardiology | Lidia Yañez, | | | 2017 | Visit | | MD Frandy Trejos | | | | | | Dr [address], | | | | | | [place] [address] | | | | | | [phone] | | | | | | | | +--------+---------+ + + + as of this encounter Procedures + +--------+ + + + | Procedure Name | Priori | Date/Time | Associated Diagnosis | Comments | | | ty | | | | + +--------+ + + + | ECHO OUTSIDE | Routin | 06/07/2018 | Mild calcific | Results for this | | INTERPRETATION | e | 1:28 PM | aortic stenosis | procedure are in the | | STANDARD | | PDT | Moderate to severe | results section. | | | | | pulmonary | | | | | | hypertension (HCC) | | | | | | Dyspnea on exertion | | | | | | Pre-operative | | | | | | cardiovascular | | | | | | examination | | + +--------+ + + + in this encounter Results ECHO outside interpretation standard (06/07/2018 1:28 PM) + + + | Impressions | Performed At | + + + | 1. Overall left ventricular systolic function is normal with, an EF | [facility] | | between 55 - 60 %. | RADIOLOGY | + + + + + + | Narrative | Performed At | + + + | Patient Name: SVETA PASTOR Date of : 1945 | [facility] | | Performing Physician: SPENSER CARBAJAL | [...] 0.93 m/s | | | MV Dec Chugach: 2.44 m/s2 MV DecT: 259.68 ms MV [...] TR Vmax: 2.73 m/s | | | Head And Neck Surgeon: JUNIOR Authenticated by: SPENSER CARBAJAL MD | | | Report Date/Time: -- [id number] | | + + + + + | Procedure Note | + + | Curt Stark Results In - 06/08/2018 4:26 PM PDT Patient Name: Kodi PASTOR of | | : 1945ccession: [id number] Physician: SPENSER CARBAJAL MD | | INDICATIONS [...] cmLVIDd: 4.06 cmLVPWd: 0.85 cmLVOT Area: 3.62 eh8ICWB Diam: 2.15 cm%FS: 23.53 | | %EF(Teich): [...] mlLAESV Index (A-L): 35.40 ml/m2LAAs A2C: 19.53 [id number] A-L | | A2C: 56.96 mlLALs A2C: 5.69 cmLAAs A4C: 22.73 kt5XIFRW A-L A4C: 64.56 mlLALs | | A4C: 6.79 cmRAAs: 15.32 gw1SNTIP A-L: 40.10 mlRAESV MOD: 36.59 mlRALs: 4.97 | | cmTAPSE: 1.55 cmAV maxP.30 mmHgAV meanP.42 mmHgAV Vmax: 1.44 m/Abigail | | Vmean: 0.96 m/Abigail VTI: 23.77 cmAVA Vmax: 1.71 cm2AVA (VTI): 2.01 la0RLFL (Vmax): | | 0.00 cm2/m2AVAI (VTI): 0.00 cm2/m2LVOT maxP.85 mmHgLVOT meanP.02 | | mmHgLVSI Dopp: 25.56 ml/m2LVSV Dopp: 47.80 mlLVOT Vmax: 0.68 m/sLVOT Vmean: 0.47 | | m/sLVOT VTI: 13.17 cmMV A Eugene: 0.93 m/sMV Dec Chugach: 2.44 m/s2MV DecT: 259.68 | | msMV E Eugene: 0.63 m/sMV E/A Ratio: 0.67 MV PHT: 75.30 msMVA By PHT: 2.92 | | at9Smurvf e': 0.03 m/sSeptal E/e': 19.92 Lateral e': 0.04 m/sLateral E/e': 15.46 | | RAP: 5 mmHgRVSP: 34.88 mmHgTR maxP.88 mmHgTR Vmax: 2.73 m/sSonographer: | | DBSAuthenticated by: SPENSER CARBAJAL MDReport Date/Time: -- | | [id number]:1. Overall left ventricular systolic function is normal [...] A Eugene: 0.93 m/s | |MV Dec Chugach: 2.44 m/s2 | |MV DecT: 259.68 ms [...] |TR Vmax: 2.73 m/s | | | |Head And Neck Surgeon: DBS | |Authenticated by: SPENSER CARBAJAL MD | |Report Date/Time: -- [id number] | | | |IMPRESSION: | |1. Overall left ventricular systolic function is normal with, an EF between 55 - 60 %. | + + + + + + + | Performing | Address | City/State/Zipcode | Phone Number | | Organization | | | | + + + + + | [facility] | [address] | [place] [address] | | + + + + + in this encounter Visit Diagnoses + + | Diagnosis | + + | Mild calcific aortic stenosis | + + | Aortic valve disorders | + + | Moderate to severe pulmonary hypertension (HCC) | + + | Other chronic pulmonary heart diseases | + + | Dyspnea on exertion | + + | Other dyspnea and respiratory abnormality | + + | Pre-operative cardiovascular examination | + +"
--- OUTSIDE RECORDS SUMMARY | ~2018-06-27 | XMS | Encounter Summary ---
Demographics + + + | Address | [address] | | | [address] | | | [place] [address] | + + + | Home Phone | | + + + | Preferred Language | Unknown | + + + | Marital Status | Single | + + + | Orthodoxy Affiliation | Unknown | + + + | Race | Unknown | + + + | Ethnic Group | Unknown | + + + Author + + + | Author | [employer] | + + + | Organization | [facility] | + + + | Address [...] Team Providers + +------+ + | Care Grades 1 6 Tutor Name | Role | Phone | + +------+ + | Duyen Chavira MD | PCP | | + +------+ + Reason for Visit + + + | Reason | Comments | + + + | Labs Only | [facility] 06/21/18 | + + + Encounter Details +--------+ + + + + | Date | Type | Department | Care Team | Description | +--------+ + + + + | 06/22/ | Documentati | [facility] [place] | Delia Albert, | Labs Only ([facility] | | 2018 | on Only | [facility] [place] | [place] | Labs 06/21/18) | | | | [address] | | | | | | [address] | | | | | | [place] [address] | | | | | | [phone] | | | +--------+ + + + [...] | | | | | [place] [address] | | | | | | [phone] | | | | | | | | +--------+---------+ + + + | 08/23/ | Office | Cardiology | Lidia Yañez, | | | 2018 | Visit | | MD Frandy Rao | | | | | | Dr Haq, | | | | | | [place] [address] | | | | | | [phone] | | | | | | | | +--------+---------+ + + + as of this encounter Visit Diagnoses Not on filein this encounter"
--- OUTSIDE RECORDS SUMMARY | ~2018-06-27 | XMS | Encounter Summary ---
Demographics + + + | Address | [address] | | | [address] | | | [place] [address] | + + + | Home Phone | | + + + | Preferred Language | Unknown | + + + | Marital Status | Single | + + + | Evangelical Affiliation | Unknown | + + + | Race | Unknown | + + + | Ethnic Group | Unknown | + + + Author + + + | Author | [employer] | + + + | Organization | [facility] | + + + | Address [...] Team Providers + +------+ + | Care Car Lubricator Name | Role | Phone | + [...] | 2018 | on Only | [facility] [place] | [place] | PCP Notes 05/23/18) | | | | [address] | | | | | | [address] | | | | | | [place] [address] | | | | | | [phone] | | | +--------+ + + + [...] | | | | | [place] [address] | | | | | | [phone] | | | | | | | | +--------+---------+ + + + | 08/23/ | Office | Cardiology | Lidia Yañez, | | | 2017 | Visit | | MD Frandy Rao | | | | | | Dr Haq, | | | | | | [place] [address] | | | | | | [phone] | | | | | | | | +--------+---------+ + + + as of this encounter Visit Diagnoses Not on filein this encounter"
--- OUTSIDE RECORDS SUMMARY | ~2018-06-27 | XMS | Encounter Summary ---
Demographics + + + | Address | [address] | | | [address] | | | [place] [address] | + + + | Home Phone | | + + + | Preferred Language | Unknown | + + + | Marital Status | Single | + + + | Rastafarian Affiliation | Unknown | + + + | Race | Unknown | + + + | Ethnic Group | Unknown | + + + Author + + + | Author | [id number] | + + + | Organization | [facility] [facility] | + + + | Address [...] Team Providers + +------+ + | Care Winch Driver Name | Role | Phone | + [...] severe pulmonary | | | | | [place] [address] | hypertension (HCC); | | | | | [phone] | Dyspnea on exertion; | | | [...] Ren | | | | | | [place] [address] | | | | | | [phone] | | | | | | | | +--------+---------+ + + + | 08/23/ | Office | Cardiology | Lidia Yañez, | | | 2017 | Visit | | MD Frandy Trejos | | | | | | Dr [address]q, | | | | | | [place] [address] | | | | | | [phone] | | | | | | | [...] SVETA PASTOR Date of : 1945 | [facility] | | Performing Physician: SPENSER CARBAJAL | [...] 0.93 m/s | | | MV Dec Mccreary: 2.44 m/s2 MV DecT: 259.68 ms MV [...] TR Vmax: 2.73 m/s | | | Tie Maker: JUNIOR Authenticated by: SPENSER CARBAJAL MD | | | Report Date/Time: -- [id number] | | + + + + + | Procedure Note | + + | Curt Stark Results In - 06/08/2018 4:26 PM PDT Patient Name: Kodi PASTOR of | | : 1945ccession: [id number] Physician: SPENSER CARBAJAL MD | | INDICATIONS [...] cmLVIDd: 4.06 cmLVPWd: 0.85 cmLVOT Area: 3.62 [id number] Diam: 2.15 cm%FS: 23.53 | | %EF(Teich): [...] mlLAESV Index (A-L): 35.40 ml/m2LAAs A2C: 19.53 [id number] A-L | | A2C: 56.96 mlLALs A2C: 5.69 cmLAAs A4C: 22.73 [id number] A-L A4C: 64.56 mlLALs | | A4C: 6.79 cmRAAs: 15.32 [id number] A-L: 40.10 mlRAESV MOD: 36.59 mlRALs: 4.97 | | cmTAPSE: 1.55 cmAV maxP.30 mmHgAV meanP.42 mmHgAV Vmax: 1.44 m/Abigail | | Vmean: 0.96 m/Abigail VTI: 23.77 cmAVA Vmax: 1.71 cm2AVA (VTI): 2.01 ad2IZLV (Vmax): | | 0.00 cm2/m2AVAI (VTI): 0.00 cm2/m2LVOT maxP.85 mmHgLVOT meanP.02 | | mmHgLVSI Dopp: 25.56 ml/m2LVSV Dopp: 47.80 mlLVOT Vmax: 0.68 m/sLVOT Vmean: 0.47 | | m/sLVOT VTI: 13.17 cmMV A Eugene: 0.93 m/sMV Dec Mccreary: 2.44 m/s2MV DecT: 259.68 | | msMV E Eugene: 0.63 m/sMV E/A Ratio: 0.67 MV PHT: 75.30 msMVA By PHT: 2.92 | | ml6Evnyyn e': 0.03 m/sSeptal E/e': 19.92 Lateral e': 0.04 m/sLateral E/e': 15.46 | | RAP: 5 mmHgRVSP: 34.88 mmHgTR maxP.88 mmHgTR Vmax: 2.73 m/sSonographer: | | DBSAuthenticated by: SPENSER CARBAJAL MDReport Date/Time: -- | | [id number]:26:3IMPRESSION:1. Overall left ventricular systolic function is normal [...] A Eugene: 0.93 m/s | |MV Dec Mccreary: 2.44 m/s2 | |MV DecT: 259.68 ms [...] |TR Vmax: 2.73 m/s | | | |Tie Maker: DBS | |Authenticated by: SPENSER CARBAJAL MD | |Report Date/Time: -- [id number]:26:3 | | | |IMPRESSION: | |1. Overall left ventricular systolic function is normal with, an EF between 55 - 60 %. | + + + + + + + | Performing | Address | City/State/Zipcode | Phone Number | | Organization | | | | + + + + + | [facility] | [address] | [place] [address] | | + + + + + [...]
--- OUTSIDE RECORDS SUMMARY | ~2018-06-27 | XMS | Encounter Summary ---
Demographics + + + | Address | [address] | | | [address] | | | [place] [address] | + + + | Home Phone | | + + + | Preferred Language | Unknown | + + + | Marital Status | Single | + + + | Sikh Affiliation | Unknown | + + + | Race | Unknown | + + + | Ethnic Group | Unknown | + + + Author + + + | Author | [employer] | + + + | Organization | [facility] | + + + | Address [...] Team Providers + +------+ + | Care Title Investigator Name | Role | Phone | + [...] [place] | | | | | [address] [facility] [address] | | | | | | [facility] [address] | | | | | | [place] [address] | | | | | | [phone] | | | +--------+ + + + [...] | | | | | [place] [address] | | | | | | [phone] | | | | | | | | +--------+---------+ + + + | 08/23/ | Office | Cardiology | Lidia Yañez, | | | 2018 | Visit | | MD Frandy Rao | | | | | | Dr [address]q, | | | | | | [place] [address] | | | | | | [phone] | | | | | | | | +--------+---------+ + + + as of this encounter Visit Diagnoses Not on filein this encounter"
--- OUTSIDE RECORDS SUMMARY | ~2018-06-27 | XMS | Clinical Summary ---
Demographics + + + | Address | [address] | | | [place] [address] | + + + | Home Phone | | + + + | Preferred Language | Unknown | + + + | Marital Status | | + + + | Orthodoxy Affiliation | Unknown | + + + | Race | Unknown | + + + | Ethnic Group | Unknown | + + + Author + + + | Author | [facility] | | | and [place] | + + + | Organization | [facility] | | | and [...] Team Providers + +------+ + | Care Logging Assistant Name | Role | Phone | + [...] + | Facet arthritis of lumbar region ([facility]) | 01/31/2013 | + + + | Lumbar radiculopathy (L5 distribution) | 08/17/2012 | + + + | DDD (degenerative disc disease), lumbar | 08/17/2012 | + + + | Spinal stenosis of lumbar region (moderate at L2-L3) | 08/17/2012 | + + + | CAD (coronary artery disease) | 08/17/2012 | + + + | CHF (congestive heart failure) ([facility]) | 08/17/2012 | + + + | [...] +--------+ +---------+ | MEDICARE | MEDICA | [id number] | Medica | [phone]-- | | | [...] Self | [birth year] | Home: | [address] [address] | | | al/Fam | | 1945 | [phone] [address] [place] | | | [place] | | | [phone] | [address] | + +--------+ +--------+ + +
--- OUTSIDE RECORDS SUMMARY | ~2018-06-27 | XMS | Encounter Summary ---
Demographics + + + | Address | [address] | | | [address] | | | [place] [address] | + + + | Home Phone | | + + + | Preferred Language | Unknown | + + + | Marital Status | Single | + + + | Holiness Affiliation | Unknown | + + + | Race | Unknown | + + + | Ethnic Group | Unknown | + + + Author + + + | Author | [employer] | + + + | Organization | [facility] | + + + | Address [...] Team Providers + +------+ + | Care Fire Protection Engineering Technician Name | Role | Phone | + [...] + | 06/22/ | Documentati | [facility] [place] | Delia Albert, | Labs Only ([facility] | | 2018 | on Only | Cardiology [place] | [place] | Labs 06/21/18) | | | | [address] | | | | | | [address] | | | | | | [place] [address] | | | | | | [phone] | | | +--------+ + + + [...] | | | | | [place] [address] | | | | | | [phone] | | | | | | | | +--------+---------+ + + + | 08/23/ | Office | Cardiology | Lidia Yañez, | | | 2018 | Visit | | MD Frandy Rao | | | | | | Dr Haq, | | | | | | [place] [address] | | | | | | [phone] | | | | | | | | +--------+---------+ + + + as of this encounter Visit Diagnoses Not on filein this encounter"
--- OUTSIDE RECORDS SUMMARY | ~2018-06-27 | XMS | Encounter Summary ---
Demographics + + + | Address | [address] | | | [address] | | | [place] [address] | + + + | Home Phone | | + + + | Preferred Language | Unknown | + + + | Marital Status | Single | + + + | Sikhism Affiliation | Unknown | + + + | Race | Unknown | + + + | Ethnic Group | Unknown | + + + Author + + + | Author | [employer] | + + + | Organization | [facility] | + + + | Address [...] Team Providers + +------+ + | Care Engine Service Repairer Name | Role | Phone | + +------+ + | Duyen Chavira MD | PCP | | + +------+ + Encounter Details +--------+ + + + + | Date | Type | Department | Care Team | Description | +--------+ + + + + | 06/16/ | Telephone | [facility] [place] | [place] | | | 2017 | | Cardiology [place] | [address] | | | | | [address] | [place] | | | | | [facility] [address] | [place] [address] | | | | | [place] [address] | [phone] | | | | | [phone] | | | +--------+ + + + [...] Ren | | | | | | [place] [address] | | | | | | [phone] | | | | | | | | +--------+---------+ + + + | 08/23/ | Office | Cardiology | Lidia Yañez, | | | 2017 | Visit | | MD Frandy Rao | | | | | | Dr [address]q, | | | | | | [place] [address] | | | | | | [phone] | | | | | | | | +--------+---------+ + + + as of this encounter Visit Diagnoses Not on filein this encounter"
--- OUTSIDE RECORDS SUMMARY | ~2018-06-27 | XMS | Encounter Summary ---
Demographics + + + | Address | [address] | | | [address] | | | [place] [address] | + + + | Home Phone | | + + + | Preferred Language | Unknown | + + + | Marital Status | Single | + + + | Taoist Affiliation | Unknown | + + + | Race | Unknown | + + + | Ethnic Group | Unknown | + + + Author + + + | Author | [employer] | + + + | Organization | [facility] | + + + | Address [...] Team Providers + +------+ + | Care Ccna Name | Role | Phone | + +------+ + | Duyen Chavira MD | PCP | | + +------+ + Reason for Visit +--------+ + | Reason | Comments | +--------+ + | [place]rell | [facility] ED Visits 04/30/2018 & 05/02/2018 | +--------+ + Encounter Details +--------+ + + + + | Date | Type | Department | Care Team | Description | +--------+ + + + + | 05/29/ | Documentati | [facility] [place] | Delia Albert, | Other ([facility] | | 2018 | on Only | Cardiology [place] | DANIEL | ED Visits 04/30/2018 | | | | [address] | | & 05/02/2018) | | | | [address] | | | | | | [place] [address] | | | | | | [phone] | | | +--------+ + + + [...] | | | | | [place] [address] | | | | | | [phone] | | | | | | | | +--------+---------+ + + + | 08/23/ | Office | Cardiology | Lidia Yañez, | | | 2017 | Visit | | MD Frandy Rao | | | | | | Dr [address]q | | | | | | [place] [address] | | | | | | [phone] | | | | | | | | +--------+---------+ + + + as of this encounter Visit Diagnoses Not on filein this encounter"
--- OUTSIDE RECORDS SUMMARY | ~2018-06-27 | XMS | Encounter Summary ---
Demographics + + + | Address | [address] | | | [address] | | | [place] [address] | + + + | Home Phone | | + + + | Preferred Language | Unknown | + + + | Marital Status | Single | + + + | Bahai Affiliation | Unknown | + + + | Race | Unknown | + + + | Ethnic Group | Unknown | + + + Author + + + | Author | [employer] | + + + | Organization | [facility] | + + + | Address [...] Team Providers + +------+ + | Care Ophthalmic Lens Inspector Name | Role | Phone | + +------+ + | Duyen Chavira MD | PCP | | + +------+ + Encounter Details +--------+ + + + + | Date | Type | Department | Care Team | Description | +--------+ + + + + | 05/29/ | Orders Only | [facility] [place] | Delia Albert, | | | 2017 | | Cardiology [place] | DANIEL | | | | | [address] | | | | | | [address] | | | | | | [place] [address] | | | | | | [phone] | | | +--------+ + + + [...] | | | | | [place] [address] | | | | | | [phone] | | | | | | | | +--------+---------+ + + + | 08/23/ | Office | Cardiology | Lidia Yañez, | | | 2018 | Visit | | MD Frandy Rao | | | | | | Dr [address]q, | | | | | | [place] [address] | | | | | | [phone] | | | | | | | | +--------+---------+ + + + as of this encounter Visit Diagnoses Not on filein this encounter"
--- OUTSIDE RECORDS SUMMARY | ~2018-06-27 | XMS | Clinical Summary ---
Demographics + + + | Address | [address] | | | [address] | | | [place] [address] | + + + | Home Phone | | + + + | Preferred Language | Unknown | + + + | Marital Status | Single | + + + | Muslim Affiliation | Unknown | + + + | Race | Unknown | + + + | Ethnic Group | Unknown | + + + Author + + + | Author | [employer] | + + + | Organization | [facility] | + + + | Address [...] Team Providers + +------+ + | Care News Production Supervisor Name | Role | Phone | + +------+ + | Duyen Chavira MD | PP | | + +------+ + Allergies + + + + + + | Active Allergy | Reactions | Severity | Noted | Comments | | | | | Date | | + + + + + + | Morphine | Other (See Comments) | Medium | 08/30/20 | other | | | | | 13 | | + + + + + + Current Medications + + +--------+---------+------+------+-------+ | Prescription | Sig. | Disp. | Refills | Star | End | Statu | | | | | | t | Date | s | | | | | | Date | | | + + +--------+---------+------+------+-------+ | albuterol | Inhale 2 puffs into | | | | | Activ | | (VENTOLIN HFA) 108 | the lungs every 4 | | | | | e | | (90 BASE) MCG/ACT | (four) hours as | | | | | | | inhaler | needed. | | | | | | + + +--------+---------+------+------+-------+ | Calcium Carbonate | Take 200 mg by mouth | | | | | Activ | | Antacid (TUMS PO) | daily. | | | | | e | + + +--------+---------+------+------+-------+ | acetaminophen | Take 500 mg by mouth | | | | | Activ | | (TYLENOL) 500 MG | every 6 (six) hours | | | | | e | | tablet | as needed for Pain. | | | | | | + + +--------+---------+------+------+-------+ | nitroGLYCERIN | Place 1 tablet under | 25 | 11 | 11/2 | | Activ | | (NITROSTAT) 0.4 MG | the tongue every 5 | tablet | | 1/20 | | e | | SL tablet | (five) minutes as | | | 16 | | | | | needed. | | | | | | + + +--------+---------+------+------+-------+ | loperamide | Take 2 mg by mouth 4 | | | | | Activ | | (IMODIUM) 2 MG | (four) times daily | | | | | e | | capsule | as needed for | | | | | | | | Diarrhea. | | | | | | + + +--------+---------+------+------+-------+ | | 3 mLs. | | | 03/2 | | Activ | | ipratropium-albutero | | | | 0/20 | | e | | l (DUO-NEB) 0.5-2.5 | | | | 17 | | | | mg/3mL | | | | | | | + + +--------+---------+------+------+-------+ | SYMBICORT 160-4.5 | Inhale 2 puffs into | | | 07/1 | | Activ | | MCG/ACT inhaler | the lungs 2 (two) | | | 6/20 | | e | | | times daily. | | | 18 | | | + + +--------+---------+------+------+-------+ | VOLTAREN 1 % | Apply 1 strip | | | 08/0 | | Activ | | | topically as needed. | | | 1/20 | | e | | | | | | 18 | | | + + +--------+---------+------+------+-------+ | DULoxetine | Take 1 capsule by | | | /2 | | Activ | | (CYMBALTA) 30 MG | mouth daily. | | | 1/20 | | e | | capsule | | | | 18 | | | + + +--------+---------+------+------+-------+ | furosemide (LASIX) | Take 1 tablet by | | | /3 | | Activ | | 20 MG tablet | mouth 2 (two) times | | | 0/20 | | e | | | daily. | | | 18 | | | + + +--------+---------+------+------+-------+ | gemfibrozil | Take 1 tablet by | | | 07/2 | | Activ | | (LOPID) 600 MG | mouth 2 (two) times | | | 6/20 | | e | | tablet | daily. | | | 18 | | | + + +--------+---------+------+------+-------+ | metoprolol | Take 1 tablet by | | | 2 | | Activ | | (TOPROL-XL) 25 MG 24 | mouth daily. | | | 3/20 | | e | | hr tablet | | | | 18 | | | + + +--------+---------+------+------+-------+ | potassium chloride | Take 1 tablet by | | | 08/0 | | Activ | | SA (MAURI DIAZ) | mouth daily. | | | 6/20 | | e | | 20 MEQ tablet | | | | 18 | | | + + +--------+---------+------+------+-------+ | pravastatin | Take 1 tablet by | | | 04/17 | | Activ | | (PRAVACHOL) 80 MG | mouth daily. | | | 12/06 | | e | | tablet | | | | 18 | | | + + +--------+---------+------+------+-------+ | aspirin 81 MG | Take 81 mg by mouth | | | | | Activ | | tablet | daily. | | | | | e | + + +--------+---------+------+------+-------+ | docusate sodium | Take 100 mg by mouth | | | | | Activ | | (COLACE) 100 MG | daily. | | | | | e | | capsule | | | | | | | + + +--------+---------+------+------+-------+ | ferrous sulfate, | Take 65 mg of iron | | | | | Activ | | 65 FE, 324 (65 FE) | by mouth daily with | | | | | e | | MG EC tablet | breakfast. | | | | | | + + +--------+---------+------+------+-------+ | Cholecalciferol | Take 1 capsule by | | | | | Activ | | 2000 units CAPS | mouth daily. | | | | | e | + + +--------+---------+------+------+-------+ | nicotine | Place 4 mg inside | | | | | Activ | | polacrilex (COMMIT) | cheek as needed for | | | | | e | | 4 MG lozenge | Smoking cessation. | | | | | | + + +--------+---------+------+------+-------+ | SUMAtriptan | Take 50 mg by mouth | | | | | Activ | | (IMITREX) 50 MG | as needed for | | | | | e | | tablet | Migraine. May repeat | | | | | | | | dose in 2 hours if | | | | | | | | no relief. Do not | | | | | | | | exceed 2 doses in 24 | | | | | | | | hours. | | | | | | + + +--------+---------+------+------+-------+ | aspirin 325 MG | Take 325 mg by mouth | | | | 08/1 | Disco | | tablet | daily. | | | | 3/20 | ntinu | | | | | | | 18 | ed | + + +--------+---------+------+------+-------+ | | Take 1 tablet by | | | | 08/1 | Disco | | Dextromethorphan-Gua | mouth as needed. | | | | 3/20 | ntinu | | ifenesin (MUCINEX DM | | | | | 18 | ed | | MAXIMUM STRENGTH) | | | | | | | | 60-1200 MG per 12 hr | | | | | | | | tablet | | | | | | | + + +--------+---------+------+------+-------+ | clopidogrel | take 1 tablet by | 90 | 3 | 01/0 | 08/1 | Disco | | (PLAVIX) 75 MG | mouth once daily | tablet | | 4/20 | 3/20 | ntinu | | tablet | | | | 15 | 18 | ed | + + +--------+---------+------+------+-------+ | carvedilol (COREG) | Take 1 tablet by | 180 | 3 | 02/2 | 08/ | Disco | | 25 MG tablet | mouth 2 (two) times | tablet | | /20 | 3/20 | ntinu | | | daily with meals. | | | 15 | 18 | ed | + + +--------+---------+------+------+-------+ | amLODIPine | Take 1 tablet by | 90 | 3 | 05/17 | 08/ | Disco | | (NORVASC) 5 MG | mouth daily. | tablet | | 8/20 | 3/20 | ntinu | | tablet | | | | 15 | 18 | ed | + + +--------+---------+------+------+-------+ | erythromycin | Place 5 mg into both | | | | 08/1 | Disco | | (ROMYCIN) ophthalmic | eyes nightly. Thin | | | | 3/20 | ntinu | | ointment | ribbon to affected | | | | 18 | ed | | | eye four times daily | | | | | | | | for 7 days | | | | | | + + +--------+---------+------+------+-------+ | bevacizumab | Inject 10 mg/kg into | | | | 08/1 | Disco | | (AVASTIN) 100 MG/4ML | the vein every 30 | | | | 3/20 | ntinu | | injection | (thirty) days. Left | | | | 18 | ed | | | eye | | | | | | + + +--------+---------+------+------+-------+ | Menthol-Methyl | Apply topically as | | | | 08/1 | Disco | | Salicylate (TIGER | needed. For finger | | | | 3/20 | ntinu | | BALM LINIMENT EX) | nodules | | | | 18 | ed | + + +--------+---------+------+------+-------+ | guaiFENesin | Take 600 mg by mouth | | | | 08/1 | Disco | | (MUCINEX) 600 MG 12 | 2 (two) times | | | | 3/20 | ntinu | | hr tablet | daily. | | | | 18 | ed | + + +--------+---------+------+------+-------+ | pravastatin | Take 1 tablet by | 90 | 3 | 10/0 | 08/1 | Disco | | (PRAVACHOL) 40 MG | mouth nightly. | tablet | | 4/20 | 3/20 | ntinu | | tablet | | | | 16 | 18 | ed | + + +--------+---------+------+------+-------+ | Nutritional | Take by mouth as | | | | 08/1 | Disco | | Supplements (ENSURE | needed. | | | | 3/20 | ntinu | | ACTIVE) LIQD | | | | | 18 | ed | + + +--------+---------+------+------+-------+ | furosemide (LASIX) | Take 1 tablet by | 60 | 2 | 03/0 | 08/1 | Disco | | 40 MG tablet | mouth 2 (two) times | tablet | | 6/20 | 4/20 | ntinu | | | daily. | | | 17 | 18 | ed | + + +--------+---------+------+------+-------+ | losartan (COZAAR) | Take 1 tablet by | 30 | 2 | 03/0 | 08/1 | Disco | | 50 MG tablet | mouth daily. | tablet | | 6/20 | 3/20 | ntinu | | | | | | 17 | 18 | ed | + + +--------+---------+------+------+-------+ | hydrALAZINE | Take 1 tablet by | 90 | 3 | 04/0 | 08/1 | Disco | | (APRESOLINE) 25 MG | mouth 3 (three) | tablet | | 6/20 | 4/20 | ntinu | | tablet | times daily. | | | 17 | 18 | ed | + + +--------+---------+------+------+-------+ | tiotropium | Inhale 2 puffs into | | | 03/2 | 08/1 | Disco | | (SPIRIVA RESPIMAT) | the lungs. | | | 0/20 | 3/20 | ntinu | | 2.5 MCG/ACT inhaler | | | | 17 | 18 | ed | + + +--------+---------+------+------+-------+ Active Problems + + + | Problem | Noted Date | + + + | S/P PTCA (percutaneous transluminal coronary angioplasty) | 05/29/2018 | + + + | S/P drug eluting coronary stent placement | 05/29/2018 | + + + | Hypoxemia | 01/03/2017 | + + + | Chronic obstructive pulmonary disease with acute exacerbation | 09/20/2016 | | (HCC) | | + + + + + | Last Assessment & Plan: COPD, recently hospitalized with | | acute respiratory insufficiency, treated aggressively, initially | | discharged. She has stopped smoking now for almost a month. | | Today in the office, O2 per nasal cannula, 4 L/m.CXR, 08/25/2016: | | Questionable mild CHF, superimposed up on diffuse interstitial | | disease.Labs, 08/17/2016: Trop-T: <0.010, BNP: 48 | | ABG (3L/min): pH: 7.28, pO2: 60, pCO2: 65.8, O2 sat: | | 91.7% Liver enzymes NML, K: 4.7, | | BUN/Cr: 10/0.5, glu: 129 WBC: 5.1, | | H/H: 16.3/48.5, plt: 199Lab, 09/06/2016: Na: 131, K: 4.2, BUN/Cr: | | 11/0.5, glu: 84 | + + + + + | Tobacco abuse | 05/09/2014 | + + + + + | Last Assessment & Plan: Tobacco abuse, still smoking, has | | decided not to stop smoking, she states that "it's the only thing | | that gives the pleasure". | + + + + + | CAD (coronary artery disease) | 10/04/2013 | + + + + + | Last Assessment & Plan: 3V-CAD, Hx PCI/stents, LVEF 55%. | | 71yo WF, first office visit after hospitalization. She was | | admitted to insufficiency, apparently an upper respiratory tract | | infection which deteriorated, she had aggressive medical | | therapy, this included initial BiPAP, eventually weaned, | | discharged in medical therapy, she is on nasal oxygen (4L/min | | pnc). She has stopped smoking. During hospitalization, she was | | found to be hyponatremic, HCTZ was discontinued. In the interim, | | she's had increasing edema, roughly 25 pound weight cane. Her | | ECG was negative for ischemic changes. Cardiac enzymes negative. | | These from hospitalization reviewed. Labs reviewed with | | patient. ECG negative for ischemic changes. Sodium restriction | | reviewed. Also, I've asked her to try to limit her fluids. | | Today I gave her a small prescription for Lasix 40 mg daily, | | potassium chloride 10 mEq twice daily. Upcoming visit with PCP. | | We'll follow her clinically. Hx CABG: noHx PCI/stent: 03/23/2010, | | prox LAD (3.5*12mm Promus EL), RCA (3.5*28mm, 3.5*18mm Promus | | EL) 02/23/2010, prox LCx (2.75*12mm Promus | | EL), distal LCx (2.5*12mm Promus EL).Hx Pacemaker/ICD: noLast | | Cath, 03/23/2010: LCx stents patent, LAD and RCA stented.Last Echo, | | 02/23/2010: TDS, LVEF grossly NML, no significant valvular | | stenosis or regurgitation.Last stress test, 01/16/2015: Lexiscan, | | breast/diaphragmatic attenuation, LVEF 55%.ECG, 08/25/2016 [facility]): sinus tachycardia, 106bpm, PAC, RAD, PRWP, no acute | | changes. | + + + + + | Essential hypertension | 10/04/2013 | + + + + + | Last Assessment & Plan: HTN, controlled, continue current | | meds at current doses (amlodipine, carvedilol, losartan | | | | HCTZ). | + + + + + | Hyperlipidemia | 10/04/2013 | + + + + + | Last Assessment & Plan: Hyperlipidemia, labs reviewed with | | patient. She had been on simvastatin but this caused her | | to"cramp up all over", will try pravastatin 40 mg at bedtime. | | Lab, 02/12/2016: T Chol: 221, LDL-Chol: 153, HDL-Chol: 35, Trig: | | 163 CPK: 54, Liver enzymes NML, K: 4.5, | | BUN/Cr: 10/0.8, glu: 107 | + + + + + | Trigeminal neuralgia | 06/07/2013 | + + + + + | Overview: Overview: | | On tegretal with side effect of hyponatremia | + + + + + | Peripheral neuropathy | 01/15/2011 | + + + Encounters +--------+ + + + + | Date | Type | Specialty | Care Team | Description | +--------+ + + + + | 06/22/ | Documentati | | Delia Albert, | Labs Only ([facility] | | 2017 | on Only | | [place] | Labs 06/21/18) | +--------+ + + + + | 06/21/ | Documentati | | Delia Albert, | Labs Only ([facility] | | 2017 | on Only | | [place] | Labs 06/08/18) | +--------+ + + + + | 06/16/ | Telephone | | Delia Albert, | | | 2017 | | | [place] | | +--------+ + + + + | 06/16/ | Telephone | | Yelena Madrid | | | 2017 | | | JOSEPHINE Santillan | | +--------+ + + + + | 06/07/ | Ancillary | | Yelena Madrid | Mild calcific aortic | | 2017 | Procedure | | JOSEPHINE Santillan | stenosis; Moderate | | | | | | to severe pulmonary | | | | | | hypertension (HCC); | | | | | | Dyspnea on exertion; | | | | | | Pre-operative | | | | | | cardiovascular | | | | | | examination | +--------+ + + + + | 05/29/ | Office | | Yelena Madrid | Coronary artery | | 2017 | Visit | | JOSEPHINE Santillan | disease involving | | | | | | [place] coronary | | | | | | artery of [place] | | | | | | heart without angina | | | | | | pectoris (Primary | | | [...] | | | | | | exacerbation (HCC); | | | | | | Risk factors for | | | | | | obstructive sleep | | | | | | apnea | +--------+ + + + + | 05/29/ | Documentati | | Delia Albert, | Other ([facility] | | 2017 | on Only | | [place] | PCP Notes 05/23/18) | +--------+ + + + + | 05/29/ | Documentati | | Delia Albert, | Other ([facility] | | 2017 | on Only | | [place] | PCP Notes 05/15/18 ) | +--------+ + + + + | 05/29/ | Documentati | | Delia Albert, | Other ([facility] | | 2018 | on Only | | [place] | ED Visits 04/30/2018 | | | | | | & 05/02/2018) | +--------+ + + + + | 05/29/ | Orders Only | | Delia Albert, | | | 2017 | | | [place] | | +--------+ + + + + from Last 3 Months Family History + + +------+ + | Medical History | Relation | Name | Comments | + + +------+ + | Cancer | Father | | | + + +------+ + | Heart disease | Mother | | | + + +------+ + + +------+ + + | Relation | Name | Status | Comments | + +------+ + + | Father | | | cancer | | | | (Age | | | | | 72) | | + +------+ + + | Mother | | | heart disease, CHF, COPD | | | | (Age | | | | | 68) | | + +------+ + + Social [...] AM PDT | + + + + Plan of Treatment +--------+---------+ + + + | Date | Type | Specialty | Care Team | Description | +--------+---------+ + + + | 08/14/ | Office | | Yelena Madrid | | | 2017 | Visit | | JOSEPHINE Santillan [address] | | | | | [address] | | | | | | [place] [address] | | | | | | [phone] | | | | | | | | +--------+---------+ + + + | 08/23/ | Office | | Lidia Yañez, | | | 2017 | Visit | | [address] | | | | | | [address] [place], | | | | | | [place] [address] | | | | | | [phone] | | | | | | | | +--------+---------+ + + + + + + + + | Health Maintenance | Due Date | Last Done | Comments | + + + + + | Vaccine: | | | | | Dtap/Tdap/Td (1 - | 6 | | | | Tdap) | | | | + + + + + | Breast Cancer | | | | | Screening | 7 | | | | (Mammogram) | | | | + + + + + | Colon Cancer | | | | | Screening | 7 | | | | (Colonoscopy) | | | | + + + + + | Lung Cancer | | | | | Screening | 2 | | | + + + + + | DEXA SCAN SCREENING | | | | | | 2 | | | + + + + + | Vaccine: Zoster (2 | | 08/09/2016 | | | of 3) | 6 | | | + + + + + | Vaccine: | | 07/26/2016, 08/08/2015 | | | Pneumococcal 65+ | 7 | | | | Low/Medium Risk (2 | | | | | of 2 - PPSV23) | | | | + + + + + | Vaccine: Influenza | | 08/09/2016 | | | (#1) | 8 | | | + + + + + Procedures + +--------+ + + + | [...] the | | | | PDT | [place] coronary | results section. | | | | | artery of [place] | | | | | | heart [...] | | + +--------+ + + + from Last 3 Months Results ECHO outside interpretation standard (06/07/2018 1:28 [...] SVETA PASTOR Date of : 1945 | [facility] | | Performing Physician: SPENSER CARBAJAL | RADIOLOGY | | | | | INDICATIONS , PULM HTN [...] 0.93 m/s | | | MV Dec [place]: 2.44 m/s2 MV DecT: 259.68 ms MV [...] TR Vmax: 2.73 m/s | | | Sander And Buffer: JUNIOR Authenticated by: SPENSER CARBAJAL MD | | | Report Date/Time: -- [id number] | | + + + + + | Procedure Note | + + | [place], Rad Results In - 06/08/2018 4:26 PM PDT Patient Name: Kodi PASTOR of | | : 1945ccession: [id number] Physician: SPENSER CARBAJAL MD | | INDICATIONS [...] cmLVIDd: 4.06 cmLVPWd: 0.85 cmLVOT Area: 3.62 mh4NAWK Diam: 2.15 cm%FS: 23.53 | | %EF(Teich): [...] mlLAESV Index (A-L): 35.40 ml/m2LAAs A2C: 19.53 [id number] A-L | | A2C: 56.96 mlLALs A2C: 5.69 cmLAAs A4C: 22.73 cb6CCERD A-L A4C: 64.56 mlLALs | | A4C: 6.79 cmRAAs: 15.32 gr0IVFYJ A-L: 40.10 mlRAESV MOD: 36.59 mlRALs: 4.97 | | cmTAPSE: 1.55 cmAV maxP.30 mmHgAV meanP.42 mmHgAV Vmax: 1.44 m/Abigail | | Vmean: 0.96 m/Abigail VTI: 23.77 cmAVA Vmax: 1.71 cm2AVA (VTI): 2.01 gk1JBQJ (Vmax): | | 0.00 cm2/m2AVAI (VTI): 0.00 cm2/m2LVOT maxP.85 mmHgLVOT meanP.02 | | mmHgLVSI Dopp: 25.56 ml/m2LVSV Dopp: 47.80 mlLVOT Vmax: 0.68 m/sLVOT Vmean: 0.47 | | m/sLVOT VTI: 13.17 cmMV A [place]: 0.93 m/sMV Dec [place]: 2.44 m/s2MV DecT: 259.68 | | msMV E [place]: 0.63 m/sMV E/A Ratio: 0.67 MV PHT: 75.30 msMVA By PHT: 2.92 | | nu0Vznguu e': 0.03 m/sSeptal E/e': 19.92 Lateral e': 0.04 m/sLateral E/e': 15.46 | | RAP: 5 mmHgRVSP: 34.88 mmHgTR maxP.88 mmHgTR Vmax: 2.73 m/sSonographer: | | DBSAuthenticated by: SPENSER CARBAJAL MDReport Date/Time: -- | | [id number]:26:3IMPRESSION:1. Overall left ventricular systolic function is normal [...] A [place]: 0.93 m/s | |MV Dec [place]: 2.44 m/s2 | |MV DecT: 259.68 ms [...] |TR Vmax: 2.73 m/s | | | |Sander And Buffer: DBS | |Authenticated by: SPENSER CARBAJAL MD | |Report Date/Time: -- [id number]:[id number] | | | |IMPRESSION: | |1. Overall left ventricular systolic function is normal with, an EF between 55 - 60 %. | + + + + + + + | Performing | Address | City/State/Zipcode | Phone Number | | Organization | | | | + + + + + | [facility] | [address] | [place] [address] | | + + + + + [...] + + + + | Calculated P Irving | 46 | degrees | [facility] | + + + + + | Calculated R Irving | 47 | degrees | [facility] | + + + + + | Calculated T Irving | 62 | degrees | [facility] | + + + + + | Diagnosis | Please refer to | | [facility] | | | Providers office visit | | | | | note for Providers | | | | | Interpretation.Confirmed | | | | | by [facility] Read Only, | | | | | [facility] Jalen ([id number]), | | | | | assistant film editor Martin Simmons | | | | | ([id number]) on 05/29/2018 | | | | | 12:05:43 PM | | | + + + + + + + + + + | Performing | Address | City/State/Zipcode | Phone Number | | Organization | | | | + + + + + | [facility] | [address] | [place] [address] | | + + + + + from Last 3 Months Insurance + +--------+ +------+-------+ + | Payer | Benefi | Subscriber | Type | Phone | Address | | | t Plan | ID | | | | | | / | | | | | | | Group | | | | | + +--------+ +------+-------+ + | MEDICARE | MEDICA | [id number] | | | [address] | | | RE | | | | [place] [id number] | | | IP-OP | | | | | + +--------+ +------+-------+ + | MEDICAID | MEDICA | [id number] | | | [address] | | | ID | | | | [place] | | | [place] | | | | [phone] | + +--------+ +------+-------+ + + +--------+ +--------+ + + | Guarantor Name | Accoun | Relation to | Date | Phone | Billing Address | | | t Type | Patient | of | | | | | | | | | | + +--------+ +--------+ + + | SVETA PASTOR | Person | Self | [birth year] Home: | [address] | | [address] | | 1945 | [phone] | [address] | | | [place] | | | [phone] | [place] | | | | | | | [phone] | + +--------+ +--------+ + +
--- OUTSIDE RECORDS SUMMARY | ~2018-06-27 | XMS | Clinical Summary ---
Demographics + + + | Address | [address] | | | [address] | | | [place] [address] | + + + | Home Phone | | + + + | Preferred Language | Unknown | + + + | Marital Status | Single | + + + | Jewish Affiliation | Unknown | + + + | Race | Unknown | + + + | Ethnic Group | Unknown | + + + Author + + + | Author | [employer] | + + + | Organization | [facility] [employer] [facility] | + + + | Address [...] Team Providers + +------+ + | Care Departmental Secretary Name | Role | Phone | + [...] involving | | | | | | [place] coronary | | | | | | artery of [place] | | | | | | heart [...] | | | | | | [place] [address] | | | | | | [phone] | | | | | | | | +--------+---------+ + + + | 08/23/ | Office | | Lidia Yañez, | | | 2017 | Visit | | [address] | | | | | | [address] [place], | | | | | | [place] [address] | | | | | | [phone] | | | | | | | [...] the | | | | PDT | [place] coronary | results section. | | | | | artery of [place] | | | | | | heart [...] SVETA PASTOR Date of : 1945 | [facility] | | Performing Physician: SPENSER [...] 0.93 m/s | | | MV Dec [place]: 2.44 m/s2 MV DecT: 259.68 ms MV [...] TR Vmax: 2.73 m/s | | | Friction Saw Operator: JUNIOR Authenticated by: SPENSER CARBAJAL MD | | | Report Date/Time: -- [id number]:[id number] | | + + + + + | Procedure Note | + + | [place], Rad Results In - 06/08/2018 4:26 PM PDT Patient Name: Kodi PASTOR of | | : 1945ccession: [id number] Physician: SPENSER CARBAJAL MD | | INDICATIONS [...] cmLVIDd: 4.06 cmLVPWd: 0.85 cmLVOT Area: 3.62 [id number] Diam: 2.15 cm%FS: 23.53 | | %EF(Teich): [...] mlLAESV Index (A-L): 35.40 ml/m2LAAs A2C: 19.53 ly3MXRNU A-L | | A2C: 56.96 mlLALs A2C: 5.69 cmLAAs A4C: 22.73 jq7BLHBU A-L A4C: 64.56 mlLALs | | A4C: 6.79 cmRAAs: 15.32 mq5YOQKN A-L: 40.10 mlRAESV MOD: 36.59 mlRALs: 4.97 | | cmTAPSE: 1.55 cmAV maxP.30 mmHgAV meanP.42 mmHgAV Vmax: 1.44 m/Abigail | | Vmean: 0.96 m/Abigail VTI: 23.77 cmAVA Vmax: 1.71 cm2AVA (VTI): 2.01 mw1WVSL (Vmax): | | 0.00 cm2/m2AVAI (VTI): 0.00 cm2/m2LVOT maxP.85 mmHgLVOT meanP.02 | | mmHgLVSI Dopp: 25.56 ml/m2LVSV Dopp: 47.80 mlLVOT Vmax: 0.68 m/sLVOT Vmean: 0.47 | | m/sLVOT VTI: 13.17 cmMV A [place]: 0.93 m/sMV Dec [place]: 2.44 m/s2MV DecT: 259.68 | | msMV E [place]: 0.63 m/sMV E/A Ratio: 0.67 MV PHT: 75.30 msMVA By PHT: 2.92 | | ms7Omwfet e': 0.03 m/sSeptal E/e': 19.92 Lateral e': 0.04 m/sLateral E/e': 15.46 | | RAP: 5 mmHgRVSP: 34.88 mmHgTR maxP.88 mmHgTR Vmax: 2.73 m/sSonographer: | | DBSAuthenticated by: SPENSER CARBAJAL MDReport Date/Time: -- | | [id number]:26:3IMPRESSION:1. Overall left ventricular systolic function is normal [...] |LVOT VTI: 13.17 cm | |MV A [place]: 0.93 m/s | |MV Dec [place]: 2.44 m/s2 | |MV DecT: 259.68 ms [...] |TR Vmax: 2.73 m/s | | | |Friction Saw Operator: DBS | |Authenticated by: SPENSER CARBAJAL MD | |Report Date/Time: -- [id number]:26:3 | | | |IMPRESSION: | |1. Overall left ventricular systolic function is normal with, an EF between 55 - 60 %. | + + + + + + + | Performing | Address | City/State/Zipcode | Phone Number | | Organization | | | | + + + + + | [facility] | [address] | [place] [address] | | + + + + + [...] + + + + | Calculated P [place] | 46 | degrees | [facility] | + + + + + | Calculated R [place] | 47 | degrees | [facility] | + + + + + | Calculated T [place] | 62 | degrees | [facility] | + + + + + | Diagnosis | Please refer to | | [facility] | | | Providers office visit | | | | | note for Providers | | | | | Interpretation.Confirmed | | | | | by [facility] Read Only, | | | | | [facility] ([id number]), | | | | | photo editor Martin Simmons | | | | | ([id number]) on 05/29/2018 | | | | | 12:05:43 PM | | | + + + + + + + + + + | Performing | Address | City/State/Zipcode | Phone Number | | Organization | | | | + + + + + | [facility] | [address] | [place] [address] | | + + + + + [...] +------+-------+ + | MEDICARE | MEDICA | [id number] | | | [address] | | | [place] | | | | [place] [phone] | | | IP-OP | | | | | + +--------+ +------+-------+ + | MEDICAID | MEDICA | [id number] | | | [address] | | | ID | | | | [place] | | | [place] | | | | [address] | + +--------+ +------+-------+ + + +--------+ [...] | | | | | | | [phone] | + +--------+ +--------+ + +
--- OUTSIDE RECORDS SUMMARY | ~2018-06-27 | XMS | Encounter Summary ---
Demographics + + + | Address | [id number] | | | [facility] | | | [place] [address] | + + + | Home Phone | | + + + | Preferred Language | Unknown | + + + | Marital Status | Single | + + + | Latter-Day Affiliation | Unknown | + + + | Race | Unknown | + + + | Ethnic Group | Unknown | + + + Author + + + | Author | [employer] | + + + | Organization | [facility] | + + + | Address [...] Team Providers + +------+ + | Care Real Estate Appraiser Supervisor Name | Role | Phone | [...] | | | | | [place] [address] | | | | | | [phone] | | | +--------+ + + + [...] | | | | | [place] [address] | | | | | | [phone] | | | | | | | | +--------+---------+ + + + | 08/23/ | Office | Cardiology | Lidia Yañez, | | | 2017 | Visit | | MD Frandy Rao | | | | | | Dr Haq | | | | | | [place] [address] | | | | | | [phone] | | | | | | | | +--------+---------+ + + + as of this encounter Visit Diagnoses Not on filein this encounter"
[~2018-06-27 04:54] MED LIST changes: +AUGMENTIN 875-1 EACH PO
--- OUTSIDE RECORDS SUMMARY | 2018-06-27 04:58 | XMS ---
PreManage Notification: HUNG MARTIN Security Promotion Officer Events No recent Security Events currently on file CRITERIA MET - Group Notification [facility]-Current ADRIANA PHONE: [phone] [facility] Case or Managed Care Provider 06/17/2017-Current ReelBig PHONE: [phone] DR OMID SOLANO Primary Care Current PHONE: [phone] EDISON Santillan 02/14/2017-Current PHONE: [phone] TOMMY BORGES Primary Care 05/17/2015-Current PHONE: Unknown Alec has no Care Guidelines for this patient. Care History Medical/Surgical 05/01/2018 [facility] - Patient is currently established with [facility]. If patient is seen in the ED during business hours. Please contact CHWs at [facility] at [phone] [phone]. Care Recommendation: This patient has had 5 or more Emergency Department visits in the last 12 months.\T\nbsp; Patient requires education on the scope and purpose of the ED as an acute care provider not a Primary Care Provider and should not be utilized for chronic conditions.\T\nbsp; If patient returns to ED please contact Community Health WorkerEmely at [phone]. These are guidelines and the provider should exercise clinical judgment when providing care. E.D. VISIT COUNT ([address] [facility] TOTAL 3 NOTE: Visits indicate total known visits. ED/UCC VISIT TRACKING (12 MO.) 06/27/2018 04:54 [facility] TYPE: Emergency COMPLAINT: - BLOOD IN URINE 05/02/2018 09:45 [facility] TYPE: Emergency COMPLAINT: - UNABLE TO MANAGE PAIN DIAGNOSES: - Urinary tract infection, site not specified - Hypertensive heart disease with heart failure - Heart failure, unspecified - Nicotine dependence, unspecified, uncomplicated - Allergy status to narcotic agent status - Unspecified abdominal pain - Other care home (current) drug therapy - speedometer mechanic (current) use of aspirin 04/30/2018 08:30 [facility] [place] TYPE: Emergency COMPLAINT: - BLOOD IN URINE/PAIN DIAGNOSES: - Hydronephrosis with renal and ureteral calculous obstruction - Hematuria, unspecified - Other care home (current) drug therapy - Hypertensive heart disease with heart failure - Allergy status to narcotic agent status - MCFP (current) use of aspirin - Chronic obstructive pulmonary disease, unspecified - Heart failure, unspecified - Nicotine dependence, unspecified, uncomplicated INPATIENT VISIT TRACKING (12 MO.) No inpatient visits to display in this time frame [email or web address]
[2018-06-27] MEDS ORDERED: AUGMENTIN 875-1 EACH PO (05:06)
[2018-06-27] MEDS ORDERED: PERCOCET 5-3251 EACH PO (05:07)
== END 2018-06-27 07:22 | disposition home or self-care (01) ==
LOC: ED 04:54
DX: R31.9 Hematuria, unspecified (principal); Z98.890 Other specified postprocedural states; F17.200 Nicotine dependence, unspecified, uncomplicated; I11.0 Hypertensive heart disease with heart failure; I50.9 Heart failure, unspecified; J44.9 Chronic obstructive pulmonary disease, unspecified; Z88.5 Allergy status to narcotic agent; Z79.899 Other long term (current) drug therapy
CPT/HCPCS: 81001; 87088; 99283

== ENCOUNTER 2018-11-01 16:56 | Inpatient (IN) | payer MEDICARE, OTHER ==
[~2018-11-01] VITALS: Ht 165.1 cm; Wt 71.0 kg
[~2018-11-01 16:56] MED LIST changes: +CALCIUM500 M1 PO; +KLOR-CON 1010 MEQ PO; +LASIX20 MG PO; +LOPERAMIDE2 M1 PO; +ONDANSETRON ODT8 MG PO; +OXYCODONE HCL10 MG PO; +OXYCODONE HCL5 MG PO; +OXYCONTIN40 MG PO; +PROMETHAZINE12.5 M1 PO; +SENOKOT8.6 MG PO; +SUMATRIPTAN SUC50 MG PO; +TRAZODONE HCL50 MG PO; +VOLTAREN100 GM TOP
--- NOTE | 2018-11-01 17:37 | NUR ---
PT TRANSFERED FROM [facility] TO HERE BY HER BROTHER WHO DROVE HER. PT RESTIGN SUPINE IN BED WITH HOB ELEVATED. PT IS CURRENTLY ON RA AND DENIES SOB WITH RA SAT OF 95% PER PULSE OX. PT IS CHRONICALLY ON 2LPNC AT HOME SO THIS WAS PROVIDED PER PT REQUEST FOR COMFORT. ASSESSMENT COMPLETED AND CALL LIGHT AND H20 IN REACH. PT DENIES FURHTER NEEDS. BED ALARM ON.
--- NOTE | 2018-11-01 19:20 | NUR ---
SHIFT REPORT RECEIVED FROM DAYSHIFT RN AT BEDSIDE. PT AWAKE IN BED, 2LNC IN PLACE, PT DENIES SOB. NO NEEDS AT THIS TIME. ABDOMINAL INCISION APPROXIMATED, MARQUISE IN PLACE W/ ABD PAD. CALL LIGHT IN REACH.
--- NOTE | 2018-11-01 20:36 | NUR ---
ASSISTED PT TO BATHROOM, SBA, ASSISTED WITH DOUGLAS BAG. PAIN WHEN MOVING, SCHEDULED TO HAVE PAIN MEDICATION.
--- NOTE | 2018-11-01 20:45 | NUR ---
ASSESSMENT COMPLETE, SCHEDULED MEDICATIONS GIVEN (SEE EMAR). PT REPORTS 8/10 PAIN, SCHEDULED PAIN MEDICATIONS GIVEN. HEAT PACK ALSO PROVIDED FOR ADDITIONAL COMFORT. PT A/O TO NAME, , AND PARTIALLY TO EVENT AND DATE. ABDOMINAL INCITION NOTED, OPEN TO AIR WITH MARQUISE. APPROXIMATED, SCANT DRY SEROSANGUINEOUS DRAINAGE NOTED, NEW ABD IN PLACE. DOUGLAS CATHETER IN PLACE, PT VOIDING QS YELLOW URINE. PER SHIFT REPORT, PT HAD STAGE 2 DECUBITIS ULCER ON COCCYX, SITE COVERED WITH DRY AND INTACT ALLEVYN. SITE SURROUNDING ALLEVYN BLANCHABLE. PT INSTRUCTED TO TURN FREQUENTLY, PT VERBALIZED UNDERSTANDING. NO FURTHER NEEDS, CALL LIGHT IN REACH.
--- NOTE | 2018-11-01 21:12 | NUR ---
VITALS AND I&OS DONE AND CHARTED. BEDSIDE TABLE AND CALL LIGHT IN REACH. PT NEEDS NOTHING MORE AT THIS TIME.
--- NOTE | 2018-11-01 23:00 | NUR ---
PT RESTING IN BED, RR EVEN AND UNLABORED. PT APPEARS COMFORTABLE, CPAP MACHINE AT BEDSIDE NOT IN USE, PT NOT WANTING MACHINE AT THIS TIME PER RT. WILL CONTINUE TO MONITOR. CALL LIGHT IN REACH.
--- NOTE | 2018-11-02 01:50 | NUR ---
IN ROOM TO CHECK ON PT. PT WHIMPERING, STATING, "IT HURTS...IT HURTS". PT VERBALIZES 6-7/10 PAIN. 10 MG PRN OXYCODONE ADMINISTERED. PT PLACED ON CONTINUOUS PULSE OX. HR 90'S, 02 SAT LOW 90'S ON 2LNC, RR 12-13. HEAT PACK ALSO PROVIDED. CALL LIGHT IN REACH.
--- NOTE | 2018-11-02 03:15 | NUR ---
NOTIFIED BY ANIL LIMA OF PT ASKING ABOUT PAIN MEDICATION. THIS RN IN ROOM. PT RESTING IN BED, RR EVEN AND UNLABORED. EYES CLOSED. 2LNC IN PLACE, O2 SAT AND HR WNL. PT APPEARS COMFORTABLE, WILL CONTINUE TO MONITOR. PT ALLOWED TO REST AT THIS TIME. CALL LIGHT IN REACH.
--- NOTE | 2018-11-02 06:14 | NUR ---
PT SLEPT ON AND OFF THROUGHOUT THE NIGHT. PAIN SOMEWHAT CONTROLLED WITH SCHEDULED AND PRN PAIN MEDICATION. HEAT PACK AND REPOSITIONING HELPED WITH PAIN CONTROL WELL. PT A/OX3, VSS. PT AMBULATES SBA W/ AMBULATION. PT ON CARDIAC DIET, TOLERATING WELL, NO NAUSEA. DOUGLAS CATHETER IN PLACE, VOIDING QS YELLOW CLOUDY URINE. INCISION SITE APPROXIMATED, OPEN TO AIR WITH MARQUISE, ABD PAD IN PLACE. PT ON 2LNC, CONTINUOUS PULSE OX ALSO IN PLACE RELATED TO PAIN MEDICATION ADMINISTRATION. BED ALARM ON.
--- NOTE | 2018-11-02 08:04 | NUR ---
PTS DAUGHTER IN LAW CALLED IN REGARD TO THE PT PLAN OF CARE AND GOALS ETC, THEY WOULD LIKE THE DR AND ALL DISCIPLINES THAT WILL BE RESPONSIBLE FOR HER CARE TO BE THERE. THEY WOULD LIKE THIS SOMETIME TODAY. WE DISCUSSED AND 1430 IS THE TIME WE CAME UP WITH FOR A CARE CONFERENCE, WILL SEE IF THIS IS OK WITH DR JERRY AND ALL. TOM PHONE # IS [phone].
--- NOTE | 2018-11-02 08:46 | NUR ---
Pt reports increased pain, scheduled pain medications administered. Pt assessment completed. Call light and h20 in reach. No further needs/concerns voiced. Bed alarm on.
[2018-11-02] MEDS ORDERED: TOPROL XL25 MG PO (09:33)
[2018-11-02] MEDS ORDERED: OXYCONTIN40 MG PO (09:34)
[2018-11-02] MEDS ORDERED: PROCTOCORT28.4 GM PR (09:43)
[2018-11-02] MEDS ORDERED: SEROQUEL25 MG PO (09:58)
[2018-11-02] MEDS ORDERED: MIRALAX17 GM PO (09:58)
[2018-11-02] MEDS ORDERED: OXYCODONE HCL10 MG PO (09:59)
--- NOTE | 2018-11-02 10:00 | NUR ---
MED REC COMPLETE
--- NOTE | 2018-11-02 10:23 | NUR ---
PT DC PLAN AT THIS TIME IS PT IS GOING TO RETURN TO [facility], FAMILY CALLED THIS AM WITH CONCERNS THAT SHE MAY NEED A HIGHER LEVEL OF CARE FOR AWHILE. WE ARE HAVING A CARE CONFERENCE ABOUT THIS THIS AFTERNOON.
--- NOTE | 2018-11-02 13:10 | NUR ---
PT RESTING IN BED, ALERT AND RESTLESS. PT ADMITTED SHE TRIED TO EAT SOME FRUIT, IT LOOKS REALLY GOOD BUT JUST NO APPETITE. PT STATED, "I RAISE MY HEAD, THEN I WANT IT DOWN. I DON'T KNOW WHAT I WANT OR NEED ANYMORE". FRUSTRATION AN D ANXIETY IN VOICE OF PT. EXTENDED A BLESSING, SHE THANKED ME FOR COMING IN-I WILL CONTINUE TO FOLLOW NEEDED
--- NOTE | 2018-11-02 13:12 | NUR ---
Pt laying supine in bed with eyes closed and opens eyes as i walk in. Pt reports abdominal pain of 6/10 and states she is "not really hungry". Pt's lunch tray is within reach. PRN po oxycodone 5mg administered. pt appears to be in no acute distress with flat affect. Call light and h20 in reach.
--- NOTE | 2018-11-02 15:04 | NUR ---
CARE CONFERENCE ATTENDEES: PATIENT, SON MARIANNA AND HIS TOM. STAFF PRESENT: DR JERRY, MYSELF CASE MANAGEMENT, [facility], YOLANDA OT, RANDA RN, AND MARIZOL PT. DISCUSSION WAS HAD OF WHAT THE PT EXPECTS FAR GOALS, SHE STATED I DON'T NOW WHAT I WANT GOALS, THEN MARIZOL STATED HER 1ST GOAL SHOULD BE 2 LAPS AROUND THE FLOOR AND 6 MINUTES X 3 DAYS, SON ADDED THEN WE COULD INCREASE THE PT GOALS AGAIN, YOLANDA DISCUSSED HOW SHE WOULD BE WORKING WITH HER THE FIRST THREE DAYS TO MEET THE GOAL OF TOILETING ETC BY HERSELF, THEN SHE WOULD INCREASE IT TO [employer] DRESSING ETC. PT STATED SHE IS WILLING TO PARTICIPATE IN HER TRANSITIONAL BED CARE. BOTH OF THESE. I EXPLAINED TO HER ABOUT WHAT MEDICARE IS EXPECTING OF HER AND IF SHE DOESN'T SHOW IMPROVEMENT EVEN SMALL THAT SHE WOULD HAVE TO LEAVE, SON STATES YES SHE WILL HAVE TO GO TO SNF FOR HALF-WAY CARE. WE DISCUSSED THAT SHE NEEDS TO PARTICIPATE IN ACTIVITIES AT LEAST ONE ACTIVITIY A DAY. GOALS WERE WRITTEN ON THE WHITE BOARD. DR JERRY TALKED ABOUT REDUCING THE PAIN MEDS GRADUALLY AND STILL KEEPING THE PAIN WELL CONTROLLED
--- NOTE | 2018-11-02 15:15 | NUR ---
PATIENT'S APPETITE IS FAIR. SHE WAS DRINKING ENSURE AT HOME, BUT IT HAD TO BE COLD AND NO STRAWBERRY FLAVOR. SHE IS EATING ONLY ABOUT HALF OF HER MEALS. CURRENT DIET IS CARDIAC. WILL ADD CHOCOLATE OR VANILLA ENSURE TO COME WITH BREAKFAST AND DINNER MEAL FOR ADDED CALORIES AND PROTEIN.
--- NOTE | 2018-11-02 18:26 | NUR ---
PT RESTING SUPINE IN BED, REPORTS 8/10 PAIN TO LWOER ABD. PRN PO OXYCODONE ADMINISTERED PER PT REQUEST. 2LPNC CONTINUES AND PT DENIES SOB SATTING IN LOW TO MID 90'S. CALL LIGHT AND H20 IN REACH AND BED ALARM ON.
--- NOTE | 2018-11-02 20:32 | NUR ---
VITALS DONE AND CHARTED.BEDSIDE TABLE AND CALL LIGHT IN REACH. THREE HOT PACKS GIVEN PER REQUEST OF PT. ICE WATER AND ICE GIVEN. PT NEEDS NOTHING MORE AT THIS TIME.
--- NOTE | 2018-11-02 21:00 | NUR ---
ASSESSMENT COMPLETE. PT A/OX3, RATES PAIN 6/10 IN TAILBONE. SCHEDULED MEDICATIONS GIVEN, INCLUDING PAIN MANAGEMENT MEDICATIONS (SEE EMAR). PT HAS A STAGE 2 ULCER ON COCCYX PER SHIFT REPORT. ALLEVYN IN PLACE, CDI. SITE SURROUNDING ALLEVYN BLANCHABLE. PT ENCOURAGED TO TURN FREQUENTLY, PT VERBALIZED UNDERSTANDING. PT AGREES TO TRY DONUT DEVICE FOR COCCYX. PT DENIES FURTHER NEEDS. 2LNC IN PLACE, O2 SAT WNL. CALL LIGHT IN REACH.
--- NOTE | 2018-11-02 22:35 | NUR ---
ASSITED PT SBA BACK TO BED FROM THE RESTROOM. BED ALARM IS ON, SHE WAS NOT ABLE TO HAVE A BM. BED ALARM IS ON AND CALL LIGHT IS WITHIN REACH.
--- NOTE | 2018-11-02 23:17 | NUR ---
I&OS DONE AND CHARTED. HELPED PT TO THE BATHROOM WITH HER FWW. SHE WILL CALL WHEN SHE IS READY TO GO BACK TO BED.
--- NOTE | 2018-11-03 00:53 | NUR ---
PT REPORTS DISCOMFORT AND NEED TO VOID. PT REMINDED OF DOUGLAS PLACEMENT. PT SBA TO HAVE BM, ATTEMPT UNSUCCESSFUL. 2LNC IN PLACE, O2 SAT AND HR WNL. DONUT DEVICE GIVEN, PT REMOVED DONUT DEVICE, STATING "I DON'T LIKE IT, TAKE IT OUT". DEVICE REMOVED. WHEN THIS RN STATED, "I WILL GO AND SEE AND I CAN GET FOR YOU", PT STATED, "I WISH SOMEBODY WOULD GO AND GET ME A GUN, I CAN'T GET ONE MYSELF". PT APPEARS AGITATED RELATING TO PAIN CONTROL.
--- NOTE | 2018-11-03 01:53 | NUR ---
pt reports 9/10 pain in abdomen. discussed pain control options with battery charger conveyor line. 10 mg prn oxycodone administered. pt in room wimpering and stating to self, "it hurts...it hurts". vs before administration include 2lnc, o2 sat 96%, hr 89, rr 18. no further needs, call light in reach.
--- NOTE | 2018-11-03 04:45 | NUR ---
PT AWAKE. WHEN ASKED IF PT HAD PAIN, PT STATED, "IT'S BETTER, BUT IT STILL HURTS".
--- NOTE | 2018-11-03 06:31 | NUR ---
manager ecommerce january reported that pt is requesting pain medication for hemorrhoid pain. this rn in room to assess pt. pt currently resting in bed, eyes closed, rr even and unlabored. pt allowed to rest at this time. call light in reach. bed alarm on.
--- NOTE | 2018-11-03 06:36 | NUR ---
PT HAD GOOD NIGHT FOR FIRST HALF OF SHIFT. PAIN SOMEWHAT CONTROLLED WITH SCHEDULED AND PRN PAIN MEDICATIONS. CALLED FREQUENTLY REQUESTING PAIN MEDICATION AND NEED TO VOID. PT FORGETFUL AT TIMES, BUT USUALLY USES CALL LIGHT APPROPERIATELY. VSS, PT ON CPOX AND 2LNC. PT SWINGBED. PT 1PA W/ WALKER FOR AMBULATION. PT ON CARDIAC DIET, TOLERATING WELL, ENCOURAGE PO INTAKE. DOUGLAS CATHETER IN PLACE, VOIDING QS CLOUDY URINE. PT FORGETFUL OF DOUGLAS CATHETER AT TIMES.
--- NOTE | 2018-11-03 07:58 | NUR ---
RECIEVED BEDSIDE REPORT FROM ANIL PABLO. PT AWAKE AND ALERT. PT C/O DISCOMFORT D/T DOUGLAS. REQUESTED DONUT TO SIT ON. O2 IN PLACE. CPOX IN PLACE. INCISION IS C/D/I WITH MARQUISE.
--- NOTE | 2018-11-03 08:55 | NUR ---
PATIENT WENT TO BATH ROOM AT 0800, NO BM. PATIENT WAS IN A LOT OF PAIN. NURSE NOTIFIED. BACK TO BED. CALL LIGHT IN REACH. NO FURTHER NEEDS AT THIS TIME.
--- NOTE | 2018-11-03 09:03 | NUR ---
PT GIVEN 40MG OXYCONTIN AND 15MG OXYCODONE FOR SEVERE PAIN. PT IN TEARS CRYING DUE TO PAIN IN ABD.
--- NOTE | 2018-11-03 11:13 | NUR ---
WARMED UP PATIENT BOTH HER COFFEES AND ADDED BOTH CREAMERS. BED LINENS. WHILE SHE WAS WALKING WITH PHYSICAL THERAPY.
--- NOTE | 2018-11-03 12:13 | NUR ---
PT LAYING IN BED, ALERT AND ANXIOUS TO SEE ME. SHE SMILED AND THEN CRACKED A JOKE WHICH TOLD ME SHE IS FEELING SOMEWHAT BETTER. SHE SQUIRMED REPEATEDLY WHICH IS NOT UNCOMMON HER PT. HAD GOOD VISIT, PT REQUESTED PRAYER. WILL CON- TINUE TO FOLLOW NEEDED
--- NOTE | 2018-11-03 13:55 | NUR ---
PT HAD A VERY LARGE, LIQUID BOWEL MOVEMENT. PT WAS UNABLE TO MAKE THE COMODE. FLOOR, BSC, WASTE BASKET, BED COVERED WITH BM. ES CALLED TO ASSIST WITH THE CLEAN UP. PT PUT IN THE SHOWER WITH ANIL ALMANZAR. BEDDING CHANGED, CLOTHES CHANGED. PT REPORTS CONTINUED BELLY PAIN. PRN OXYCODONE GIVEN, 15MG GIVEN. PT SITTING ON EDGE OF BED WITH LUNCH TRAY IN FRONT OF HER. PT REQUESTED ANIL ALMANZAR HELP HER BACK TO BED.
--- NOTE | 2018-11-03 15:07 | NUR ---
CALLED [employer] RODRIGUES TO DISCUSS PROBABLE DISCHARGE BACK HOME ON TUESDAY OR TUESDAY. WAS TOLD THE MANAGEMENT WAS OUT AND WOULD NOT BE BACK UNTIL TUESDAY.
--- NOTE | 2018-11-03 15:50 | NUR ---
PATIENT WALKS IN HALLWAY THREE LAPS. ONE PERSON ASSISTING. PATIENT BACKS TO ROOM. PATIENT USES BATHROOM. PATIENT BACKS TO BED. CALL LIGHT WITHIN REACH. NO OTHER NEEDS AT THIS TIME
--- NOTE | 2018-11-03 18:11 | NUR ---
PATIENT SITTING UP IN BED. I&O DONE. CALL LIGHT WITHIN REACH. NO OTHER NEEDS AT THIS TIME
--- NOTE | 2018-11-03 20:00 | NUR ---
PATIENT RESTING QUIETLY. RESPIRATIONS ARE REGULAR AND EVEN, EYES CLOSED.
--- NOTE | 2018-11-03 20:50 | NUR ---
PATIENT FAMILY WAS IN ROOM .TOOK PATIENT FOR A WLAK AROUND [facility], PATIENT IS NOW BACK IN HER ROOM AND BACK TO BED,
--- NOTE | 2018-11-03 21:17 | NUR ---
CHARGE NURSE ROUNDING NOTE: UP USING SBA AND FWW, F/C PATENT. WENT FOR A WALK ACOMPANIED BY FAMILY. [id number] TOWARDS NURSES STATION AND BACK TO ROOM. USING PORTABLE O2. TOLERATED FAIR. BACK TO ROOM. TOLERATING FLUIDS WELL. CALL LIGHT AT BEDSIDE
--- NOTE | 2018-11-03 23:43 | NUR ---
PATIENT IS HAVING A HARD TIME GETTING COMFORTABLE. HEAT PACK WAS GIVING AND REAJUSTED PATIENT IN BED, ALARMS ON. CALL LIGHT IN REACH.
--- NOTE | 2018-11-04 00:12 | NUR ---
VINH JUST BACK TO BED AFTER TRYING TO HAVE A BM WITH NO RESULTS AND WAS GIVEN 15MG OXYCODONE FOR 10/10 PAIN.
--- NOTE | 2018-11-04 02:30 | NUR ---
PATIENT BACK TO BED AFTER ONCE AGAIN BEING ASSISSTED TO THE BATHROOM WITH 1PSBA AND WALKER AND NO RESULTS. PATIENT HAS NOT BEEN CRYING AFTER HER 15MG OF OXYCODONE.
--- NOTE | 2018-11-04 03:23 | NUR ---
PATIENT CALLED AND REQUESTED TO WALK. PATIENT AND TEMPORARY RECEPTIONIST WALKED THE MED JESSICA LOOP 1 TIME.PATIENT TRYED TO USED THE BATHROOM NO RESULTS. PATIENT WITH 1P ASSIST WITH 4WW WALKED BACK TO HER BED, FRESH WATER WAS GIVEN CALL LIGHT IN REACH.
--- NOTE | 2018-11-04 05:00 | NUR ---
PATIENT IS FINALLY GETTING SOME SLEEP, RESPERATIONS REGULAR AND EVEN, EYES CLOSED.
--- NOTE | 2018-11-04 06:32 | NUR ---
PATIENT HAS BEEN AWAKE MOST OF THE NIGHT.SHE HAS WALKED AROUND THE UNIT A COUPLE TIMES WITH YANNICK THE OIL EXPELLER. PATIENT IS CONSTANTLY CALLING TO HAVE A BM, BUT NEVER HAS ANY RESULTS. SHE HAD A "HUGE LIQUID BM YESTERDAY". PATIENT'S PAIN IS ALWAYS 8-10/10. HAS HAD HER 30MG OF SCHEDULED OXYCODONE AND MULTIPLE DOSES OF 15MF OF OXYCODONE. REMAINS ON HER 2L/NC CHRONIC. STILL HAS CDI ALLEVYN ON HER COCCYX. PATIENT JUST SEEEMS MISERABLE IN GENERAL AND ONLY SLEPT A COUPLE HOURS.
--- NOTE | 2018-11-04 06:57 | NUR ---
PATIENT CALLED. ASSISTED PATIENT TO RESTROOM. 1PA W 4WW . WITH RESULTS PATIENT HAD LG BM LOOSE. .PATIENT IS BACK TO HER BED. FRESH WATER GIVEN. CALL LIPHYLLIS IN REACH.
--- NOTE | 2018-11-04 07:26 | NUR ---
RECIEVED BEDSIDE REPORT FROM ANIL SCHNEIDER. PT IS SLEEPING, O2 IS IN PLACE AT THIS TIME. PT UP MULTIPLE TIMES TO THE BATHROOM, DID HAVE LARGE BM. PT REPORTS SEVERE PAIN AT ALL TIMES, PRN PAIN MEDS GIVEN. PT TAKES OFF O2 AT TIMES, REFUSES O2 SENSOR AT TIMES. BED ALARM ON.
--- NOTE | 2018-11-04 10:14 | NUR ---
PT'S EXTERNAL HEMRROHIDS ARE VERY ENLARGED AND PAINFUL. PT REPORTS HER HEMRROHIDS ARE MORE PAINFUL THAN ANYTHING ELSE AT THIS POINT. PT FEELS URGE TO HAVE BOWEL MOVEMENT, BUT IS UNABLE. PT HAS TRIED MULTIPLE TIMES. PT UP WITH PHYSICAL THERAPY AT THIS TIME.
--- NOTE | 2018-11-04 10:16 | NUR ---
PATIENT USED RESTROOM, IS CIRILO LARGE AMOUNT OF PAIN RATED IT 100\10, NURSE IS AWARE, ASSISTED PATIENT BACK TO BED
--- NOTE | 2018-11-04 10:26 | NUR ---
DISCUSSED PT'S HEMRROHIDAL PAIN WITH DR NIELSEN. HE WILL ORDER SOMETHING. UP DATED MD ON PT CONDITION AND INCREASED PAIN. PHYSICAL THERAPY PUT PT ON TOILET PER PT REQUEST. PT WILL USE CALL LIGHT WHEN DONE.
--- NOTE | 2018-11-04 19:47 | NUR ---
hot pack requested, given.
--- NOTE | 2018-11-04 20:51 | NUR ---
PATIENT CALLED FOR HER EVENING MEDS. HER VISITORS HAVE GONE HOME. PATIENT SAID SHE IS HAVING 7/10 COCCYX AND BACK PAIN. HER 30MG OF OXYCONTIN PO WERE GIVEN.
--- NOTE | 2018-11-04 23:00 | NUR ---
PATIENT RESTING QUIETLY, RESTING ON 2L/NC, RESPS 20, EYES CLOSED.
--- NOTE | 2018-11-04 23:16 | NUR ---
V/S AND I&O DONE AND CHARTED.
--- NOTE | 2018-11-05 00:52 | NUR ---
PATIENT CALLED WITH 7/10 BACK AND COCCYX PAIN. 15MG OXYCODONE PO GIVEN.
--- NOTE | 2018-11-05 02:22 | NUR ---
SBA TO THE BATHROOM AND BACK TO BED.
--- NOTE | 2018-11-05 03:47 | NUR ---
PATIENT GOT BACK FROM THE BATHROOM WITH 1PSBA AND FWW AND IS CURRENTLY IN BED WATCHING TV.
--- NOTE | 2018-11-05 04:51 | NUR ---
PATIENT CALLED WITH 7/ ABD PAIN REQUESTING MEDICATION. 15MG PO OXYCODONE GIVEN. PATIENT ALSO GOT UP AND USED THE BATHROOM AND THEN BACK TO BED WITH 1PSBA AND FWW.
--- NOTE | 2018-11-05 07:15 | NUR ---
PATIENT'S PAIN STILL NOT WELL CONTROLLED WITH PRESCRIBED MEDS. UP TO THE BATHROOM MULTIPLE TIMES TO VOID. REMAINS ON 2L/NC O2. CREAM WAS APPLIED TO HEMARRHOIDS AT THE BEGINING OF THE SHIFT. PATIENT SLEPT OFF AND ON THROUGH THE NIGHT.
--- NOTE | 2018-11-05 07:50 | NUR ---
RECIEVED BEDSIDE REPORT FROM ANIL SCHNEIDER. PT SLEEPING, MOANING AT TIMES. PT ALLOWS APPLICATION OF CREAM TO BOTTOM. DID NOT TAKE A SITZ BATH, BUT WILL TODAY. VOIDING WELL, BUT MOVES THE HAT.
--- NOTE | 2018-11-05 09:35 | NUR ---
BROUGHT HER A COFFEE AND ALSO SHE ORDERED A LIGHT BREAKFAST.
--- NOTE | 2018-11-05 11:32 | NUR ---
PATIENT WALKED WITH WALKER AND WITH HER COUSIN 252 FEET.
--- NOTE | 2018-11-05 15:10 | NUR ---
SITZ BATH COMPLETE WHILE PT WAS IN SHOWER. PT COMPLAINED AND PROTESTED, BUT DID EVENTUALLY SIT IN THE BATH FOR APROX 2 MIN. AFTER SHOWER/SITZ BATH, PT AGREED TO HAVE OINTMENT REAPPLIED TO BOTTOM. WILL ADVISE NOC SHIFT OF BID SITZ BATH AND ALSO PRN.
--- NOTE | 2018-11-05 16:13 | NUR ---
AROUND 1430 PATIENT TOOK A SHOWER HELPED HER WASH HER FEET AND LEGS AND ALSO HER BACK. WHILE NURSE CHANGED THE BED LINENS.
--- NOTE | 2018-11-05 18:29 | NUR ---
PT IV REMOVED, MD ORDER TO LEAVE OUT. PT TOLERATED SHOWER AND SITZ BATH THIS SHIFT. ORDER FOR BID SITZ BATHS AND PRN. TOLERATED OINTMENT TO HEMRROHIDS. NON-COMPLAINT WITH O2. DID AMBULATE WITH FAMILY AND PHYSICAL THERAPY. INCREASING ORAL INTAKE.
--- NOTE | 2018-11-05 19:15 | NUR ---
SHIFT REPORT RECEIVED AT BEDSIDE. PATIENT SITTING UP IN BED. REPORTS HEMORRHOIDAL PAIN, BUT STATES SHE DOES NOT WANT TO DO THE SITZ BATH UNTIL LATER. BED ALARM ON. CALL LIGHT IN REACH.
--- NOTE | 2018-11-05 20:00 | NUR ---
ASSISTED PATIENT TO THE BATHROOM, SBA W/FWW. PATIENT RETURNED TO BED. HOT COFFEE AND A SODA PROVIDED PER REQUEST. PATIENT REPORTS FEELING FRUSTERATED WITH BED ALARM SOUNDING EACH TIME SHE REPOSITIONS. PATIENT AGREES TO NOT EXIT BED WITHOUT NOTIFYING STAFF, DISCUSSED FALL RISK WITH PATIENT. CALL LIGHT IN REACH. OXYGEN IN PLACE.
--- NOTE | 2018-11-05 20:30 | NUR ---
EVENING MEDICATIONS PROVIDED. PATIENT REPORTS PAIN FROM HER HEORRIODS. PRN CREAM APPLIED. ENCOURAGED PATIENT TO USE THE SITZ BATH, WHICH SHE REFUSED. PATIENT REMINDED TO KEEP O2 IN PLACE. LUNGS ARE COARSE IN THE BASES BILATERALLY. PATIENT NOT USING IS AND REFUSED HER NEB TREATMENT THIS EVENING. EDUCATED PATIENT ABOUT GOOD RESPIRTORY CARE. PATIENT'S SURGICAL SITE IS OPEN TO AIR, WELL APPROXIMATED. PATIENT DENIES ANY FURTHER NEEDS AT THIS TIME. CALL LIGHT IN REACH.
--- NOTE | 2018-11-05 22:15 | NUR ---
PATIENT APPEARS TO BE SLEEPING SOUNDLY. RR 18. O2 IN PLACE. CALL LIGHT IN REACH.
--- NOTE | 2018-11-05 23:44 | NUR ---
V/S DONE AND CHARTED. CALL LIGHT WITHIN REACH. DENIES NEEDS AT THIS MOMENT.
--- NOTE | 2018-11-06 00:30 | NUR ---
PATIENT CALLED FOR ASSISTED TO THE BATHROOM AND PAIN MEDICATION. ASH MORRISON ASSISTED HER TO THE BATHROOM. PRN OXY PROVIDED FOR 8/10 HIP PAIN. PATIENT RETURNED TO BED, WITH 2L NC IN PLACE. DENIES FURTHER NEEDS.
--- NOTE | 2018-11-06 00:42 | NUR ---
PATIENT CALLED TO USE THE BATHROOM. 1 SBA USING WALKER.
--- NOTE | 2018-11-06 02:00 | NUR ---
PATIENT APPEARS TO BE SLEEPING. RR 19. CALL LIGHT IN REACH. 2L NC IN PLACE.
--- NOTE | 2018-11-06 04:30 | NUR ---
PATIENT REPORTS PAIN IN RIGHT SIDE. PRN OXY PROVIDED PER ORDERS. PATIENT APPEARS VERY PAINFUL AND HAS DIFFICULTY GETTING COMFORTABLE. ONLINE FACILITATOR PROVIDED WARM PACK FOR HER SIDE.
--- NOTE | 2018-11-06 05:30 | NUR ---
PATIENT UP TO THE BATHROOM. CONTINUES TO REPORT PAIN IN RIGHT SIDE. INFORMED PATIENT OF PAIN MANAGEMENT SCHEDULE WHICH SHE STATED "WELL ITS NOT ENOUGH BUT I'LL HAVE TO LIVE WITH IT". DISCUSSED ALTERNATIVE PAIN MANAGEMENT OPTIONS, PATIENT DECLINED.
--- NOTE | 2018-11-06 06:06 | NUR ---
PATIENT SLEPT WELL THIS FIRST HALF OF THE SHIFT. PRN PAIN MEDS AND SCHEDULED PAIN MEDS APPEARED TO HAVE GOOD PAIN CONTROL UNTIL THIS AM WHEN THE PATIENT HAS BEEN MORE RESTLESS. PAIN HAS BEEN IN THE RIGHT SIDE, LOWER ABD, AT THE SURGICAL SITE, RIGHT HIP, AND HEMORROIDS. PATIENT REFUSED SITZ BATH, PRN CREAM PROVIDED. 2L NC, SCHEDULED NEBS. SBA W/FWW. PATIENT NOT ALWAYS CORROPERATIVE WITH CARE, BUT DOES NOT APPEAR FORGETFUL. ORIENTED X4, THROUGHOUT SHIFT.
--- NOTE | 2018-11-06 07:42 | NUR ---
RECIEVED BEDSIDE REPORT FROM ANIL STEVENS. PT SLEEPING SOUNDLY, BREATHING EVEN AND UNLABORED. PT APPEARS VERY COMFORTABLE.
--- NOTE | 2018-11-06 09:33 | NUR ---
PATIENT UP TO BATHROOM AND BACK TO BED, FWW SBA. FRESH WATER GIVEN. CALL LIGHT IN REACH. NO FURTHER NEEDS AT THIS TIME.
--- NOTE | 2018-11-06 11:29 | NUR ---
CALLED [facility] TO LET THEM KNOW HUNG WAS CLEARED TO GO HOME FROM PHYSICAL THERAPY AND OCCUPATIONAL THERAPY. THEY WILL BE IN THIS AFTERNOON TO ASSESS HER.
--- NOTE | 2018-11-06 12:12 | NUR ---
PT UP AMBULATING IN HALLWAY WITH P.T. AND OT. SHE WOULDN'T ADMIT, BUT SHE WAS ENJOYING BEING UP AND AROUND. GOOD CONVERSATION, WILL CONTINUE TO FOLLOW NEEDED
--- NOTE | 2018-11-06 13:35 | NUR ---
PT IS UP WALKING IN THE [place] WITH HER SON.
--- NOTE | 2018-11-06 13:40 | NUR ---
PATIENT UP WALKING IN HALLWAY WITH FAMILY. SHOWER REFUSED. NO FURTHER NEEDS AT THIS TIME.
--- NOTE | 2018-11-06 14:30 | NUR ---
SPOKE WITH KYM AT [facility] REGARDING DISCHARGE PLANS. DISCUSSED THAT PATIENT HAS BEEN CLEARED BY PT AND OT AND WILL DISCHARGE TOMORROW. SHE STATES SHE NEEDS TO FIND OUT FROM FIELD SERVICER WHEN THEY CAN COME DO ASSESSMENT. SHE CALLED BACK WITHIN 20 MINUTES AND STATED THEY WILL BE HERE TOMORROW AT 9AM. STAFF UPDATED.
--- NOTE | 2018-11-06 15:00 | NUR ---
PT AGREED TO A SITZ BATH AT 1600. WILL APROCH AT THAT TIME.
--- NOTE | 2018-11-06 18:12 | NUR ---
PT UP AMBULATING IN HALLS MULTIPLE TIMES. INDEPENDENT IN ROOM. KEPT O2 ON MOST OF SHIFT. REFUSED SITZ BATHS, BUT DID ALLOW CREAM TO BE APPLIED. PT UP AND DRESSED. EATING WELL, DRINKING WELL. VOIDING WELL.
--- NOTE | 2018-11-06 18:24 | NUR ---
PATIENT IN BED RESTING WITH EYES CLOSED. CALL LIGHT IN REACH. NO FURTHER NEEDS AT THIS TIME.
--- NOTE | 2018-11-06 19:20 | NUR ---
SHIFT REPORT RECEIVED. PATIENT APPEARS TO BE SLEEPING. RR 18.
--- NOTE | 2018-11-06 19:22 | NUR ---
CHARGE NURSE REPORT RECEIVED. PT IN BED WATCHING TV AT THIS TIME. NO NEEDS.
--- NOTE | 2018-11-06 21:15 | NUR ---
PATIENT RESTING IN BED RECEIVING NEB TREATMENT FROM RT. PATIENT IS FREQUENTLY DROSWEY. REPORTS PAIN. SCHEDULED MEDS GIVEN PER ORDER. PATIENT'S LUNGS ARE CLEAR, 2L NC. WOUND CDI. PATIENT DECLINING HEMMORIOD OINTMENT AT THIS TIME. WILL APPLY WHEN PATIENT GOES TO BATHROOM NEXT. PATIENT DENIES FURTHER NEEDS.
--- NOTE | 2018-11-07 01:00 | NUR ---
PT SITTING AT EDGE OF BED AWAKE. PT REPORTS PAIN. PRN PAIN MEDCIATION TO BE ADMINISTERED.
--- NOTE | 2018-11-07 04:25 | NUR ---
PT RESTING IN BED WITH EYES CLOSED. RESPIRATIONS EVEN AND UNLABORED. PT APPEARS TO BE SLEEPING. DOES NOT WAKE WHILE SOLAR CONSULTANT IN DOORWAY. CALL LIGHT IN REACH.
--- NOTE | 2018-11-07 05:20 | NUR ---
PT RESTING IN BED WITH EYES CLOSED. APPEARS TO BE SLEEPING. DOES NOT WAKE WHILE VIDEO GAMES STORYWRITER IN ROOM. CALL LIGHT WITHIN REACH.
--- NOTE | 2018-11-07 06:11 | NUR ---
PT RESTING WELL THIS SHIFT. OXYCODONE X 1 FOR BREAKTHROUGH PAIN TO ABDOMEN. O2 @ LPM VIA NC. SCHEDULED NEBS. HEMRRHOIDS, PT REFUSING SITZ BATH. SBA. NO IV ACCESS.
--- NOTE | 2018-11-07 06:46 | NUR ---
PT RATES PAIN 6/10 TO ABD AND HEMRRHOIDS. PRN OXYCODONE ADMINISTERED. PT ASSISTED TO THE BATHROOM AND BACK TO BED. TOLERATED WELL. PT DENIES FURTHER NEEDS. CALL LIGHT WITHIN REACH.
--- NOTE | 2018-11-07 08:15 | NUR ---
MORNING ASSESSMENT DONE. PATIENT REPORTS RIGHT SIDE PAIN 6/10 WITH NO RELIEF WITH PRN PAIN MEDICATIONS. PATIENT UP TO VOID, AMBULATES INDEPENDANTLY WITH WALKER. ENCOURAGED PATIENT TO KEEP O2 ON.
--- NOTE | 2018-11-07 09:40 | NUR ---
REPRESENTATIVES FROM [facility] IN TO SEE PATIENT.
--- NOTE | 2018-11-07 11:11 | NUR ---
PT DECLINED SHOWER AND BEDBATH. STATED THAT SHE WAS GOING HOME AND DIDNT WANT ONE.
--- NOTE | 2018-11-07 11:19 | NUR ---
PATIENT UP TO AMBULATE TO BATHROOM, PAIN IS 2/10
[2018-11-07] MEDS ORDERED: ELIQUIS5 MG PO (12:52)
[2018-11-07] MEDS ORDERED: OXYCONTIN20 MG PO (12:53)
[2018-11-07] MEDS ORDERED: OXYCODONE HCL10 MG PO (12:56)
[2018-11-07] MEDS ORDERED: ONDANSETRON ODT8 MG PO (12:58)
[2018-11-07] MEDS ORDERED: CALCIUM500 M1 PO (12:59)
--- NOTE | 2018-11-07 14:26 | NUR ---
PT DRESSED, LAYING IN BED WATCHING TV. MOTIONED ME IN,PT IS WAITING TO BE DC'D TODAY TO [facility]. RT IN TO CARE FOR PT, EXTENDED A BLESSING. WILL FOLLOW NEEDED
== END 2018-11-07 15:02 | disposition home or self-care (01) | DRG 948 ==
LOC: MS 16:56
PROVIDERS: ADMIT Student in an Organized Health Care Education/Training Program
DX: R53.81 Other malaise (principal); C66.1 Malignant neoplasm of right ureter; J96.11 Chronic respiratory failure with hypoxia; I50.32 Chronic diastolic (congestive) heart failure; F11.20 Opioid dependence, uncomplicated; G89.3 Neoplasm related pain (acute) (chronic); K64.9 Unspecified hemorrhoids; J44.9 Chronic obstructive pulmonary disease, unspecified; I25.10 Atherosclerotic heart disease of native coronary artery without angina pectoris; I11.0 Hypertensive heart disease with heart failure; Z66 Do not resuscitate; E78.5 Hyperlipidemia, unspecified; Z79.82 Long term (current) use of aspirin; L89.302 Pressure ulcer of unspecified buttock, stage 2; Z99.81 Dependence on supplemental oxygen
CPT/HCPCS: 36415; 80048; 80061; 83735; 85025; 85610; 94640; 94762; 97110; 97116; 97163; 97166; 97535; 99406; J3475

== ENCOUNTER 2018-11-13 17:12 | Observation (INO) | payer MEDICARE, OTHER ==
[~2018-11-13] VITALS: Ht 165.1 cm; Wt 61.2 kg
[~2018-11-13 17:12] MED LIST changes: +ELIQUIS5 MG PO; +MIRALAX17 GM PO; +OXYCONTIN20 MG PO; +PROCTOCORT28.4 GM PR; +SEROQUEL25 MG PO; +TOPROL XL25 MG PO
--- OUTSIDE RECORDS SUMMARY | 2018-11-13 17:14 | XMS ---
PreManage Notification: HUNG MARTIN Security Dietary Assistant Events No recent Security Events currently on file CRITERIA MET - Group Notification - 6 ED Visits in 6 Months CARE PROVIDERS Nina Narvaez Director Of Education And Training/[employer] 08/16/2017-Current [facility]: [phone] [facility] 05/[facility]2018-Current ROSEANNEDinglepharbYanelis PHONE: [phone] [facility] Case or Imaging Technologist 06/17/2017-[employer] PHONE: [phone] DR OMID SOLANO Primary Care Current PHONE: [phone] Nina Narvaez Primary Care 08/17/2017-Current PHONE: [phone] FOX SALVADOR Primary Care Current PHONE: Unknown DOCTOR LI Primary Care Current PHONE: Unknown EDISON Santillan 02/14/2017-Current PHONE: [phone] TOMMY BORGES Primary Care 05/17/2015-Current PHONE: Unknown Alec has no Care Guidelines for this patient. Care History Medical/Surgical 05/01/2018 [facility] - Patient is currently established with [facility]. If patient is seen in the ED during business hours. Please contact CHWs at [facility] at [place]y [phone]. Care Recommendation: This patient has had 5 or more Emergency Department visits in the last 12 months.\T\nbsp; Patient requires education on the scope and purpose of the ED as an acute care provider not a Primary Care Provider and should not be utilized for chronic conditions.\T\nbsp; If patient returns to ED please contact Community Health WorkerEmely at [phone]. These are guidelines and the provider should exercise clinical judgment when providing care. E.D. VISIT COUNT (12 MO.) 8 [facility] TOTAL 8 NOTE: Visits indicate total known visits. ED/UCC VISIT TRACKING (12 MO.) 11/13/2018 17:13 [facility] TYPE: Emergency COMPLAINT: - SEPSIS 10/01/2018 02:36 [facility] TYPE: Emergency COMPLAINT: - SOB DIAGNOSES: - Allergy status to narcotic agent status - termite treater (current) use of aspirin - Chronic obstructive pulmonary disease with (acute) exacerbation - Other group home (current) drug therapy - Nicotine dependence, unspecified, uncomplicated - Shortness of breath - Hypertensive heart disease with heart failure - Heart failure, unspecified - termite treater (current) use of systemic steroids 2018 17:56 [facility] TYPE: Emergency COMPLAINT: - SHORTNESS OF BREATH 09/12/2018 12:25 [facility] TYPE: Emergency COMPLAINT: - SOB, ABD PAIN DIAGNOSES: - Nicotine dependence, unspecified, uncomplicated - Hypertensive heart disease with heart failure - Other bed bug exterminator (current) drug therapy - Allergy status to narcotic agent status - Heart failure, unspecified - termite treater (current) use of aspirin - Shortness of breath - Malignant neoplasm of right ureter - Chronic obstructive pulmonary disease, unspecified - Dependence on supplemental oxygen 07/31/2018 12:36 [facility] TYPE: Emergency COMPLAINT: - ABD PAIN DIAGNOSES: - Malignant neoplasm of unspecified ureter - Chronic obstructive pulmonary disease, unspecified - penitentiary (current) use of aspirin - Nicotine dependence, unspecified, uncomplicated - Neoplasm of unspecified behavior of other specified sites - Other bed bug exterminator (current) drug therapy - Allergy status to narcotic agent status - Encounter for issue of repeat prescription - Heart failure, unspecified - Hypertensive heart disease with heart failure - Neoplasm related pain (acute) (chronic) 06/27/2018 04:54 [facility] TYPE: Emergency COMPLAINT: - BLOOD IN URINE DIAGNOSES: - Nicotine dependence, unspecified, uncomplicated - Heart failure, unspecified - Hypertensive heart disease with heart failure - Allergy status to narcotic agent status - Chronic obstructive pulmonary disease, unspecified - Other bed bug exterminator (current) drug therapy - Other specified postprocedural states - Hematuria, unspecified 05/02/2018 09:45 [facility] TYPE: Emergency COMPLAINT: - UNABLE TO MANAGE PAIN DIAGNOSES: - Urinary tract infection, site not specified - Hypertensive heart disease with heart failure - Heart failure, unspecified - Nicotine dependence, unspecified, uncomplicated - Allergy status to narcotic agent status - Unspecified abdominal pain - Other group home (current) drug therapy - penitentiary (current) use of aspirin 04/30/2018 08:30 [facility] TYPE: Emergency COMPLAINT: - BLOOD IN URINE/PAIN DIAGNOSES: - Hydronephrosis with renal and ureteral calculous obstruction - Hematuria, unspecified - Other bed bug exterminator (current) drug therapy - Hypertensive heart disease with heart failure - Allergy status to narcotic agent status - penitentiary (current) use of aspirin - Chronic obstructive pulmonary disease, unspecified - Heart failure, unspecified - Nicotine dependence, unspecified, uncomplicated INPATIENT VISIT TRACKING (12 MO.) 11/01/2018 16:56 [facility] TYPE: Medical Surgical COMPLAINT: - DECONDITIONING DIAGNOSES: - Chronic obstructive pulmonary disease, unspecified - Unspecified hemorrhoids - Pressure ulcer of unspecified buttock, stage 2 - Hyperlipidemia, unspecified - Do not resuscitate - Chronic respiratory failure with hypoxia - Malignant neoplasm of right ureter - penitentiary (current) use of aspirin - Hypertensive heart disease with heart failure - Neoplasm related pain (acute) (chronic) - Atherosclerotic heart disease of [place] coronary artery without angina pectoris - Other malaise - Dependence on supplemental oxygen - Opioid dependence, uncomplicated - Chronic diastolic (congestive) heart failure 10/25/2018 13:56 [facility] TYPE: Surgery DIAGNOSES: - Malignant neoplasm of right ureter 09/20/2018 16:51 [facility] TYPE: Medical Surgical COMPLAINT: - SHORTNESS OF BREATH DIAGNOSES: - Elevated white blood cell count, unspecified - Prediabetes - Malignant neoplasm of right ureter - Mild cognitive impairment, so stated - Acute and chronic respiratory failure with hypoxia - Chronic obstructive pulmonary disease with (acute) exacerbation - Obstructive sleep apnea (adult) (pediatric) - Bilateral primary osteoarthritis of knee - Chronic diastolic (congestive) heart failure - Vitamin D deficiency, unspecified - Major depressive disorder, single episode, unspecified - Other intervertebral disc degeneration, lumbar region - Acute and chronic respiratory failure with hypoxia - Chronic diastolic (congestive) heart failure - Atherosclerotic heart disease of [place] coronary artery without angina pectoris - Other intervertebral disc degeneration, lumbar region - Chronic obstructive pulmonary disease with (acute) exacerbation - Malignant neoplasm of right ureter - Hypertensive heart disease with heart failure - Dependence on supplemental oxygen - Migraine, unspecified, not intractable, without status migrainosus - Mild cognitive impairment, so stated - Hypertensive heart disease with heart failure - Neoplasm related pain (acute) (chronic) - Dependence on supplemental oxygen - Prediabetes - Secondary malignant neoplasm of unspecified lung - Nicotine dependence, cigarettes, uncomplicated - Bilateral primary osteoarthritis of knee - Nicotine dependence, cigarettes, uncomplicated - Major depressive disorder, single episode, unspecified - Vitamin D deficiency, unspecified - Neoplasm related pain (acute) (chronic) - Atherosclerotic heart disease of [place] coronary artery without angina pectoris - Migraine, unspecified, not intractable, without status migrainosus - Obstructive sleep apnea (adult) (pediatric) - Secondary malignant neoplasm of unspecified lung [email or web address]
--- NOTE | 2018-11-13 23:45 | NUR ---
ADMISSION ASSESSMENT COMPLETE. PATIENT REPORTS "9/10" PAIN IN ABDOMEN AND HEAD, PATIENT REPORTS PAIN IN HEAD IS FROM "MIGRAINE", PRN PAIN MEDICATION PROVIDED PER MAR ORDER. PATIENT DENIES SOB, DIFFICULY BREATHING, OR CHEST PAIN. PATIENT TOLERATING SPRITE SODA WELL, DENIES NAUSEA. ADELINE CRACKERS, BUTTER, AND WARM BLANKET PROVIDED TO PATIENT PER PATIENT REQUEST. INCISION SITE ON ABDOMEN FROM PREVIOUS SURGERY IS CDI, OPEN TO AIR, NO SIGNS OF NEW DRAINAGE. IV FLUIDS INFUSING PER DEC ORDER. PATIENT EXHIBITED SLIGHT CONFUSION TO WHY SHE CAME TO THE HOSPTIAL, REORIENTED BY HEENA MA. ACTIVE BOWEL TONES PRESENT, PATIENT DENIES PASSING FLATUS. CALL LIGHT WITHIN REACH. NO MORE NEEDS AT THIS TIME.
--- NOTE | 2018-11-14 00:12 | NUR ---
ADMISSION COMPLETED. PATIENTS EVENING MEDICAITONS GIVEN PER ORDER. PATIENT RATES PAIN AT A 8/10 IN HER LOWER ABD. PATIENT GIVEN SCHEDULED PAIN MEDICATION PER ORDER. CALVIN MA IN THE ROOM. IV INFUSING. CALL LIGHT IN REACH.
--- NOTE | 2018-11-14 00:50 | NUR ---
ROUNDED ON PATIENT TO ANSWER CALL LIGHT. PATIENT REPORTS PAIN A "9/10" PAIN IN ABDOMEN. PATIENT EXHIBITING TENSING AND GRIMACING. PRN PAIN MEDICATION PROVIDED PER MAR ORDER. WARM BLANKET PROVIDED TO PATIENT. CALL LIGHT WITHIN REACH. NO MORE NEEDS AT THIS TIME.
--- NOTE | 2018-11-14 01:36 | NUR ---
rounded on patient to adminster scheduled pain medication per dec order for "9/10" pain in abdomen. warm blanket provided to patient. call light within reach. no more needs at this time.
--- NOTE | 2018-11-14 02:43 | NUR ---
ROUNDED ON PATIENT RESTING IN BED WITH EYES CLOSED, RESPIRATORY RATE IS EVEN AND UNLABORED, RR: 16. POSSESSIONS AT BEDSIDE. CALL LIGHT WITHIN REACH.
--- NOTE | 2018-11-14 04:30 | NUR ---
ASSESSMENT COMPLETE. PATIENT REPORTS "710" PAIN IN ABDOMEN, VISIBLE TENSING ASSESSED, WARM BLANKET PROVIDED TO PATIENT AND TV ON FOR DISTRACTION. SINTA, SOFTWARE ENGINEER BACKEND, SBA PATIENT TO RESTROOM. PATIENT DENIES CHEST PAIN, SOB, OR DIFFICULTY BREATHING. IV FLUIDS INFUSING FLUIDS PER MAR ORDER. CALL LIGHT WITHIN REACH. NO MORE NEEDS AT THIS TIME. INCISION ON ABDOMEN FROM PREVIOUS SURGERY IS CDI, NO NEW DRAINAGE NOTED.
--- NOTE | 2018-11-14 05:35 | NUR ---
ARRIVED TO FLOOR A LITTLE BEFORE MIDNIGHT. SLEPT ON AND OFF THROUGHOUT SHIFT. PRN PAIN MEDICATION X1. SCHEDULED PAIN PATCH IN PLACE PER ORDER. WARM BLANKETS PROVIDED FOR ABDOMINAL PAIN. 2L VIA NC, CHRONIC FOR PATIENT. SBA TO BATHROOM, CALLS APPROPRIATELY. IV FLUIDS INFUSING PER MAR ORDER. REGULAR DIET.
--- NOTE | 2018-11-14 06:48 | NUR ---
PATIENT IS RESTING IN BED WITH EYES CLOSED, RR 16. CALL LIGHT IN REACH.
--- NOTE | 2018-11-14 09:32 | NUR ---
PT IN BED CURLED INTO POSITION QUIETLY CRYING. STATES SHE IS IN 10/10 PAIN. GIVEN SCHED AND PRN PAIN MEDICATION. VS STABLE.
[2018-11-14] MEDS ORDERED: FENTANYL1 EAC4 TD (09:38)
[2018-11-14] MEDS ORDERED: CEPHALEXIN250 MG PO (09:39)
--- NOTE | 2018-11-14 11:02 | NUR ---
PT SON MARIANNA CAME TO FITTING ROOM ASSOCIATE PT AND TAKE BACK TO FACILITY. PT APPEARS LESS PAINFUL, ABLE TO AMB TO RESTROOM WITH MINIMAL ASSIST. DC'D ON HOME O2 TANK. ASSISTED TO DRESS. IV REMOVED WNL. VS STABLE. EDUCATION GIVEN TO SON, QUESTIONS ANSWERED. PHARM MARIYA TALKED TO MARIANNA ABOUT NEW MEDICATION.
== END 2018-11-14 10:50 | disposition home or self-care (01) ==
LOC: ED 17:12 → MS 17:14
PROVIDERS: ADMIT Internal Medicine
DX: R10.30 Lower abdominal pain, unspecified (principal); G89.29 Other chronic pain; N39.0 Urinary tract infection, site not specified; I95.9 Hypotension, unspecified; F17.200 Nicotine dependence, unspecified, uncomplicated; J44.9 Chronic obstructive pulmonary disease, unspecified; I11.0 Hypertensive heart disease with heart failure; C66.1 Malignant neoplasm of right ureter; C78.7 Secondary malignant neoplasm of liver and intrahepatic bile duct; I50.9 Heart failure, unspecified; I25.2 Old myocardial infarction; Z95.5 Presence of coronary angioplasty implant and graft; Z88.5 Allergy status to narcotic agent; Z66 Do not resuscitate; Z79.02 Long term (current) use of antithrombotics/antiplatelets; Z79.891 Long term (current) use of opiate analgesic; Z79.51 Long term (current) use of inhaled steroids; Z79.899 Other long term (current) drug therapy
CPT/HCPCS: 36415; 74177; 80048; 80053; 81001; 83605; 83690; 83735; 84100; 85025; 87040; 87077; 87088; 87186; 96361; 96374; 96375; 96376; 99284-25; G0378; J0696; J2405; J3010; J7030; J7040; Q9967